=== PATIENT | female | born 1960 | race Caucasian/White ===

== ENCOUNTER 2017-01-30 02:26 | Emergency (ER) | payer MEDICARE, MEDICAID ==
[2016-09-22 10:45] VITALS: BMI 37.2
[~2017-01-30 02:26] MED LIST: ACTOS15 MG PO; ASCORBIC ACID500 MG PO; BOOST PO; CARAFATE1 G/10 ML PO; CELEXA40 MG PO; CHRONULAC30 ML PO; CIPRO500 MG PO; COZAAR100 MG PO; DAKIN'S 0.125%480 ML TP; DEXTROSE 50%/WA50 ML IV; DILAUDID 012 MG/30 M IV; DIPROLENE 0.05%60 M1 TOPICAL; DRISDOL50000 UNIT PO; ENSURE PO; GABAPENTIN100 MG PO; GLUCAGON1 MG/KIT IM; GLUCAGON1 MG/KIT SQ; HUMULIN R100 U/ML SQ; HYDROCODON-ACE1 EAC9 PO; INSTA-GLUCOSE31 GM PO; JUVEN PO; LEVAQUIN PREMI750 MG IV; LEVEMIR100 U/M1 SQ; LOVENOX40 MG/0.4 SQ; MACROBID100 MG PO; MOTRIN600 MG PO; NARCAN INJ0.4 MG/ML IV; NEURONTIN 100100 MG PO; NEURONTIN600 MG PO; NORCO 10/325 TA1 TA1 PO; NORVASC5 MG PO; NOVOLIN R100 U/ML SQ; OXYBUTYNIN CHLOR5 MG PO; OXYCODONE HCL10 MG PO; PERCOCET 10/3251 TA1 PO; PRILOSEC20 MG PO; PROTEIN LIQUID30 ML PO; PROTONIX40 MG PO; TYLENOL W/CODEI1 TAB PO; VESICARE10 MG PO; VITAMIN D50000 UNIT PO; [UNRECOGNIZED DRUG - OTHER]
== END 2017-01-30 03:49 | disposition home or self-care (01) ==
LOC: D.ER 02:26
DX: S39.012A Strain of muscle, fascia and tendon of lower back, initial encounter (principal); W01.0XXA Fall on same level from slipping, tripping and stumbling without subsequent striking against object, initial encounter; Y93.89 Activity, other specified; Y92.019 Unspecified place in single-family (private) house as the place of occurrence of the external cause; S32.029A Unspecified fracture of second lumbar vertebra, initial encounter for closed fracture; I10 Essential (primary) hypertension; G47.30 Sleep apnea, unspecified; F17.200 Nicotine dependence, unspecified, uncomplicated

== ENCOUNTER 2017-03-05 16:54 | Inpatient (IN) | payer MEDICARE, MEDICAID ==
[~2017-03-05] VITALS: Ht 160 cm; Wt 110.5 kg
--- NOTE | ~2017-03-05 | HEMODYNAMI ---
PATIENT:TIMO FUCHS MEDICAL RECORD: [id number] : 60 [id number] ADMISSION DATE: 03/05/17 Generatedon:03/11/201714:14 Patient name: TIMO FUCHS Patient #: [id number] SSN: : Date of study: 03/11/2017 Page: Of Hemodynamic Procedure Report Patient Data Patient Demographics Procedure consent was obtained First Name: TIMO Gender: Female Last Name: JEF : 1960 Middle Initial: L Age: 56 year(s) Patient #: [id number] Race: Unknown Additional ID: [id number] Contact details Address: [address] [place] [address] [place] State: [place] City: [facility] Zip code: [address] Admission Admission Data Admission Date: 03/05/2017 Admission Time: 16:54 Room #: .211 Procedure Procedure Types Cath Procedure Peripheral Cath Diagnostic Procedure Miscellaneous Procedure Description Procedure Date Procedure Date: 03/11/2017 Procedure Start Time: 13:25 Procedure End Time: 14:13 Procedure Staff Name Function Ulises Miller MD Performing Physician Teagan Mccrackne RT Scrub Zo Ruffin RN Nurse Ramesh Ashton RT Monitor Procedure Data Cath Procedure Fluoroscopy Diagnostic fluoroscopy Total fluoroscopy Time: 6.5 time: 6.5 min min Diagnostic fluoroscopy Total fluoroscopy dose: 704 dose: 704 mGy mGy Hemodynamics Rest Heart Rate: 77 (bpm) Snapshots Pre Cath Intra NCS Post Cath Vital Signs Time Heart Resp SPO2 NIBP (mmHg) Rhythm Pain Sedation Rate (ipm) (%) Status Level (bpm) 13:11:01 76 18 98 Measuring NSR 0 (11) 10(A) , No pain 13:11:34 75 15 99 146/70(112) NSR 0 (11) 9(A) , No pain 13:16:33 73 14 97 Auto NIBP NSR 0 (11) 9(A) off , No pain 13:21:32 74 19 99 Auto NIBP NSR 0 (11) 9(A) off , No pain 13:22:42 74 19 99 133/67(103) NSR 0 (11) 9(A) , No pain 13:27:41 76 18 95 Auto NIBP NSR 0 (11) 9(A) off , No pain 13:30:16 81 20 96 139/65(99) NSR 0 (11) 9(A) , No pain 13:35:16 86 17 97 Auto NIBP NSR 0 (11) 9(A) off , No pain 13:39:13 91 21 95 138/58(104) NSR 0 (11) 9(A) , No pain 13:44:12 97 19 96 Auto NIBP NSR 0 (11) 9(A) off , No pain 13:49:11 104 19 96 Auto NIBP NSR 0 (11) 9(A) off , No pain 13:51:16 107 17 96 158/68(105) NSR 0 (11) 9(A) , No pain 13:56:15 115 21 97 Auto NIBP NSR 0 (11) 9(A) off , No pain 14:01:14 122 18 96 Auto NIBP NSR 0 (11) 9(A) off , No pain 14:06:13 123 18 98 Auto NIBP NSR 0 (11) 9(A) off , No pain 14:11:12 119 19 97 Auto NIBP NSR 0 (11) 9(A) off , No pain Procedure Log Time Note 12:43:43 Ramesh [facility] RT (R) (CV) sent for patient. Start room use. 12:43:50 Time tracking: Regular hours 12:43:55 Plan of Care:Hemodynamics will remain stable., Cardiac rhythm will remain stable., Comfort level will be maintained., Respiratory function will remain adequate., Patient/ family verbilizes understanding of procedure., Procedure tolerated without complication., Recovers from procedure without complications.. 12:44:04 Warm blankets applied, and sebastian hugger turned on for patient comfort. 12:44:13 Signed procedure consent form obtained from patient. 12:44:14 Correct patient and procedure confirmed by team. 12:44:16 ECG and BP/O2 sat monitors applied to patient. 12:44:22 Rhythm: sinus rhythm 12:44:27 Full Disclosure recording started 12:44:27 - 12:44:30 H&P Date Dictated: 03/11/2017 Within 30 days and on chart.. 12:44:31 Pre-procedure instructions explained to patient. 12:44:32 Pre-op teaching completed and patient verbalized understanding. 12:44:33 Family in waiting room. 12:44:35 Patient NPO since Midnight. 12:44:40 - 12:45:38 SEE ANESTHESIA NOTE FOR PRE PROCEDURE TIVA 12:46:00 Sharps counted by scrub and verified by R.N. 12:46:22 Lumbar area was prepped with betadine and draped in sterile fashion 12:46:36 Use device set IR Diagnostic 12:46:38 Sterile Angiographic Pack opened to sterile field. 12:46:38 Bag Decanter opened to sterile field. 13:09:12 Vital chart was started 13:09:30 Baseline sample Acquired. 13:24:02 Physician arrived 13:24:03 --------ALL STOP TIME OUT------ 13:24:04 Final Timeout: patient, procedure, and site verified with staff and physician. All members of the team are in agreement. 13:24:09 Lumbar site verified by team. 13:24:48 Physical assessment completed. ASA score P 3 - A patient with severe systemic disease as per Ulises Miller MD. 13:24:52 Sedation plan: IV Moderate Sedation Propofol 13:24:56 Procedure started. 13:25:04 Local anesthetic to Lumbar area with Lidocaine 1% by Ulises Miller MD.INITIAL ACCESS ONLY 13:25:42 JORJE 15/2 VERT AUGMENTATION opened to sterile field. 13:25:42 JORJE AUTOPLEX MIXER W/VHV opened to sterile field. 13:25:43 [place] 11G Curved Needle opened to sterile field. 13:25:44 [place] BONE BX 11GA kit opened to sterile field. 13:35:06 BX L-2 TAKEN 13:44:12 Jorje Hand Drill 10G opened to sterile field. 13:44:15 JORJE 10 G CURETTE opened to sterile field. 13:57:50 Procedure ended.(Physican Out) 13:58:40 Fluoroscopy time 06.50 minutes. 13:58:45 Fluoroscopy dose: 704 mGy 13:58:45 Flurop Dose total: 704 13:58:48 Insertion/operative site no bleeding no hematoma. 13:58:58 Post Lumbar area:stable 13:59:04 Post-procedure physical assessment completed. ASA score P 3 - A patient with severe systemic disease as per Ulises Miller MD. 13:59:19 Procedure and supply charges have been captured, reviewed, submitted an d are correct. 14:13:28 Patient transfered to Recovery Room with Bed. 14:13:32 Procedure ended. 14:13:32 Full Disclosure recording stopped 14:14:11 Vital chart was stopped Device Usage Item Name Manufacture Quantity Catalog Hospital Part Current Minim al Lot# / Number Charge Number Stock Stock Serial# Code Sterile Cardinal 1 [id number] 5 Angiographic Health Pack Bag Decanter Microtek 1 [id number] [id number] 5 [employer] JORJE 15/2 Jorje 1 [id number] [id number] [id number] 5 VERT AUGMENTATION JORJE [place] 1 [id number] 827170 83594 [id number] 5 AUTOPLEX MIXER W/VHV [place] 11G [place] 1 [id number] 112014 521586 5 Curved Needle Jorje BONE [place] 1 [id number] [id number] [id number] 5 BX 11GA kit [place] Hand Jorje 1 [id number] 565744 [id number] 5 Drill 10G JORJE 10 G [place] 1 [id number] 705392 [id number] 5 CURETTE Signature Audit [place] Stage Time Signature Unsigned Intra-Procedure 03/11/2017 Ramesh 2:14:09 PM Daisha RT (R) (CV) Signatures Monitor : Ramesh Signature : Daisha RT Date : Time : [address] [place] [address]
[2017-03-05 17:29] VITALS: BP 154/80; BMI 32.6
[2017-03-05 18:31] LABS: BASOPHILS 0.1 % (0.0-2.0); EOSINOPHILS 1.1 % (0-7); HEMATOCRIT 33.4 % (36.0-48.0); HEMOGLOBIN 11.2 g/dL (12-16); IMMATURE GRANULOCYTES 0.1 % (0-5); LYMPHOCYTES 9.2 % (15-50); MCH 29.9 pg (26.0-34.0); MCHC 33.5 g/dL (31.0-37.0); MCV 89.1 fL (80.0-100.0); MEAN PLATELET VOLUME 10.2 fL (7.4-10.4); MONOCYTES 7.1 % (2-11); NEUTROPHILS 82.4 % (40-80); RBC 3.75 10x6/uL (4.00-5.40); RDW 15.2 % (11.5-14.5)
[2017-03-05 18:36] LABS: PLATELET COUNT 111 10x3/uL (130-400)
--- NOTE | 2017-03-05 18:52 | NUR ---
PT REFUSED TO ALLOW ME TO ACCESS HER PORT OR START IV UNTIL HER PAIN MEDICATION KICKS IN. ALSO REFUSED LOVENOX UNTIL MED KICKED IT SO I HAD PHARMACY RETIME MEDS AND GAVE SHIFT REPORT AND NIGHTSHIFT WILL ACCESS.
[2017-03-05 18:55] LABS: ALBUMIN 2.8 g/dL (3.4-5.0); ANION GAP 16.5 mmol/L (8-16); BILIRUBIN - TOTAL 0.57 mg/dL (0.2-1.3); CARBON DIOXIDE 18.1 mmol/L (21.0-32.0); CREATININE - SERUM 1.7 mg/dL (0.6-1.3); POTASSIUM - SERUM 3.6 mmol/L (3.5-5.1); PROTEIN - SERUM 9.1 g/dL (6.4-8.2)
[2017-03-05 19:00] VITALS: BP 141/40
--- NOTE | 2017-03-05 19:27 | NUR ---
BACK IN ROOM FROM X RAY. NOTIFIED PT THAT WE WILL HAVE EDUCATION PROGRAM MANAGER HERE TO ACCESS IFP.
--- NOTE | 2017-03-05 19:30 | NUR ---
SPOKE WITH DR NOLASCO, INFORMED OF CRITICALLY HIGH CALCIUM. ORDERS GIVEN AND PLACED IN [facility].
--- NOTE | 2017-03-05 20:37 | NUR ---
GALO Verde RN AT BED SIDE TO ACCESS LEFT CHEST INFUSAPORT, 3/8 TH INCH, 20 GUAGE WHEELER NEEDLE USED TO ACCESS PORT USING STERILE TECHNIQUE. FLUSHES WITH OUT DIFFICULTY AND EASY BLOOD RETURN NOTED. PT TOLERATED WELL.
--- NOTE | 2017-03-05 21:36 | NUR ---
CHANGED OUT WAFER AND BAG OF ILEOSTOMY. PTS ABD RED AND EXCORIATED, OPEN SORE TO RIGHT SIDE ABD. UNSTAGABLE WOUND NOTED TO PTS RIGHT GROIN, MULTIPLE OPEN AREAS ALSO NOTED TO FOLDS IN BETWEEN BUTTOCKS AND BILATERAL GLUTEAL FOLDS. HAD CHARGE NURSE ASSESS WOUNDS WELL. PT STATES THAT WOUNDS "ARE VERY PAINFUL" INFORMED PT THAT I WILL PUT IN A WOUND CARE CONSULT FOR TREATMENT AND THAT I WILL BE BACK SHORTLY WITH MORPHINE FOR PAIN CONTROL. REPOSITIONED IN BED FOR COMFORT. BED LOW, CL IN REACH.
--- NOTE | 2017-03-05 22:03 | NUR ---
HS MEDS GIVEN, MORPHINE 2 MG GIVEN FOR C/O PAIN, PT REATES PAIN AT AN 8 ON PAIN SCALE. ROCEPHIN INFUSING TO LEFT CHEST INFUSAPORT, NO S/S ADVERSE REACTION NOTED.
--- NOTE | 2017-03-06 06:44 | NUR ---
MANUFACTURING SUPERVISOR 2ND SHIFT AT BED SIDE, BATH AND LINEN CHANGE COMPLETE.
--- NOTE | 2017-03-06 06:50 | NUR ---
MEDITECH DOWN THROUGHOUT THE NIGHT, SEE PAPER NARRATIVE.
[2017-03-06 07:08] LABS: BASOPHILS 0.2 % (0.0-2.0); EOSINOPHILS 2.4 % (0-7); HEMATOCRIT 30.5 % (36.0-48.0); IMMATURE GRANULOCYTES 0.2 % (0-5); LYMPHOCYTES 7.5 % (15-50); MCH 28.8 pg (26.0-34.0); MCHC 32.8 g/dL (31.0-37.0); MCV 87.9 fL (80.0-100.0); MEAN PLATELET VOLUME 9.6 fL (7.4-10.4); MONOCYTES 8.9 % (2-11); NEUTROPHILS 80.8 % (40-80); PLATELET COUNT 106 10x3/uL (130-400); RBC 3.47 10x6/uL (4.00-5.40); RDW 15.4 % (11.5-14.5); WBC 6.3 10x3/uL (4.8-10.8)
[2017-03-06 07:11] LABS: CARBON DIOXIDE 17.9 mmol/L (21.0-32.0); CREATININE - SERUM 1.6 mg/dL (0.6-1.3); POTASSIUM - SERUM 3.9 mmol/L (3.5-5.1)
[2017-03-06 08:22] LABS: APTT 34.1 SECONDS (22.8-39.4); INR 1.45 (0.85-1.17); PROTIME 17.6 SECONDS (11.6-15.0)
[2017-03-06 08:50] VITALS: BP 133/57
[2017-03-06 10:26] VITALS: Ht 160 cm; Wt 110.5 kg
[2017-03-06 10:53] LABS: ALBUMIN 2.4 g/dL (3.4-5.0)
--- NOTE | 2017-03-06 11:50 | NUR ---
WOUND CARE CONSULT: ON ASSESSMENT NOTED PT TO HAVE NUMEROUS PRESSURE INJURIES AND OPEN WOUNDS. FROM SACRUM TO COCCYX/PERINEAL AREA IS OPEN WITH STAGE 2 PRESSURE INJURIES. WOUND BEDS ARE RED/PINK/SHINY. ENTIRE AREA MEASURES APPROX 19CM X 3CM X 1CM. PERIWOUND APPEARS NORMAL. RIGHT GLUTEAL FOLD HAS 2 STAGE 3 PRESSURE INJURIES. #1 MEASURES 0.5CM X 1CM X 1.5CM #2 MEASURES 2CM X 4CM X 2CM X 2.4CM @ 10 OCLOCK LEFT GLUTEAL FOLD STAGE 3 PRESSURE INJURY MEASURINCM X 1.5CM X 1CM LABIA: HAS OPEN WOUND MEASURING 1CM X 1.5CM X 1CM RIGHT LOWER ABDOMINAL QUAD HAS OPEN AREAS MEASURING: #1 2.5CM X 7CM #2 2.5CM X 4CM BOTH ARE SUPERFICIAL AND HAVE RED/PINK WOUND BEDS. LLQ ILOSTOMY/PT TAKES CARE OF THIS. PT STATES THAT NOTHING IS BEING DONE FOR ABOVE MENTIONED WOUNDS AT HOME. SHE DOES NOT WANT AN AIR OVERLAY MATTRESS. SHE DOES WANT A GOMEZ CATH. DR. MORAN WAS CALLED BY STUDENT AND ORDERS WERE RECEIVED FOR F/C. WOUND CARE RECOMMENDS USING 1/4" IODOFORM PACKING TO WOUNDS FROM SACRUM TO COCCYX TO GLUTEAL FOLDS. PT CAN ONLY USE MEDIPORE TAPE SO COVER WOUNDS WITH ABD PADS TO CUSHION AND SECURE WITH MEDIPORE. DRY DRESSING APPLIED TO ABDOMEN. WOUND CARE WILL MONITOR.
[2017-03-06 11:54] VITALS: BP 155/44
--- NOTE | 2017-03-06 12:00 | NUR ---
REPORT OF WOUNDS CALLED TO DR MORAN. ORDERED RECIEVED TO PLACE INDWELLING GOMEZ CATHETER INSTEAD OF THE IN AND OUT CATH PREVIOUSLY ORDERED PER WALI WIGGINS RN NPC
--- NOTE | 2017-03-06 12:15 | NUR ---
16 KINYARWANDA GOMEZ INSERTED USING ASEPTIC TECHNIQUE IMMEDIATE RETURN OF CLEAR YELLOW URINE NOTED IN COLLECTION CONTAINER. STERILE SPECIMEN OBTAINED. PT TOLERATED PROCEDURED WELL TO RIGHT TILT POSITION WITH HOB 30 DEGREES. PT DENIES PAIN OR FURTHER NEEDS AT THIS TIME. ALL INTERVENTIONS PRECEPTED BY WALI WIGGINS RN
--- NOTE | 2017-03-06 14:00 | HP ---
PATIENT: TIMO FUCHS MEDICAL RECORD: [id number] ACCOUNT: [id number] LOCATION:[address] : 60 ADMISSION DATE: 03/05/17 HISTORY AND PHYSICAL EXAMINATION DATE OF ADMISSION: 03/05/2017 CHIEF COMPLAINT: Back pain and infection on belly. HISTORY OF PRESENT ILLNESS: This is a 56-year-old female with a history of diabetes, hidradenitis and ulcerative colitis, status post multiple revisions of ostomy on her abdomen. She fell going into her home, January 30 and came here and had a CT of her lumbar spine showing L2 compression fracture and that pain has gotten worse now. She also has cellulitis noted on her abdomen, is been going on for a couple of weeks. At that point, it was decided to admit her to the hospital for treatment of cellulitis and for her uncontrolled back pain due to compression fracture. PAST MEDICAL AND SURGICAL HISTORY: She has been admitted several times by Dr. Valderrama for revisions for her ostomy. She has had multiple ventral hernias. She has diabetes, depression, high cholesterol, hypertension, hidradenitis, familial hypercalcemia, sleep apnea on CPAP, iron deficient anemia, hepatitis C, cirrhosis and peripheral neuropathy. PAST SURGICAL HISTORY: She has had a total colectomy with ileostomy due to her ulcerative colitis and multiple ventral hernia repairs subsequently. HOME MEDICATIONS: Include oxycodone 10 mg twice a day, VESIcare 10 mg once a day, losartan 100 mg once a day, gabapentin 100 mg in the morning, 1 at noon and 3 at bedtime, citalopram 40 mg a day, amlodipine 5 mg a day, alprazolam 1 twice a day p.r.n. anxiety. ALLERGIES: SHABNAM INHIBITORS. SOCIAL HISTORY: She is and on disability due to her medical problems. HABITS: She smokes daily. Denies any alcohol use. She may have smoked some marijuana for recreationally. FAMILY HISTORY: History of cardiovascular disease and diabetes and sister of cancer. REVIEW OF SYSTEMS: GENERAL: No major weight changes. HEENT: No particular sinus or allergy problems. RESPIRATORY: No diagnosis of emphysema or asthma, although she is a long time smoker. CARDIAC: No history of coronary artery disease. GASTROINTESTINAL: She has ulcerative colitis and had total colectomy with ileostomy. She has had multiple ventral hernias, has had multiple revision of her ostomy ____ by Dr. Valderrama recently. MUSCULOSKELETAL: A few arthritic aches and pains. NEUROLOGIC: No history of seizures. No migraine headaches. PSYCHIATRIC: She has depression. INTEGUMENT: She has history of hidradenitis. HISTORY AND PHYSICAL [id number] TIMO FUCHS PHYSICAL EXAMINATION: VITAL SIGNS: Temperature 98.4, pulse 80, respirations 19, blood pressure 154/80, O2 sat 98% on room air. GENERAL: This is an obese White female in pain. HEENT: Grossly within normal limits. NECK: Supple. HEART: Regular rate and rhythm without murmur. LUNGS: Clear. ABDOMEN: With multiple scars from previous surgeries. She has ileostomy bag located to the middle left upper abdomen. There is cellulitis noted in the lower half of the abdomen, more so on the right, there are shallow ulcerations noted there as well. EXTREMITIES: Trace edema. MUSCULOSKELETAL: Back exam with severe tenderness in the lumbar area. ASSESSMENT: 1. Cellulitis. 2. Compression fracture, 01/30/2017 with worsening pain. PLAN: We will admit for IV antibiotics and pain control. We consult interventional radiology. Other tests and procedures as warranted. TRANSINT:[id number] Voice Confirmation ID: [id number] DOCUMENT ID: [id number] ERIKA MORAN MD at 1400 CC: [id number] DICTATION DATE: 03/05/172030 TEAM MANAGER: 03/05/172145 ADM IN [place] [id number] [place] [address]
[2017-03-06 14:02] LABS: APPEARANCE CLOUDY (CLEAR); BILIRUBIN NEGATIVE (NEGATIVE); COLOR YELLOW (YELLOW); GLUCOSE NEGATIVE (NEGATIVE); KETONE NEGATIVE (NEGATIVE); LEUKOCYTE ESTERASE 2+ (NEGATIVE); NITRITE NEGATIVE (NEGATIVE); PROTEIN TRACE mg/dL (NEGATIVE); SPECIFIC GRAVITY 1.015 (1.005-1.020); UROBILINOGEN NORMAL (NORMAL)
[2017-03-06 14:03] LABS: BACTERIA MODERATE /hpf (NONE SEEN); RED CELLS - URINE 0-5 /hpf (0-5)
[2017-03-06 14:04] LABS: AMORPHOUS SEDIMENT <1+ /lpf (NONE SEEN); GRANULAR CAST OCC /lpf (NONE SEEN); WAXY CAST RARE /lpf (NONE SEEN)
[2017-03-06 16:09] VITALS: BP 156/56
[2017-03-06 19:00] VITALS: BP 151/57
--- NOTE | 2017-03-06 19:28 | NUR ---
VALIUM 10 MG GIVEN PO SO PT CAN GO TO MRI. ILEOSTOMY LEAKING, REMOVED WAFER AND BAG, CLEANSED AREA AROUND STOMA AND REPLACED CLEAN WAFER AND BAG TO LEFT ABD. DRSG TO RIGHT ABD ALSO SOILED AND CHANGED. BATH AND LINEN CHANGE COMPLETE. DRSGS TO BUTTOCKS INTACT. GOMEZ DRAINING TO GRAVITY, PT DENIES NEEDS, WILL CONT TO MONITOR.
--- NOTE | 2017-03-06 20:15 | NUR ---
GONE TO MRI BY JEAN CARLOS.
--- NOTE | 2017-03-06 20:51 | NUR ---
HEARING AID DISPENSER CALLED, PT REQUESTING PAIN MEDS, MORPHINE 2 MG TAKEN TO MRI AND GIVEN VIA LEFT CHEST IFP.
--- NOTE | 2017-03-06 21:24 | NUR ---
BACK TO ROOM FROM MRI.
--- NOTE | 2017-03-06 21:48 | NUR ---
HS MEDS GIVEN. DENIES FURTHER NEEDS, BED LOW, CL IN REACH.
[2017-03-07] VITALS: BP 122/55
--- NOTE | 2017-03-07 00:57 | NUR ---
RESTING WITH EYES CLOSED, RESPERATIONS EVEN, NO S/S DISTRESS NOTED.
--- NOTE | 2017-03-07 03:41 | NUR ---
AUTOMOBILE DETAILER AT BEDSIDE TO OBTAIN VITALS, CALL LIGHT IN REACH. WILL CONTINUE WITH PLAN OF CARE.
[2017-03-07 04:00] VITALS: BP 95/47
--- NOTE | 2017-03-07 08:10 | NUR ---
PATIENT IS AWAKE AND ALERT, DENIES NEEDS. SHE WORE HER CPAP WHILE ASLEEP.
[2017-03-07 08:24] VITALS: BP 124/45
--- NOTE | 2017-03-07 11:32 | NUR ---
PATIENT IS RESTING WITH HOB UP 45 DEGREES. SHE IS AWAKE AND INTERACTIVE. SHE HAS A PERSONAL ODOR THAT RESEMBLES A YEAST. FRESH WATER GIVEN TO TAKE MEDICATIONS WITH. SHE DENIES OTHER NEEDS AT THIS TIME. SHE HASN'T HAD A BATH YET TODAY.
[2017-03-07 11:55] VITALS: BP 131/57
--- NOTE | 2017-03-07 12:19 | NUR ---
PATIENT SITTING UP IN HER BED EATING HER LUNCH. SHE STATE SHAT HER PAIN IS LESS SINCE "GETTING OFF MY BUTT".
[2017-03-07 16:21] VITALS: BP 126/55
--- NOTE | 2017-03-07 16:28 | NUR ---
Patient Name: TIMO FUCHS Admission Status: Urgent Accout number: [id number] Admission Date: 03-05-2017 : 1960 Admission Diagnosis:CELLULITIS OF ABDOMINAL WALL Attending: MIGUELANGEL Current LOS: 2 Anticipated DC Date: TO BE DETERMINED Planned Disposition: [facility] Facility Primary Insurance: [facility] PLANNED EXTERNAL PROVIDER: [facility], MEDICARE REHAB BED Discharge Planning Comments: * Is the patient Alert and Oriented? Yes 0 * How many steps to enter\exit or inside your home? 5 0 * PCP DR. MORAN 0 * Pharmacy [facility] [address] BY ISAEL'Sravani 0 * Preadmission Environment Home with Family 0 * ADLs Independent 0 * Equipment Cane CPAP Walker 0 * Other Equipment [facility] PATIENT - MEDICAL EQUIPMENT PROVIDER 0 * List name and contact numbers for known caregivers / representatives who currently or will assist patient after discharge: STANFORD FUCHS, SEPERATED SPOUSE, 0 * Community resources currently utilized None 0 * Please name any agencies selected above. NONE 0 * Additional services required to return to the preadmission environment? Yes * Can the patient safely return to the preadmission environment? Yes 0 * Has this patient been hospitalized within the prior 30 days at any hospital? No 0 CM MET WITH PT IN ROOM TO DISCUSS DISCHARGE PLANNING AND NEEDS. PT REPORTS LIVING AT HOME INDEPENDENTLY AND HER ADULT DAUGHTER IS LIVING WITH HER. PT HAS CANE, CPAP AND WALKER FROM [facility] PATIENT. PT HAS NO OUTSIDE SERVICES ASSISTING IN THE HOME. PT REPORTS HER SEPERATED SPOUSE HAS BEEN DELVERING MEDICATIONS TO HER AT HOME, HER NEPHEW HAD BEEN DOING ERRANDS SUCH SHOPPING AND HER DAUGHTER HAS BEEN HELPING TO CLEAN AND COOK AT HOME. CM DISCUSSED AVAILABILITY OF HOME HEALTH, REHAB SERVICES AND MEDICAL EQUIPMENT. PT FEELS SHE NEEDS REHAB AND HELP WITH WOUND CARE PRIOR TO GOING BACK HOME, PT DOES NOT THINK SHE CAN TOLERATE THREE HOURS OF PROGRESSIVE THERAPY PER DAY FOR INPATIENT REHAB. CM DISCUSSED SNF OPTIONS. PT CHOSE [facility] AND [facility] HER MOTHER HAD BEEN TO THE FACILITIES WHEN SHE WAS ALIVE. CHOICE SIGNED. CM NOTIFIED [facility], CLINICAL LIAISON OF REFERRAL, . CM FAXED REFERRAL TO [facility] AT [phone]. CM WAITING ADMISSION DETERMINATION AND INSURANCE AUTHORIATION TO THE [facility] OR [facility] FOR REHAB SERVICES. [place] Marshal: Bryan Dickinson
[2017-03-07 20:00] VITALS: BP 150/56
[2017-03-08] VITALS: BP 181/66
--- NOTE | 2017-03-08 00:47 | NUR ---
RESTING WITH EYES CLOSED, RESPERATIONS EVEN, NO S/S DISTRESS NOTED.
--- NOTE | 2017-03-08 04:17 | NUR ---
CHAIR AT BEDSIDE TO OBTAIN VITALS, CALL LIGHT IN REACH. WILL CONTINUE WITH PLAN OF CARE.
[2017-03-08 08:19] VITALS: BP 135/62
--- NOTE | 2017-03-08 08:22 | NUR ---
PATIENT IS SITTING UP IN HER BED, HEAD ELEVATED 60 DEGREES SHE EATS HER BREAKFAST. WE DISCUSSED HER POC FOR THE DAY. SHE ASKS ABOUT POSSIBILITY FOR ADMISSION INTO REHAB. ENCOURAGED HER TO PARTICIPATE WITH PT AND OT SO THAT HER LEVEL OF FUNCTIONING CAN BE ASSESSED AND A PLAN OBTAINED TO PREPARE HER FOR RETURN HOME OR TO A SKILLED FACILITY. SHE VOICED UNDERSTANDING.
--- NOTE | 2017-03-08 11:10 | NUR ---
PATIENT'S ILIOSTOMY BAG CHANGED AND LINENS CHANGED. ALSO DC'D THE GOMEZ CATHETER AFTER THE BULB DEFLATED. IT WAS REMOVED WITHOUT ANY C/O DISCOMFORT. PATIENT GOT UP OOB TO [facility] BEDSIDE AND WALKED ABOUT THE SIDE OF BED I CHANGED THE LINENS, ALL DONE INDEPENDENTLY
[2017-03-08 12:44] VITALS: BP 130/54
--- NOTE | 2017-03-08 13:49 | NUR ---
Nutrition Follow Up: Pt reported that her appetite is good. She said that she has been ordering Boost. Pt agreed to try Gerald BID. Pt is eating 83% meal avg on a regular diet. Noted per wound care nurse pt has multiple stage II and stage III ulcers, as well as multiple open areas. I<O. Labs reviewed - BUN, Cr elevated. Meds noted including NS @ 50 ml/hr. Rec continue current diet. Rec MV, Zinc, Vit C supplement daily. Will send Gerald BID. Will continue to provide selective menus and honor food preferences. RD following.
--- NOTE | 2017-03-08 14:19 | NUR ---
PATIENT'S BED LINENS CHANGED PER REQUEST. SHE IS VISITING WITH HER SISTER WHO HAS BEEN AT THE BEDSIDE MUCH OF THE MORNING AND AFTERNOON.
--- NOTE | 2017-03-08 15:57 | NUR ---
OT NOTE: PT COMPLETED BUE AROM EXS IN ALL PLANES WITH MAX CUES. PT COMPLETED HYGIENE TASK WITH MOD A. PT COMPLETED BED MOB. THANK YOU, GARLAND LOZANO/Vinay
[2017-03-08 16:00] VITALS: BP 148/64
[2017-03-08 19:00] VITALS: BP 136/58
--- NOTE | 2017-03-08 19:44 | NUR ---
ALERT/AWAKE DENIES PAIN OR ANY NEEDS. L CHEST IP INTACT WITH NS INFUSING AT 50ML/HR. LEFT LOWER ABD ILEOSTOMY CONTAINING DK BROWN LIQUID NOTED. ORIENTED TO CALL LIGHT FOR ANY NEEDS OR DISCOMFORTS.
--- NOTE | 2017-03-08 21:40 | NUR ---
ADMIN SCHED MEDS. EMPTIED ILEOSTOMY 300CC. ASSISTED TO BATHROOM TO VOID.
[2017-03-09] VITALS: BP 148/61
--- NOTE | 2017-03-09 00:30 | NUR ---
ONLINE MEDIA BUYER PRESENT IN ROOM TAKING VS. STATED SHE HAD EMPTIED ILEOSTOMY.
[2017-03-09 04:00] VITALS: BP 156/70
--- NOTE | 2017-03-09 04:48 | NUR ---
CHANGED ILEOSTOMY BAG AND DRESSINGS TO COCCYX/BUTTOCK FOLDS.
--- NOTE | 2017-03-09 07:15 | NUR ---
RECEIVED REPORT. ASSUMED CARE OF PATIENT. CALL LIGHT WITHIN REACH. PATIENT RESTING ON LEFT LATERAL SIDE WITH EYES CLOSED. EASILY AROUSED. RESP EVEN AND UNLABORED. NO DISTRESS. IV FLUIDS INFUSING ORDERED. DENIES NEEDS AT THIS TIME.
[2017-03-09 08:12] VITALS: BP 127/59
--- NOTE | 2017-03-09 10:00 | NUR ---
ILLEOSTOMY EMPTYED AT THIS TIME. RESTING IN BED. DENIES NEEDS.
[2017-03-09 11:49] VITALS: BP 146/55
--- NOTE | 2017-03-09 15:00 | NUR ---
ANSWERED EMERGENCY LIGHT IN PATIENT ROOM, WHEN ENTERED PATIENT PONCE, PATIENT SITTING ON BATHROOM FACING THE WALL. PATIENT SITTING ON PINK BED PAD IN THE FLOOR. PATIENT DENIES PAIN OR INJURIES AT THIS TIME. PATIENT PULLED OUT OF BATHROOM VIA PINK BED PAD AND ASSISTED TO STANDING POSITION WITH HELP OF LIANET SLATER. PATIENT ASSISTED TO STAND AFTER ENSURING PATIENT HAD FULL ROM TO BILATERAL LOWER EXTREMITIES. AFTER PATIENT ASSISTED TO STAND, PATIENT AMBULATED TO SIDE OF BED AND SAT DOWN. PATIENT STATES THAT SHE GOT UP TO GO TO THE BATHROOM AND HAS SMALL INCONTINENT EPISODE ON THE FLOOR SO SHE WENT TO THE BED AND GRABBED THE BEDPAD AND WENT BACK TO THE BATHROOM TO CLEAN UP THE URINE ON THE FLOOR AND THAT IS WHEN SHE SAT DOWN IN THE FLOOR. PATIENT STATED SHE WAS TOOK WEAK TO MAKE IT BACK TO THE BED. PATIENT CLEANSED UP, NEW GOWN APPLIED. BOX ALARM PATENT TO PATIENT AT THIS TIME. PATIENT DENIES PAIN OR DISCOMFORT. PATIENT SITTING IN BED CONSUMING SOFT DRINK AT THIS TIME. NO DISTRESS.
[2017-03-09 15:51] VITALS: BP 157/67
--- NOTE | 2017-03-09 18:00 | NUR ---
RESTING IN BED WITH EYES CLOSED. EASILY AROUSED. DENIES NEEDS AT THIS TIME.
[2017-03-09 20:57] VITALS: BP 122/50
--- NOTE | 2017-03-09 21:10 | NUR ---
ADMIN SCHED MEDS. EMPTIED ILEOSTOMY BAG. ASSISTED TO BR, BUT VOIDED ON FLOOR. CLEANED UP URINE, CHANGED BEDDING.
[2017-03-10 00:30] VITALS: BP 145/88
--- NOTE | 2017-03-10 02:58 | NUR ---
EMPTIED ILEOSTOMY. DENIES ANY NEEDS.
[2017-03-10 04:30] VITALS: BP 145/62
--- NOTE | 2017-03-10 07:00 | NUR ---
RECEIVED REPORT. ASSUMED CARE OF PATIENT. CALL LIGHT WITHIN REACH. PATIENT STATES SHE SLEPT WELL LAST NIGHT. DENIES NEEDS THIS AM. RESP EVEN AND UNLABORED. BOX ALARM ATTACHED TO GOWN ON RIGHT SHOULDER. NO DISTRESS.
[2017-03-10 08:12] VITALS: BP 143/77
--- NOTE | 2017-03-10 10:00 | NUR ---
PATIENT FOUND AT BEDSIDE WITHOUT BOX ALARM ATTACHED. BOX ALARM APPLIED AND REINFORCED THE NEED TO CALL FOR ASSISTANCE TO PREVENT INJURIES. PATIENT VERBALZIED HER UNDERSTANDING.NO DISTRESS.
[2017-03-10 11:52] VITALS: BP 149/54
[2017-03-10 15:13] VITALS: BP 171/75
--- NOTE | 2017-03-10 17:26 | NUR ---
ILLEOSTOMY CARE PROVIDED AT THIS TIME. COMPLETE NEW WAFFER AND BAG APPLIED AFTER PROVIDING SKIN CARE. NO DISTRESS.
--- NOTE | 2017-03-10 19:39 | NUR ---
RECEIVED IN BEDROO. LAYING WITH EYES CLOSED. NO SIGNS OF DISTRESS. BOX ALARM ON. ENCOURAGE TO ASK FOR ASSIST WHEN NEEDED. CONTINUE MONITOR. CALL LIGHT IN REACH
[2017-03-10 20:00] VITALS: BP 157/60
--- NOTE | 2017-03-10 22:52 | NUR ---
RESTING IN EYES CLOSED. NO SIGNS OF DISTRESS. BED ALARM ON. CALL LIGHT IN REACH
[2017-03-11] VITALS (11 sets, daily range): BP systolic 113–171; BP diastolic 60–76
--- NOTE | 2017-03-11 02:18 | NUR ---
RESTING IN BED WITH EYES CLOSED. NO SIGNS OF DISTRESS. CALL LIGHT IN REACH.
--- NOTE | 2017-03-11 07:24 | NUR ---
PT SITTING UP IN BED WAS JUST CLEANED UP FOR INC OF URINE. DENIES NEEDS WILL CONT TO MONITOR
[2017-03-11 07:56] LABS: APPEARANCE CLEAR (CLEAR); BILIRUBIN NEGATIVE (NEGATIVE); COLOR YELLOW (YELLOW); GLUCOSE NEGATIVE (NEGATIVE); KETONE NEGATIVE (NEGATIVE); LEUKOCYTE ESTERASE NEGATIVE (NEGATIVE); NITRITE NEGATIVE (NEGATIVE); PROTEIN NEGATIVE (NEGATIVE); SPECIFIC GRAVITY 1.015 (1.005-1.020); UROBILINOGEN NORMAL (NORMAL)
[2017-03-11 07:57] LABS: BASOPHILS 0 % (0.0-2.0); EOSINOPHILS 0 % (0-7); HEMATOCRIT 30.4 % (36.0-48.0); IMMATURE GRANULOCYTES 0.4 % (0-5); LYMPHOCYTES 5.3 % (15-50); MCH 29.5 pg (26.0-34.0); MCHC 32.9 g/dL (31.0-37.0); MCV 89.7 fL (80.0-100.0); MEAN PLATELET VOLUME 10.3 fL (7.4-10.4); MONOCYTES 3.6 % (2-11); NEUTROPHILS 90.7 % (40-80); PLATELET COUNT 101 10x3/uL (130-400); RBC 3.39 10x6/uL (4.00-5.40); RDW 15.8 % (11.5-14.5); WBC 6.7 10x3/uL (4.8-10.8)
[2017-03-11 08:06] LABS: ANION GAP 13.8 mmol/L (8-16); CARBON DIOXIDE 19.6 mmol/L (21.0-32.0); CREATININE - SERUM 1.4 mg/dL (0.6-1.3); POTASSIUM - SERUM 4.4 mmol/L (3.5-5.1)
[2017-03-11 08:11] LABS: CALCIUM 13.6 mg/dL (8.5-10.1)
[2017-03-11 08:19] LABS: INR 1.39 (0.85-1.17); PROTIME 16.9 SECONDS (11.6-15.0)
--- NOTE | 2017-03-11 09:12 | NUR ---
PT HAS CRITICAL HIGH CALCIUM OF 13.6. CALLED DR MORAN OFFICE AND SPOKE WITH CHLOE. ALSO ASKED IF PT COULD HAVE GOMEZ PLACED DUE TO STG 3- STG 4 SORES ON BOTTOM AND VAGINAL AREA. SHE IS GOING TO CALL ME BACK
--- NOTE | 2017-03-11 09:18 | NUR ---
DR MORAN GAVE OK FOR GOMEZ PLACEMENT. DR MORAN CALLED PHARM FOR ORDERS FOR HIGH CALCIUM
--- NOTE | 2017-03-11 09:51 | NUR ---
WAITING ON PHARM TO BRING UP MEDICATIONS TO GIVE PT
--- NOTE | 2017-03-11 10:23 | NUR ---
STUDENT NURSE INSERTED 16F GOMEZ STERILE TECHNIQUE INITIATED. 10CC STERILE FLUID INSERTED INTO BALLOON. STUDENT NURSE ALSO DID PT DRESSING CHANGE TO BOTTOM PER ORDER. R LABIAL FOLD NO DRESSING WILL STICK TO AREA. GOMEZ WAS PLACED TO KEEP MOISTURE AWAY FROM WOUNDS AND PROMOTE WOUND HEALING.
--- NOTE | 2017-03-11 11:56 | NUR ---
PT SITTING UP IN BED SLEEPING NO S/S DISTRESS NOTED WILL CONT TO MONITOR
--- NOTE | 2017-03-11 14:54 | NUR ---
PT BACK FROM KYPHOPLASTY VS WNL. SITE WNL. FAMILY AT BEDSIDE. PT STILL LETHARGIC WILL CONT TO MONITOR
--- NOTE | 2017-03-11 16:54 | NUR ---
PT SITTING UP IN BED SLEEPING NO S/S DISTRESS NOTED VS STILL WNL. SITE STILL WNL
--- NOTE | 2017-03-11 22:05 | NUR ---
ADMIN SCHED MEDS WITH SIPS OF WATER SWALLOWING WITHOUT DIFFICULTY. DENIES PAIN OR ANY NEEDS. L CHEST IP WITH NS INFUSING AT 50ML/HR. ILEOSTOMY BAG INTACT CONTAINING SMALL AMT FECAL MATTER. ORIENTED TO CALL LIGHT FOR ANY NEEDS.
--- NOTE | 2017-03-12 00:30 | NUR ---
SPA SUPERVISOR PRESENT IN ROOM TAKING VS. CHECK ILEOSTOMY BAG AND EXPELLED TO AIR IN IT. DENIES ANY NEEDS OR DISCOMFORTS.
[2017-03-12 00:36] VITALS: BP 154/61
--- NOTE | 2017-03-12 04:30 | NUR ---
MOBILITY SCOOTER REPAIRER PRESENT IN ROOM TAKING VS. DENIES PAIN OR ANY NEEDS. EMPTIED ILEOSTOMY BAG.
[2017-03-12 04:59] VITALS: BP 120/52; BP 161/64
[2017-03-12 07:49] VITALS: BP 159/64
--- NOTE | 2017-03-12 10:15 | NUR ---
Awake to name, able to verbalize name and , drowsy but follows conversation and answers. States no to any back pain, dressing from kypoplasty intact. Ileostomy left abd intact with greenish colored stool. No distress assessed.
[2017-03-12 11:19] VITALS: BP 156/71
--- NOTE | 2017-03-12 12:04 | NUR ---
Nutrition follow-up: Pt s/p marian. Diet: Regular PO intake ~75% average of ~75% of last 7 meals; pt was NPO x 2 meals Wt: 243# Ileostomy Pt receiving Gerald BID to aid with wound healing. Will continue to provide food choices and honor food preferences. RDN following.
--- NOTE | 2017-03-12 13:40 | NUR ---
Sitting up in bed continuing to eat her lunch, alert and wisting with family.
--- NOTE | 2017-03-12 14:14 | NUR ---
OT NOTE: PT SEEN TODAY PRIOR TO LUNCH. PT HAD A VERY DIFFICULT TIME PROCESSING WHAT THERAPIST WAS SAYING. SHE LOOKED AT ME WITH BLANK STARE, IF SHE DIDNT HEAR ME..REPEATED SEVERAL TIMES IN LOUD VOICE WITH NO RESPONSE; EXPLAINED TO PT THAT I WAS GOING TO GET SOMEONE TO HELP ME GET HER UP IN BED AND SHE SAID " THAT LADY'S GONE TO GET HELP" . ASKED ABOUT HER PAIN AND PAIN LEVEL 4 TIMES WITHOUT RESPONSE. PROVIDED SET UP OF TRAY, PT HAD NO PROBLEMS FEEDING SELF.
[2017-03-12 15:25] VITALS: BP 142/73
--- NOTE | 2017-03-12 17:40 | NUR ---
OT NOTE: PT COMPLETED SELF FEEDING TASK WITH SBA. PT COMPLETED BUE GROSS MOTOR AXS FOR INCREASED I WITH ADLS. PT COMPLETED BED MOB WITH SBA. THANK YOU, GARLAND LOZANO/Vinay
--- NOTE | 2017-03-12 17:47 | NUR ---
Patient Name: TIMO FUCHS Encounter No: [id number] : 1960 Primary Insurance: [facility] Anticipated DC Date: Planned Disposition: Senior Care Facility External Planned Provider: [facility], MEDICARE REHAB BED DCP follow-up note: CM RECEIVED CALL FROM DASH, CLINICAL LIAISON FOR [facility], , WHO REPORTS HAVING INSURANCE AUTHORIZATION FROM PT'S INSURANCE FOR REHAB. [facility] NEEDS TO KNOW PT'S OSTOMY SUPPLY NEEDS AND LATEST URINE CULTURES FAXED. CM SPOKE TO PT AND IDENTIFIED PT NEEDING LYNN LOCK AND ROLL DRAINABLE POUCH #[id number] / 4" CUT TO FIT SKIN BARRIER / PASTE. PT IN AGREEMENT WITH DISCHARGE TO [facility] FOR REHAB. CM FAXED REQUESTED INFORMATION TO [facility]. FOR DISCHARGE TO REHAB AT [facility], FAX DISCHARGE INFORMATION TO [facility] AT [phone]; CALL NURSE REPORT TO [facility] AT [phone]. [facility] TO ARRANGE VAN TRANSPORTATION. Bryan Dickinson, CASE MANAGEMENT
[2017-03-12 19:00] VITALS: BP 163/65
--- NOTE | 2017-03-12 19:17 | NUR ---
FAMILY AT NURSES DESK, EXPRESSING CONCERN ABOUT PTS CONFUSION. EXPLAINED TO DAUGHTER THAT I HAVENT NOTICED ANY CONFUSION IN PT THE SEVERAL NIGHTS THAT I HAVE CARED FOR HER, WENT OVER LAB VALUES WITH FAMILY. DAUGHTER ASKING ABOUT AMMONIA LEVEL AND ASKING IF ONE CAN BE ORDERED, INFORMED DAUGHTER THAT I WILL CALL DR MORAN AND ASK.
--- NOTE | 2017-03-12 19:40 | NUR ---
SPOKE WITH DR MORAN, EXPLAINED DAUGHTERS CONCERN, AMMONIA LEVEL ADDED TO AM LABS.
--- NOTE | 2017-03-12 20:17 | NUR ---
DRSG PLACED TO SMALL WOUND ON LEFT SIDE OF ABD ABOVE ILEOSTOMY.
--- NOTE | 2017-03-12 20:40 | NUR ---
HS MEDS GIVEN, RECLINER CHAIR TAKEN TO ROOM FOR SISTER TO STAY THE NIGHT.
--- NOTE | 2017-03-12 20:41 | NUR ---
REPOSITIONED IN BED, HS MEDS GIVEN, PT DENIES PAIN AND NEEDS, BED LOW, CL IN REACH.
[2017-03-13 00:34] VITALS: BP 163/68
--- NOTE | 2017-03-13 02:19 | NUR ---
RESTING WITH EYES CLOSED, RESPERATIONS EVEN, NO S/S DISTRESS NOTED.
[2017-03-13 04:00] VITALS: BP 160/75
--- NOTE | 2017-03-13 06:06 | NUR ---
NOTIFIED DR MORAN OF PTS ELEVATED AMMONIA LEVEL, NO NEW ORDERS GIVEN AT THIS TIME.
--- NOTE | 2017-03-13 07:00 | NUR ---
PT SITTING UP IN BED SLEEPING NO S/S DISTRESS NOTED FAMILY MEMBER AT BEDSIDE WILL CONT TO MONITOR
[2017-03-13 07:49] VITALS: BP 176/73
--- NOTE | 2017-03-13 09:28 | NUR ---
PT FAMILY MEMBER AT BEDSIDE. CHANGED PT JELANI AND BUTTOCK/COCCYX DRESSING EARLIER. PT CO PAIN DURING PROCEDURE. WOULD DOWN ENTIRE CREASE OF BUTTOCK AND GLUTEAL FOLDS. ALSO LABIAL FOLD. WOUND LOOKS PINK/RED. CLEANSED WITH WOUND CONSTRUCTION FOREMAN AND DID DRESSING PER ORDER. SIGNED AND DATED
--- NOTE | 2017-03-13 09:56 | NUR ---
CHANGED PT LEFT INFUSAPORT DRESSING PER UNIT PROTOCOL. STERILE TECHNIQUE INITIATED. SIGNED AND DATED DRESSING
[2017-03-13 11:29] VITALS: BP 175/66
--- NOTE | 2017-03-13 15:05 | NUR ---
PT SITTING UP IN BED SLEEPING SISTER AT BEDSIDE, NO S/S DISTRESS NOTED WILL CONT TO MONITOR
--- NOTE | 2017-03-13 15:06 | NUR ---
OT NOTE: PT WAS ASLEEP IN PM..DIFFICULT TO AROUSE
[2017-03-13 15:15] VITALS: BP 166/74
--- NOTE | 2017-03-13 17:27 | NUR ---
OT NOTE: PT COMPLETED BED MOB AND SITTING AT EOB WITH MIN/CGA. PT COMPLETED BUE GROSS MOTOR AX FOR INCREASED I WITH ADLS. PT COMPLETED HYGIENE TASK WITH SET UP. THANK YOU, GARLAND COLVIN/Vinay
--- NOTE | 2017-03-13 18:33 | NUR ---
CALLED TO PT ROOM, HER ILEOSTOMY BAG WAS LEAKING AND NEEDED TO BE CHANGED, LEAKED ONTO BOTTOM DRESSING. CHANGED ILEOSTOMY BAG, NO LEAKS NOTED. CHANGED BOTTOM DRESSING PER ORDER CDI, SIGNED AND DATED
[2017-03-13 19:00] VITALS: BP 163/69
--- NOTE | 2017-03-13 21:44 | NUR ---
HS MEDS GIVEN WITH FRESH ICE WATER, OXY CODONE 10 MG GIVEN FOR C/O PAIN.
[2017-03-14] VITALS: BP 127/47
--- NOTE | 2017-03-14 03:32 | NUR ---
RESTING WITH EYES CLOSED, RESPERATIONS EVEN, NO S/S DISTRESS NOTED.
[2017-03-14 04:00] VITALS: BP 167/63
--- NOTE | 2017-03-14 05:28 | NUR ---
CALL LIGHT IN REACH. WILL CONTINUE WITH PLAN OF CARE.
--- NOTE | 2017-03-14 06:55 | NUR ---
RECEIVED REPORT FROM HOSPITAL FELLOW NURSE, NERI DOWD. PT IN BED, STATES THAT SHE WANTS A CUP OF ICE WATER. STUDENT NURSE WILL PROVIDED PT WITH A CUP OF ICE WATER. PT DENIES ANY OTHER NEEDS AT THIS TIME. PT ASSESSED AT THIS TIME. CALL LIGHT IN REACH, NAD NOTED, WILL CONTINUE TO MONITOR.
[2017-03-14 08:15] VITALS: BP 143/59
--- NOTE | 2017-03-14 11:54 | NUR ---
ADMINISTERD NEURONTIN SCHEDULE. PT IN BED, WAS SLEEPING WHEN I WALKED IN. BUT EASLY AROUNSED. PT DENIES ANY NEEDS AT THIS TIME.CALL LIGHT IN REACH, NAD NOTED, WILL CONTINUE TO MONITOR
--- NOTE | 2017-03-14 11:59 | CN ---
PATIENT NAME:TIMO YANEZ MEDICAL RECORD: [id number] : 60 LOCATION:D. D.2111 ADMIT DATE: 03/05/17 ACCOUNT: [id number] CONSULTING PHYSICIAN: KALEY MORALES MD REFERRING PHYSICIAN: ERIKA MORAN MD DATE OF CONSULTATION: 03/13/2017 Surgical Consultation SURGEON: Kaley Morales MD. REASON FOR CONSULTATION: Perineal wound. HISTORY OF PRESENT ILLNESS: Mrs. Yanez is a 56-year-old female well known to the surgical service here at the hospital. She has a longstanding history of admission. She has had an incredibly complicated surgical past. She had a total abdominal colectomy and ileostomy for ulcerative colitis. She has had innumerable hernias and hernia repairs at this time as well as multiple parastomal hernia repairs, ileostomy repositioning and severe, recurrent, multiple abdominal wall infections and perineal infection requiring multiple debridements. She was readmitted to the hospital this week after a fall. She had a back fracture. She is noted after her kyphoplasty to have severe chronic nonhealing wound to the perineum. She does complain of some pain during dressing changes. PAST MEDICAL HISTORY: Ulcerative colitis, hypertension, depression; sleep apnea, on CPAP; diabetes, anxiety, neuropathy, hypothyroidism. PAST SURGICAL HISTORY: Total abdominal colectomy, ileostomy, appendectomy, multiple incisional hernia repairs, parastomal hernia repair, ileostomy reposition, ostomy revision, tonsillectomy, Infusaport placement. ALLERGIES: LISINOPRIL. HOME MEDICATIONS: Include [place], betamethasone cream, amlodipine, Celexa, losartan, Protonix, gabapentin, Carafate, and VESIcare. SOCIAL HISTORY: She smokes daily. She also smokes marijuana. FAMILY HISTORY: Her parents had neurological disorder, cardiovascular disease and diabetes. Her sibling has neurological disorder and cancer. PHYSICAL EXAMINATION: VITAL SIGNS: Temperature 97.5, heart rate 67, respiratory rate 18, blood pressure 121/47, saturating 90% on room air. PSYCHIATRIC: She is alert and oriented times 3. EYES: Extraocular muscles are intact. EAR, NOSE AND THROAT: She has poor dentition. Mucous membranes dry. CARDIOVASCULAR: Normal sinus rhythm. LUNGS: No wheezes or crackles. Normal inspiratory effort. ABDOMEN: The patient has extensive scarring of the abdominal wall. She is very obese. She has a large incisional hernia. She has a midline lower quadrant stoma with gas and stool in the bag. EXTREMITIES: She has mild peripheral edema bilaterally. NEUROLOGIC: She has a GCS of 15. No focal deficits. CONSULT REPORT [id number] TIMO YANEZ SKIN: The patient has chronically scarred perineum and bottom. She has multiple draining wounds along her perineum as well as combination of bedsores. They do appear to be clean. The wound edges are clean. There are no active signs of deep infection. LABORATORY DATA: White count 6000, hemoglobin 10, hematocrit 30 and platelet count 101. Chemistry: Sodium 144, potassium 4.4, chloride 115, CO2 of 20, BUN 31 and creatinine 1.4. IMPRESSION: A 56-year-old female with chronic perineal nonhealing wounds, recurrent perineal infection as well as recurrent nonhealing decubitus ulcers of perineum. PLAN: I discussed the wounds with the wound care nurse. I have recommended silver alginate or Aquacel dressings as tolerated. The patient will need a rotating bed for decubitus precautions. Dressing changes 1-2 times daily. TRANSINT:[id number] Voice Confirmation ID: [id number] DOCUMENT ID: [id number] KALEY MORALES MD at 1159 CC: [id number] DICTATION DATE: 03/14/17 0952 WRAPPING CHECKER: 03/14/17 1041 ADM IN [facility] [address] [place] [address]
[2017-03-14 12:10] VITALS: BP 156/62
--- NOTE | 2017-03-14 13:30 | NUR ---
ALLA WOUND CARE NURSE AND I PROVIDED DRESSING CHANGE TO PT'S COCCYX AREA APPLIED MAXORB AND COVERED WOUND. ALSO APPLIED MAXORB AG TO OPEN WOULD AT PERINEAL AREA, AND CHANGED DRESSING TO ABD WOUND. PT TOLERATED PROCEDURE WELL. DENIES ANY NEEDS AT THIS TIME.CALL LIGHT IN REACH, NAD NOTED, WILL CONTINUE TO MONITOR.
--- NOTE | 2017-03-14 13:49 | NUR ---
SCD'S ON BILAT.
[2017-03-14 16:00] VITALS: BP 164/60
--- NOTE | 2017-03-14 17:12 | NUR ---
OT NOTE: PT COMPLETED BED MOB SUPINE TO SIT WITH SBA. PT COMPLETED HYGIENE TASK WITH SET UP. PT COMPLETED BUE AROM FOR INCREASED AX TOLERANCE. THANK YOU, GARLAND LOZANO/Vinay
[2017-03-14 20:13] VITALS: BP 152/18
--- NOTE | 2017-03-15 01:09 | NUR ---
CALL LIGHT IN REACH, WILL CONTINUE WITH PLAN OF CARE.
[2017-03-15 02:00] VITALS: BP 130/48
--- NOTE | 2017-03-15 02:39 | NUR ---
RESTING WITH EYES CLOSED, RESPERATIONS EVEN, NO S/S DISTRESS NOTED.
--- NOTE | 2017-03-15 07:00 | NUR ---
PT WAS RECEIVED AWAKE AND ORIENTED X 3 AT THE BEGINNING OF THIS SHIFT. VITAL SIGNS; TEMP. 98.0, PULSE 68, RESP 18, B/P 117/53, 02SAT 99%. PT HAS A LEFT CHEST INFUSAPORT WITH NS GOING AT 50ML'S/HR. WILL BE MONITORING HER THROUGHOUT THIS SHIFT AND ASSISTING PRN WITH ADL'S. PT HAS MANY WOUNDS THAT ARE ALL COVERED.
[2017-03-15 08:14] VITALS: BP 117/53
[2017-03-15 13:14] VITALS: BP 135/58
[2017-03-15] MEDS ORDERED: CHRONULAC30 ML PO (13:44)
[2017-03-15] MEDS ORDERED: OXYCODONE HCL10 MG PO (13:44)
--- NOTE | 2017-03-15 15:29 | NUR ---
PT WILL BE DISCHARGING SOON TO THE [facility]. CNTR. RECEIVING NURSE AT THAT FACILITY WAS PHONED WITH DISCHARGE REPORT. PT. WILL TAKE WITH HER HER PERSONAL BELONGINGS AND DISCHARGE PAPERWORK.
--- NOTE | 2017-03-15 15:53 | NUR ---
PT WAS DISCHARGED VIA WHEELCHAIR WITH [facility] STAFF IN ROUTE TO THAT FACILITY.
== END 2017-03-15 15:55 | DRG 477 ==
LOC: D.M2 16:54
PROVIDERS: Family Medicine; General Practice; Radiology Diagnostic Radiology; ADMIT Family Medicine
PROC: 0QB03ZX Excision of Lumbar Vertebra, Percutaneous Approach, Diagnostic (ICD-10-PCS; 2017-03-11)
PROC: 0QU03JZ Supplement Lumbar Vertebra with Synthetic Substitute, Percutaneous Approach (ICD-10-PCS; 2017-03-11)
PROC: 0QS03ZZ Reposition Lumbar Vertebra, Percutaneous Approach (ICD-10-PCS; principal; 2017-03-11 13:00)
DX: M48.56XA Collapsed vertebra, not elsewhere classified, lumbar region, initial encounter for fracture (principal); G93.40 Encephalopathy, unspecified; L03.311 Cellulitis of abdominal wall; N39.0 Urinary tract infection, site not specified; E11.9 Type 2 diabetes mellitus without complications; I10 Essential (primary) hypertension; F32.9 Major depressive disorder, single episode, unspecified; L89.899 Pressure ulcer of other site, unspecified stage; Z72.0 Tobacco use

== ENCOUNTER 2017-03-23 17:03 | Inpatient (IN) | payer MEDICARE, MEDICAID ==
[~2017-03-23] VITALS: Ht 160 cm; Wt 78.0 kg
--- NOTE | ~2017-03-23 | OP ---
PATIENT NAME: TIMO FUCHS MEDICAL RECORD: [id number] :60 LOCATION:D.MS [id number] ADMISSION DATE:03/23/17 SURGEON: DARREN MORA MD DATE OF OPERATION: 03/29/2017 PREOPERATIVE DIAGNOSES: 1. Hyperparathyroidism. 2. Hypercalcemia secondary to hyperparathyroidism. 3. Ulcerative colitis. 4. Obstructive sleep apnea. 5. Liver cirrhosis. 6. 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 7. Thrombocytopenia. 8. Anemia of chronic liver disease. 9. Yeast urinary tract infection. POSTOPERATIVE DIAGNOSES: 1. Hyperparathyroidism. 2. Hypercalcemia secondary to hyperparathyroidism. 3. Ulcerative colitis. 4. Obstructive sleep apnea. 5. Liver cirrhosis. 6. 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 7. Thrombocytopenia. 8. Anemia of chronic liver disease. 9. Yeast urinary tract infection. PROCEDURE: Right parathyroidectomy. SURGEON: Darren Mora MD. REPORT OF PROCEDURE: The patient's neck was prepped and draped in sterile fashion. A transverse incision was made overlying the sternal notch. Electrocautery was used to dissect through the subcutaneous tissues and platysma. We then opened up the median raphe and dissected into the right side of the patient's neck. The thyroid was immediately encountered. We were able to mobilize superiorly and any of the vessels, which were encountered were treated with clips proximally and distally and ligation. We were able to mobilize the right lobe of the thyroid medially and eventually saw a large gland in the mid portion of the thyroid, which was consistent with what was found on recent parathyroid scan. This parathyroid gland was dissected free and was noted to be extremely large and with multiple arms to it. It easily came loose from the surrounding tissues. This was sent off for frozen specimen and pathology reported that this was a parathyroid gland consistent with an adenoma. We inspected the right side of the neck and saw no sign of any further parathyroid gland. The area was inspected thoroughly and care was taken to make sure to stop any bleeding, which was present. We then packed the wound with thrombin-soaked Gelfoam and closed the midline raphae with a running 3-0 Vicryl. The Pascale's and the platysma were closed with interrupted 3-0 Vicryls and the skin was closed with running subcutaneous 5-0 Monocryl. We infused with a total of 10 mL 0.25% Marcaine into the surrounding tissues and the wound was dressed appropriately. A 10-St Lucian round William drain had been inserted into the left side of the neck and rested in the right side of the neck at the dissection site. This has been sutured into place with a 4-0 nylon. OPERATIVE REPORT [id number] TIMO FUCHS COMPLICATIONS: None. CONDITION: Stable. ANESTHESIA: General endotracheal and local. BLOOD LOSS: 20 mL. TRANSINT:[id number] Voice Confirmation ID: [id number] DOCUMENT ID: [id number] DARREN MORA MD CC: ERIKA MORAN MD [id number] DICTATION DATE: 03/29/17 122 LABEL CODER: 03/29/172108 ADM IN [facility] [address] [place] [address]
[2017-03-23 17:40] LABS: BASOPHILS 0 % (0-2); EOSINOPHILS 0.6 % (0-7); HEMATOCRIT 32.1 % (36.0-48.0); HEMOGLOBIN 10.6 g/dL (12-16); IMMATURE GRANULOCYTES 0.4 % (0-5); LYMPHOCYTES 8.9 % (15-50); MCH 29.7 pg (26.0-34.0); MCV 89.9 fL (80.0-100.0); MEAN PLATELET VOLUME 10.5 fL (7.4-10.4); MONOCYTES 8.6 % (2-11); NEUTROPHILS 81.5 % (40-80); PLATELET COUNT 104 10x3/uL (130-400); RBC 3.57 10x6/uL (4.00-5.40); RDW 16.4 % (11.5-14.5)
[2017-03-23 17:44] LABS: ALBUMIN 2.3 g/dL (3.4-5.0); ANION GAP 16.6 mmol/L (8-16); BILIRUBIN - TOTAL 1.18 mg/dL (0.2-1.3); CARBON DIOXIDE 13.9 mmol/L (21.0-32.0); CREATININE - SERUM 3.4 mg/dL (0.6-1.3); POTASSIUM - SERUM 5.5 mmol/L (3.5-5.1); PROTEIN - SERUM 8.4 g/dL (6.4-8.2)
[2017-03-23 17:45] LABS: CALCIUM 12.7 mg/dL (8.5-10.1)
[2017-03-23 18:50] LABS: APPEARANCE CLOUDY (CLEAR); BILIRUBIN NEGATIVE (NEGATIVE); COLOR YELLOW (YELLOW); GLUCOSE NEGATIVE (NEGATIVE); KETONE NEGATIVE (NEGATIVE); LEUKOCYTE ESTERASE TRACE (NEGATIVE); NITRITE NEGATIVE (NEGATIVE); PROTEIN TRACE mg/dL (NEGATIVE); UROBILINOGEN NORMAL (NORMAL)
[2017-03-23 18:54] LABS: AMORPHOUS SEDIMENT <1+ /lpf (NONE SEEN); BACTERIA FEW /hpf (NONE SEEN); EPITHELIAL CELLS 0-5 /hpf (0-5); RED CELLS - URINE 0-5 /hpf (0-5); WHITE CELLS - URINE 0-5 /hpf (0-5); YEAST <1+ /hpf (NONE SEEN)
[2017-03-23 18:55] LABS: UDS - AMPHET NEGATIVE QUAL (NEGATIVE); UDS - BARB NEGATIVE QUAL (NEGATIVE); UDS - BENZO NEGATIVE QUAL (NEGATIVE); UDS - COCAINE NEGATIVE QUAL (NEGATIVE); UDS - METH NEGATIVE QUAL (NEGATIVE); UDS - OPIATE POSITIVE QUAL (NEGATIVE); UDS - PCP NEGATIVE QUAL (NEGATIVE); UDS - THC NEGATIVE QUAL (NEGATIVE)
[2017-03-24] VITALS (32 sets, daily range): BP systolic 78–137; BP diastolic 35–116; BMI 31.9
--- NOTE | 2017-03-24 01:00 | NUR ---
RECEIVED PT FROM ER WITH HOSPITAL STAFF. CHANGED OVER TO ICU BED. CONNECTED TO ICU MONITORING.
--- NOTE | 2017-03-24 01:20 | NUR ---
DRESSING TO SCARUM/COCCYX AND RT BUTTOCKS REMOVED AND WOUNDS ASSESSED. LLQ AREA COLOSTOMY BAG EMPTIES WITH DARK, BROWN LIQUID AND SOME SEMI-SOLID BM EMPTIED. STOMA, BEEFY-RED IN COLOR. WOUND VAC APPEARING TAPE AROUND STOMA APPLIANCE NOTED. MIDLINE ABD AREA OLD SCAR INDENTION NOTED. RLQ AREA WITH A SKIN EXCORIATION NOTED, DRSG TAKEN OFF. ALSO TO RLQ VISIBALE PERISTALISIS THRU THIN SKIN NOTED. RT GROIN ULCERATIONS X2. RT BUTTOCKS AREA WITH TUNNELING WOUND APPROX 3-4CM DEEP. SEE E.R. DOC RECORDS OF WOUNDS. WOUND FROM BUTTOCKS TO TAILBONE AREA. REDRESSED WITH SALINE SOAKED KERLIX, COVERED WITH DRY 4X4 AND MEDIPORE TAPE PER MILES THOMPSON RN TO MIDLINE BUTTOCKS AND RT LOWER BUTTOCKS. GOMEZ CATHETER 16 KAZAKH INSERTED USING STERILE TECHNIQUE. CLOUDY, CONCENTRATED, ORANGISH/YELLOW COLORED URINE NOTED IN URIMETER.
--- NOTE | 2017-03-24 02:00 | NUR ---
DAUGHTER IN AT BEDSIDE. UPDATE GIVEN. INFORMED OF PLAN OF CARE. EMERGENCY CONTACT INFO AND PASSWORD OBTAINED. DAUGHTER BROUGHT IN CPAP OF HERS FROM THE SNF.
--- NOTE | 2017-03-24 03:20 | NUR ---
PT ASSESSED BY CHARGE NURSE AND PLANS TO MOVE TO THE OTHER ICU.
--- NOTE | 2017-03-24 04:35 | NUR ---
TAKEN OVER BY BED TO ICU 230 BY TWO NURSES.
--- NOTE | 2017-03-24 05:00 | NUR ---
PATIENT TRANSFERRED FROM CVICU TO ICU, PLACED ON MONITOR, VSS. RR EVEN AND NON-LABORED. WILL MONITOR.
[2017-03-24 05:49] LABS: BASOPHILS 0 % (0-2); EOSINOPHILS 0.9 % (0-7); HEMOGLOBIN 9.6 g/dL (12-16); IMMATURE GRANULOCYTES 0.3 % (0-5); LYMPHOCYTES 9.9 % (15-50); MCH 29.5 pg (26.0-34.0); MCHC 33.1 g/dL (31.0-37.0); MCV 89.2 fL (80.0-100.0); MEAN PLATELET VOLUME 9.9 fL (7.4-10.4); MONOCYTES 9.7 % (2-11); NEUTROPHILS 79.2 % (40-80); PLATELET COUNT 88 10x3/uL (130-400); RBC 3.25 10x6/uL (4.00-5.40); RDW 16.3 % (11.5-14.5); WBC 6.6 10x3/uL (4.8-10.8)
[2017-03-24 06:09] LABS: ALBUMIN 2.2 g/dL (3.4-5.0); BILIRUBIN - TOTAL 1.24 mg/dL (0.2-1.3); CARBON DIOXIDE 15.9 mmol/L (21.0-32.0); CREATININE - SERUM 3.5 mg/dL (0.6-1.3); PROTEIN - SERUM 7.3 g/dL (6.4-8.2)
[2017-03-24 06:12] LABS: ANION GAP 16.4 mmol/L (8-16); POTASSIUM - SERUM 4.3 mmol/L (3.5-5.1)
[2017-03-24 06:15] LABS: CALCIUM 12.1 mg/dL (8.5-10.1)
--- NOTE | 2017-03-24 06:36 | NUR ---
DR ZIEGLER PAGED, ORDERS RECEIVED.
--- NOTE | 2017-03-24 06:55 | HP ---
PATIENT: TIMO FUCHS MEDICAL RECORD: [id number] ACCOUNT: [id number] LOCATION:[facility] D.[id number] : 60 ADMISSION DATE: 03/23/17 HISTORY AND PHYSICAL EXAMINATION ADMITTING PHYSICIAN: Dr. Rashad Suresh. REASON FOR ADMISSION: Altered mental status. HISTORY OF PRESENT ILLNESS: The patient is a 56-year-old female with complicated past medical history including hidradenitis suppurativa and ulcerative colitis. She was discharged from this hospital on March 15 after admission for lumbar 2 compression fracture, post-kyphoplasty. She is also diagnosed with hepatitis C and developed some hepatic encephalopathy. At discharge, she was placed on lactulose which apparently was discontinued at the correction. She has a long history of hypercalcemia and recent PTH levels over 500. A parathyroid scan was ordered and those results are pending. Nonetheless, she became more confused at the correction and was transferred in today to the ED. There has been no recent fever or cough. The patient does answer questions, but her mentation has certainly slowed. She denies any pain at this time. PAST MEDICAL HISTORY: Hospitalized 03/05 through 03/15 for L1 compression fracture and peristomal cellulitis, history of ulcerative colitis, type 2 diabetes mellitus, history of ventral hernias with multiple surgeries, depression, hyperlipidemia, hypertension, hidradenitis suppurativa, familial hypercalcemia, adult sleep apnea on CPAP, iron deficiency anemia, hepatitis C non-alcoholic type, history of peripheral neuropathy. PAST SURGICAL HISTORY: She has had a colectomy and ileostomy due to her ulcerative colitis and multiple ventral hernia repairs and ostomy revisions. ALLERGIES: SHABNAM INHIBITORS. SOCIAL HISTORY: She is , on disability, has been in a correction recently for wound care. She is a daily smoker and denies alcohol use. FAMILY HISTORY: Positive for diabetes, sister from cancer of unknown type. Plus history of cardiovascular disease in her parents. REVIEW OF SYSTEMS: GENERAL: No recent fever, has been confused. HEENT: No recent visual change. RESPIRATORY: No cough or sputum production. CARDIAC: No chest pain, edema or claudication. GASTROINTESTINAL: Denies nausea or vomiting. She has a functioning colostomy. MUSCULOSKELETAL: Has arthralgias in her knees and hips. NEUROLOGICAL: No history of seizures. PSYCHIATRIC: Admits to depressed mood and confusion currently. INTEGUMENT: Chronic history of recurrent hidradenitis, skin infections. CURRENT MEDICATIONS: Citalopram 40 mg a day, losartan 100 mg a day, Protonix 40 mg b.i.d., ergocalciferol 1.25 ____ orally every week, Neurontin 200 mg p.o. b.i.d., VESIcare 10 mg daily, Neurontin 600 p.o. at bedtime, oxycodone IR 10 mg every 4 hours as needed for pain, lactulose 30 cc p.o. b.i.d., which has been HISTORY AND PHYSICAL [id number] TIMO FUCHS discontinued by the correction for unknown reasons. PHYSICAL EXAMINATION: VITAL SIGNS: Temperature 97.6 Fahrenheit orally, heart rate 86 regular, blood pressure was 160/70, respirations of 16, and O2 sat 97% on room air. GENERAL: The patient is confused, but will respond. She is in no acute distress. HEENT: Normocephalic. Eyes are clear. Mucous membranes are dry. NECK: Supple. CHEST: Clear. HEART: Regular without murmur. ABDOMEN: Soft, shows multiple healed scars, mid abdominal colostomy, which is full of formed stool. She has wounds on her right lower quadrant, axilla, and inner thighs. EXTREMITIES: She has good mobility of both knees without crepitance or effusion. She has no peripheral edema. NEUROLOGIC: The patient is disoriented to person, place and time. She has no localizing neurological deficit. She will respond to questioning. INTEGUMENT: As above. LABORATORY DATA: Shows white count of 8000, H&H 10.6 and 32.1, platelet count 104,000, 81 neutrophils, and 9 lymphocytes. Sed rate is 79 mm per hour. Potassium was 5.5. BUN and creatinine are 16 and 3.4, sodium of 132. Glucose of 150, A1c of 5, calcium of 12.7, phosphorus of 2.7, and magnesium of 1.9. Iron low at 22. TIBC of 231. Liver functions normal except for alkaline phosphatase of 178 and ammonia of 43. Creatinine on last exam was possibly 1.8. ABGs: With a pH of 7.25, pO2 of 93, and pCO2 of 28.6. Lactic acid of 0.59. INR is elevated at 1.39 and PTT is normal at 31. Previous ALCIRA screen from 2016 was positive, double stranded, antismooth muscle antibody is elevated as well. Hepatitis C antibody is positive at greater than 11.0. Hepatitis C quantitative RNA is 308,050, this was on June 09. Recent parathyroid scan: suspicious for parathyroid adenoma in the medial right lobe. ASSESSMENT: 1. Metabolic acidosis. 2. Lydgz-sp-hhgzomy renal insufficiency, possible cause of acidosis. 3. Hyperparathyroidism due to parathyroid adenoma. 4. Hidradenitis suppurativa. 5. Hepatic encephalopathy due to hepatitis C. 6. Anemia of chronic disease. 7. Thrombocytopenia, chronic. 8. Hyperkalemia. PLAN: The patient will be started on bicarbonate drip and move to the ICU with renal consult. Further workup pending clinical course. TRANSINT:[id number] Voice Confirmation ID: [id number] DOCUMENT ID: [id number] HISTORY AND PHYSICAL [id number] TIMO FUCHS TIMOTHY MD at 0655 CC: [id number] DICTATION DATE: 03/23/172231 CONSULTING MARINE ENGINEER: 03/24/17 0126 ADM IN [facility] [address] [place] [address]
--- NOTE | 2017-03-24 07:59 | NUR ---
LYING IN BED AT THIS TIME. NOTED PT IS CONFUSED TO SITUATION, TIME, AND LOCATION. REORIENTATION PROVIDED. AT THIS TIME COLOSTOMY BAG EMPTIED, 300ML LIQUID AND SEMI FORMED STOOL NOTED, BROWN IN COLOR. NO ACUTE DISTRESS NOTED. WILL CONTINUE PLAN OF CARE.
--- NOTE | 2017-03-24 10:00 | NUR ---
NOTED GI CONSULT WITH DR MORSE, DR TRAMMELL HOSPITALITY AIDE. PAGED DR TRAMMELL AT THIS TIME TO NOTIFY OF CONSULT WELL TO NOTIFY OF CRITICAL AMMONIA LEVEL OF 45. WAITING FOR CALLBACK.
--- NOTE | 2017-03-24 10:12 | NUR ---
DR TRAMMELL NOTIFIED OF CONSULT AND IS NO UNIT AT THIS TIME.
--- NOTE | 2017-03-24 11:03 | NUR ---
RECIEVED CALL FROM PT DAUGHTER WITH CALL IN CODE. UPDATE GIVEN. NO ACUTE DISTRESS NOTED. WILL CONTINUE PLAN OF CARE.
[2017-03-24 13:20] LABS: INR 1.35 (0.85-1.17); PROTIME 16.5 SECONDS (11.6-15.0)
[2017-03-24 13:44] LABS: ALKALINE PHOSPHATASE 176 U/L (46-116); ALT (SGPT) 18 U/L (10-68); AMYLASE - SERUM 79 U/L (25-115); BILIRUBIN - TOTAL 1.09 mg/dL (0.2-1.3); CALC OSMOLALITY 291 mosm/kg (275-300); CHLORIDE - SERUM 108 mmol/L (98-107); GLUCOSE 107 mg/dL (74-106); POTASSIUM - SERUM 4.6 mmol/L (3.5-5.1); PROTEIN - SERUM 7.3 g/dL (6.4-8.2); SODIUM 138 mmol/L (136-145); UREA NITROGEN 58 mg/dL (7-18)
[2017-03-24 13:45] LABS: CALCIUM 7.2 mg/dL (8.5-10.1); CARBON DIOXIDE 20.3 mmol/L (21.0-32.0); CREATININE - SERUM 0.5 mg/dL (0.6-1.3); eGFR NON AFRICAN AMERICAN > 90 mL/min (90-120)
--- NOTE | 2017-03-24 15:44 | NUR ---
NOTED CONSULT FOR ANESTHEDIA, SPOKE WITH DR MOSCOSO WHO STATED TO CANCEL ORDER. ANESTHESIA CONSULT IS NOT REQUIRED. WILL CANCEL ORDER.
--- NOTE | 2017-03-24 17:05 | NUR ---
COLOSTOMY BAG NOTED LEAKING. BAG EMPTIED AND THEN REPLACED COLOSTOMY DRESSING SET. ALSO AT THIS TIME TOTAL BED CHANGE PERFORMED. NO ACUTE DISTRESS NOTED. WILL CONTINUE PLAN OF CARE.
--- NOTE | 2017-03-24 19:42 | NUR ---
REPORT RECEIVED. SHIFT ASSESSMENT COMPLETE. SEE FLOWSHEET FOR FINDINGS. PT ON ROOM AIR, NO DISTRESS NOTED. OPENS EYES WHEN NAME CALLED OUT, BUT EASILY FALLS BACK TO SLEEP.
--- NOTE | 2017-03-24 23:30 | NUR ---
REPORT RECEIVED AND CARE ASSUMED. SHIFT REASSESSMENT COMPLETED PER FLOW SHEET.
[2017-03-25] VITALS (30 sets, daily range): BP systolic 75–124; BP diastolic 24–111; Ht 160 cm; Wt 78.0 kg
[2017-03-25 03:52] LABS: BASOPHILS 0.2 % (0-2); EOSINOPHILS 1.3 % (0-7); IMMATURE GRANULOCYTES 0.2 % (0-5); LYMPHOCYTES 9.4 % (15-50); MCH 29.9 pg (26.0-34.0); MCHC 33.3 g/dL (31.0-37.0); MCV 89.7 fL (80.0-100.0); MEAN PLATELET VOLUME 9.6 fL (7.4-10.4); MONOCYTES 10.7 % (2-11); NEUTROPHILS 78.2 % (40-80); PLATELET COUNT 79 10x3/uL (130-400); RBC 3.01 10x6/uL (4.00-5.40); RDW 16.2 % (11.5-14.5)
[2017-03-25 03:56] LABS: INR 1.34 (0.85-1.17); PROTIME 16.5 SECONDS (11.6-15.0); WBC 4.6 10x3/uL (4.8-10.8)
[2017-03-25 04:28] LABS: BILIRUBIN - TOTAL 1.13 mg/dL (0.2-1.3); CARBON DIOXIDE 24.7 mmol/L (21.0-32.0); PRE-ALBUMIN 12.6 mg/dL (18.0-35.7); PROTEIN - SERUM 6.9 g/dL (6.4-8.2)
[2017-03-25 04:47] LABS: ALBUMIN 2.1 g/dL (3.4-5.0); ANION GAP 12.1 mmol/L (8-16); CALCIUM 11.3 mg/dL (8.5-10.1); CREATININE - SERUM 3.8 mg/dL (0.6-1.3); POTASSIUM - SERUM 3.8 mmol/L (3.5-5.1)
--- NOTE | 2017-03-25 07:00 | NUR ---
PT AWAKE AND ALERT. DISORIENTED TO PLACE TIME AND SITUATION. ABLE TO OBEY COMMANDS BUT REMAINS CONFUSED. BP LOW AT THIS TIME. LEFT INFUSAPORT ACCESSED WITH WHEELER NEEDLE. BOLUS GIVEN PER DR ZIEGLER ORDER. WILL CONTINUE TO MONITOR
--- NOTE | 2017-03-25 09:00 | NUR ---
PT REMAINS CONFUSED BUT NOW KNOWS WHERE SHE IS. ABLE TO EAT WITH MINIMAL ASSISTANCE.
--- NOTE | 2017-03-25 11:00 | NUR ---
PT BP BEGINNING TO STABILIZE. NEW PIV SITED IN RIGHT FA. FLUIDS INFUSING AND BP STABLE
--- NOTE | 2017-03-25 11:10 | NUR ---
Wound care consult: Sky familiar with this pt from last admission. She has numerous open wounds from axilla, inner thighs, gluteal cleft, gluteal folds and perineum. All are chronic nonhealing wounds. She has multiple scars on abdomen and torso. Colostomy LLQ. Sacrum/coccyx/gluteal cleft/perineal area is open with multiple Stage 2 pressure injuries. Entire area is approx 19cm x 3cm x 1cm. Right gluteal fold has two Stage 3 Pressure Injuries: #1 0.5cm x 1cm x 1.5cm #2 2cm x 4cm x 3cm x 3cm @ 10 oclock Left gluteal fold has Stage 3 pressure injury 1cm x 1.5cm x 1cm Numerous other chronic open wounds are noted, but don't appear in pressure sensitive areas. Recommend daily dressing changes using Maxorb AG to all open wounds. Wound care will continue to monitor.
--- NOTE | 2017-03-25 13:00 | NUR ---
PT REMAINS CONFUSED. DAUGHTER CALLED AND UPDATE GIVEN. ABLE TO EAT LUNCH BUT THROWING DRINKS OFF TRAY. WILL CONTINUE TO REORIENT PT NEEDED. VITAL SIGNS STABLE
--- NOTE | 2017-03-25 14:56 | NUR ---
Wound Care: Changed ostomy appliance. Cleansed skin surrounding stoma and patted dry. Applied Cavilon skin barrier. Stoma is red and beefy and measured 1-5/8". Cut wafer accordingly and placed over stoma. Pt tolerated well.
--- NOTE | 2017-03-25 15:30 | NUR ---
PT NOW IN BILAT WRIST RESTRAINTS DUE TO PULLING MULTIPLE IVS OUT. RESTRAINTS EXPLAINED TO PT AND FAMILY. WILL CONTINUE TO REORIENT NEEDED.
[2017-03-25 15:52] LABS: ANION GAP 11.4 mmol/L (8-16); CALCIUM 10.1 mg/dL (8.5-10.1); CARBON DIOXIDE 24.7 mmol/L (21.0-32.0); POTASSIUM - SERUM 3.1 mmol/L (3.5-5.1)
--- NOTE | 2017-03-25 17:00 | NUR ---
PT LYING DOWN AND STABLE AT THIS TIME. REMAINS RESTRAINED. NS INFUSING TO LEFT CHEST INFUSAPORT. WILL CONTINUE TO MONTIOR
--- NOTE | 2017-03-25 19:45 | NUR ---
ASSESSMENT COMPLETE. S1S2. RR CLEAR BILATERALLY IN UPPER LOBES; DIMINISHED IN LOWER LOBES. PT CONFUSED PULLING AT LINES AND DISROBING. PT ATTEMPTING TO GET OUT OF RESTRAINTS AND REFUSING TO REMAIN SAFE. RADIAL AND PEDAL PULSES PALPATED. BUTTOCKS/COCCYX/SACRAL PRESSURE ULCERS; TUNNELING NOTED. DRESSING INTACT. PERRLA.
--- NOTE | 2017-03-25 19:45 | NUR ---
ASSESSMENT COMPLETE. S1S2. RR CLEAR BILATERALLY IN UPPER LOBES; DIMINISHED BILATERALLY IN LOWER LOBES. PT CONFUSED. PRESSURES ULCERS TO BUTTOCK/COCCYX AND GROIN. RT GROIN CVL. PT BEDFAST. RADIAL AND PEDAL PULSES PALPATED. PT IN RESTRAINTS. PULLS AT LINES. REMOVES GOWN AND CARDIAC LEADS. WILL CONTINUE TO MONITOR.
--- NOTE | 2017-03-25 21:30 | NUR ---
NO FAMILY AT BEDSIDE.
--- NOTE | 2017-03-25 23:10 | NUR ---
REASSESSMENT COMPLETE. NO CHANGES FROM PREVIOUS ASSESSMENT. VSS. NO DISTRESS NOTED. PT CONTINUES TO PULL OF WIRES AND CONTINUES TO GET OUT OF RESTRAINTS.
[2017-03-26] VITALS (15 sets, daily range): BP systolic 103–126; BP diastolic 43–64
--- NOTE | 2017-03-26 00:40 | NUR ---
PT PULLED OFF ILEOSTOMY BAG. FECAL MATTER ALL IN BED. PT RECEIVED A COMPLETE BED BATH. COMPLETE LINEN CHANGE. REPLACED ILEOSTOMY BAG WITH NEW.
--- NOTE | 2017-03-26 03:06 | NUR ---
REASSESSMENT COMPLETE. NO CHANGES FROM PREVIOUS ASSESSMENT. VSS. NO DISTRESS NOTED. PT CONFUSED PULLING AT LINES. TEARFUL; ANXIOUS.
[2017-03-26 05:04] LABS: HEMATOCRIT 24.6 % (36.0-48.0); HEMOGLOBIN 8.2 g/dL (12-16); MCH 29.7 pg (26.0-34.0); MCHC 33.3 g/dL (31.0-37.0); MCV 89.1 fL (80.0-100.0); MEAN PLATELET VOLUME 9.5 fL (7.4-10.4); RBC 2.76 10x6/uL (4.00-5.40); RDW 15.8 % (11.5-14.5)
[2017-03-26 05:08] LABS: PLATELET COUNT 53 10x3/uL (130-400); WBC 2.9 10x3/uL (4.8-10.8)
[2017-03-26 05:13] LABS: INR 1.47 (0.85-1.17); PROTIME 17.7 SECONDS (11.6-15.0)
[2017-03-26 05:23] LABS: ALBUMIN 1.8 g/dL (3.4-5.0); ANION GAP 9.1 mmol/L (8-16); BILIRUBIN - TOTAL 0.96 mg/dL (0.2-1.3); CALCIUM 10.9 mg/dL (8.5-10.1); CREATININE - SERUM 2.4 mg/dL (0.6-1.3); PHOSPHOROUS 3.1 mg/dL (2.5-4.9); POTASSIUM - SERUM 3.1 mmol/L (3.5-5.1); PROTEIN - SERUM 6.5 g/dL (6.4-8.2)
[2017-03-26 05:26] LABS: LYMPHOCYTES 12 % (15-50); MONOCYTES 6 % (2-11); NEUTROPHILS 74 % (40-80); PLATELET ESTIMATE DECREASED; ROULEAUX 2+
--- NOTE | 2017-03-26 07:00 | NUR ---
PT REMAINS CONFUSED AND DISORIENTED. FOLLOWS COMMANDS BUT IS INCONSISTENT. DENIES PAIN AT THIS TIME. ASSESSMENT DOCUMENTED ON FLOWSHEET. PT REMAINS IN BILAT WRIST RESTRAINTS AT THIS TIME DUE TO PULLING AT LINES/TUBES. WILL CONTINUE TO MONITOR CLOSELY. VITAL SIGNS STABLE
--- NOTE | 2017-03-26 09:00 | NUR ---
PT RESTING AT THIS TIME. VITAL SIGNS STABLE. WILL CONTINUE TO MONITOR FOR ACUTE CHANGES
--- NOTE | 2017-03-26 09:12 | NUR ---
PATIENT CAME FROM THE [facility]. ACCORDING TO THE NURSE HER DAUGHTER HAS EXPRESSED TO NURSING THAT SHE WOULD LIKE TO MOVE HER MOTHER TO A DIFFERENT FACILITY AT DISCHARGE. NURSING STATES THE DAUGHTER PLANS TO VISIT LATER TODAY AND SPEAK WITH CM.
--- NOTE | 2017-03-26 11:00 | NUR ---
PT FAMILY IN WAITING ROOM WANTING TO SEE PT. UPDATE GIVEN AND VISITING HOURS EXPLAINED TO FAMILY MEMBER. PT STABLE AT THIS TIME
--- NOTE | 2017-03-26 13:00 | NUR ---
PT ATE LUNCH WITH MINIMAL ASSISTANCE. NO CHANGES FROM PREVIOUS NOTE. VITAL SIGNS STABLE
--- NOTE | 2017-03-26 15:50 | NUR ---
REMOVED RESTRAINTS BECAUSE PT MENTAL STATUS IS IMPROVING AND SHE HAS NOT BEEN ATTEMPTING TO PULL LINES/TUBES. WILL CONTINUE TO MONITOR
--- NOTE | 2017-03-26 17:20 | NUR ---
PT TRANSFER TO MED/SURG. REPORT CALLED TO WILLIAM IGLESIAS. BELONGINGS AT BEDSIDE. PT STABLE.
--- NOTE | 2017-03-26 17:25 | NUR ---
RECEIVED TO ROOM 2207 AT THIS TIME FROM ICU VIA BED. CALL LIGHT IN REACH, BED ALARM ON, AND PROVIDED PATIENT WITH FRESH ICE WATER.
--- NOTE | 2017-03-26 19:40 | NUR ---
RECIEVED SHIFT REPORT. PT IS LYING IN BED. ALERT AND ORIENTED AND ABLE TO VERBALIZE NEEDS. IV IS PATENT AND FLUIDS ARE RUNNING PER ORDER. PT REQUIRES ASSISTANCE TURNING IN BED FOR COMFORT AND SKIN CARE. GOMEZ IS DRAINING URINE BY GRAVITY. ILEOSTOMY INTACT WITH LIQUID BROWN DRAINAGE. PT STATES PAIN IS 5/10. SCD'S ON. NO NEEDS ARE VERBALIZED AT THIS TIME. WILL CONTINUE TO MONITOR. SIDE RAILS ARE UP X 2. BED IS IN LOWEST POSITION. BED ALARM IS ON FOR SAFETY. CALL LIGHT IS WITHIN REACH.
--- NOTE | 2017-03-26 20:38 | NUR ---
SHIFT ASSESSMENT COMPLETED. NIGHT MEDS GIVEN WITH NO PROBLEMS. MEPILEXES AND ABD PAD APPLIED TO PT BUTTOCK/COCCYX DUE TO PRESSURE ULCER. DR TRAMMELL IN ROOM AT THIS TIME. NO NEEDS ARE VOICED. WILL MONITOR. SIDE RAILS X 2. BED LOW. BED ALARM ON. CALL LIGHT IN REACH.
[2017-03-26 20:42] LABS: ANION GAP 10.6 mmol/L (8-16); CALCIUM 10.4 mg/dL (8.5-10.1)
[2017-03-26 20:44] LABS: POTASSIUM - SERUM 3.6 mmol/L (3.5-5.1)
[2017-03-27 04:00] VITALS: BP 118/66
[2017-03-27 06:15] LABS: BASOPHILS 0 % (0-2); EOSINOPHILS 2.1 % (0-7); HEMATOCRIT 23.3 % (36.0-48.0); HEMOGLOBIN 7.8 g/dL (12-16); IMMATURE GRANULOCYTES 0.4 % (0-5); LYMPHOCYTES 17.4 % (15-50); MCH 30.1 pg (26.0-34.0); MCHC 33.5 g/dL (31.0-37.0); MEAN PLATELET VOLUME 10.3 fL (7.4-10.4); MONOCYTES 7.9 % (2-11); NEUTROPHILS 72.2 % (40-80); PLATELET COUNT 51 10x3/uL (130-400); RBC 2.59 10x6/uL (4.00-5.40); RDW 16.2 % (11.5-14.5); WBC 2.4 10x3/uL (4.8-10.8)
[2017-03-27 06:48] LABS: ANION GAP 9.8 mmol/L (8-16); CALCIUM 10.6 mg/dL (8.5-10.1); CARBON DIOXIDE 23.7 mmol/L (21.0-32.0); CREATININE - SERUM 1.9 mg/dL (0.6-1.3); PHOSPHOROUS 2.9 mg/dL (2.5-4.9); POTASSIUM - SERUM 3.5 mmol/L (3.5-5.1)
--- NOTE | 2017-03-27 07:35 | NUR ---
SLEEPING, BREATHING EVEN UNLABORED, CALL LIGHT IN REACH
[2017-03-27 08:57] VITALS: BP 115/41
--- NOTE | 2017-03-27 10:30 | NUR ---
OSTOMY BAG CHANGED, BOTTOM ASSESSED, PT STATES THE ABNORMAL APPEARANCE OF JELANI AREA IS FROM SKIN GRAFTS, DENIES NEEDS, BED LOWEST POSITION, CALL LIGHT IN REACH, WILL CONTINUE TO MONITOR
[2017-03-27 12:00] VITALS: BP 133/57
--- NOTE | 2017-03-27 13:02 | NUR ---
NUTRITION MONTIORING & EVAL CHART REVIEWED, PT VISIT. TOLERATING RENAL DIET. 50% INTAKE RECENT MEALS. WILL CONTINUE TO PROVIDE DIET, MONITOR PO INTAKE. RD FOLLOWING
[2017-03-27 17:12] VITALS: BP 129/46
--- NOTE | 2017-03-27 19:40 | NUR ---
LEFT PORT DRESSING CHANGED IN STERILE FASHION AT THIS TIME. PT REFUSED TO HAVE WHEELER NEEDLE CHANGED. TOLERATED WITHOUT COMPLAINTS. CALL LIGHT IN REACH, WILL CONTINUE WITH PLAN OF CARE.
[2017-03-27 20:02] VITALS: BP 138/49
--- NOTE | 2017-03-27 22:01 | NUR ---
REC'D PATIENT LYING IN BED. ALERT AND ORIENTED X4. NO DISTRESS NOTED STATED PAIN WAS AT A 3/10. DENIED FURTHER NEEDS AT THIS TIME. INSTRUCTED TO CALLL IF NEEDED ANYTHING. BED LOW, LOCKED, CALL LIGHT IN REACH.
--- NOTE | 2017-03-27 22:44 | NUR ---
PATIENT SLEEPING ON LEFT SIDE WITH CPAP ON. HOB 40 DEGREES. 0 S/S OF DISTRESS. GOMEZ SECURED WITH STATLOCK AND DRAINING TO GRAVITY. SRX2. BED LOW. CALL LIGHT WITHIN REACH.
[2017-03-27 23:48] VITALS: BP 129/45
--- NOTE | 2017-03-28 00:37 | NUR ---
PATIENT IS ASLEEP. NO DISTRESS NOTED. WEARING HER C-PAP/BI-PAP. WILL CONT TO MONITOR. BED LOW, LOCKED, CALL LIGHT IN REACH.
--- NOTE | 2017-03-28 03:06 | NUR ---
CHANGED PATIENT ILLEOSOMY. WAS LEAKING AROUND THE STOMA. DID A COMPLETE BED CHANGE ON HER. PT TOLERATED WELL. NO DISTRESS NOTED. DENIED FURTHER NEEDS. INSTRUCTED TO CALL IF NEEDED ANYTHING. BED LOW, LOCKED, CALL LIGHT IN REACH.
[2017-03-28 04:00] VITALS: BP 109/45
[2017-03-28 05:31] LABS: BASOPHILS 0 % (0-2); EOSINOPHILS 3.1 % (0-7); HEMATOCRIT 23.6 % (36.0-48.0); HEMOGLOBIN 7.8 g/dL (12-16); LYMPHOCYTES 20.3 % (15-50); MCH 29.8 pg (26.0-34.0); MCHC 33.1 g/dL (31.0-37.0); MCV 90.1 fL (80.0-100.0); MEAN PLATELET VOLUME 10.5 fL (7.4-10.4); MONOCYTES 9.3 % (2-11); NEUTROPHILS 67.3 % (40-80); PLATELET COUNT 56 10x3/uL (130-400); RBC 2.62 10x6/uL (4.00-5.40); RDW 16.2 % (11.5-14.5); WBC 2.3 10x3/uL (4.8-10.8)
[2017-03-28 06:11] LABS: ALBUMIN 1.7 g/dL (3.4-5.0); BILIRUBIN - TOTAL 0.51 mg/dL (0.2-1.3); CALCIUM 10.8 mg/dL (8.5-10.1); CARBON DIOXIDE 24.2 mmol/L (21.0-32.0); CREATININE - SERUM 1.8 mg/dL (0.6-1.3); PHOSPHOROUS 3.2 mg/dL (2.5-4.9); POTASSIUM - SERUM 3.2 mmol/L (3.5-5.1); PROTEIN - SERUM 6.1 g/dL (6.4-8.2)
[2017-03-28 08:21] VITALS: BP 117/61
--- NOTE | 2017-03-28 09:16 | NUR ---
Patient Name: TIMO FUCHS Admission Status: ER Accout number: [id number] Admission Date: 03-23-2017 : 1960 Admission Diagnosis:ALTERED MENTAL STATUS, UNSPECIFIED Attending: JUAN CARLOS Current LOS: 5 Anticipated DC Date: 04-01-2017 Planned Disposition: Group Home Facility Primary Insurance: [facility] Discharge Planning Comments: CM MET WITH PATIENT AND DAUGHTER (VIVIANA SHEARER) REGARDING D/C NEEDS AND PLANS. PATIENT STATED SHE HAS 3 STEPS W/RAILS TO ENTER HOME AND NO STAIRS INSIDE. PATIENT IS INDEPENDENT WITH HER CARE AND HAS A WALKER, CANE, WHEELCHAIR, BS COMMODE, AND C-PAP AT HOME. PATIENTS PCP IS DR. MORAN AND PHARMACY IS [facility]. PATIENT ADMITTED FROM [facility]. PATIENT DOES NOT WANT TO GO BACK TO THE [facility] - WOULD RATHER GO TO [place]. PATIENT SIGNED THE JESSICA FORM FOR [place]/SENDING REFERRAL. CM WILL CONTINUE TO FOLLOW PATIENT WITH D/C NEEDS AND PLANS. PCP DR[facility] [phone] VIVIANA SHEARER (DAUGHTER) [phone] Account Management Specialist: Fabiolalivan Anaya Is the patient Alert and Oriented? Yes 0 * How many steps to enter\exit or inside your home? 3 w/rails 0 * PCP DR. MORAN 0 * Pharmacy [facility] * Preadmission Environment Group Home Facility 0 * Facility Name [facility] 0 * ADLs Independent 0 * Equipment Bedside Commode Cane CPAP Shower Chair Walker Wheelchair 0 * List name and contact numbers for known caregivers / representatives who currently or will assist patient after discharge: VIVIANA SHEARER [phone] (DAUGHTER) 0 * Community resources currently utilized None 0 * Additional services required to return to the preadmission environment? Yes 0 * Can the patient safely return to the preadmission environment? Yes 0 * Has this patient been hospitalized within the prior 30 days at any hospital? Yes 0 Grand Total: 0
--- NOTE | 2017-03-28 10:04 | NUR ---
AWAKE AND ALERT. UP IN CHAIR AT BEDSIDE PER PT. NO C/O AT THIS TIME. LUNGS ARE CLEAR BILATERALLY, NO COUGH NOTED. SKIN IS INTACT WITHOUT REDNESS EXCEPT SMALL STAGE 2 TO BUTTOCKS, MEPELEX IN PLACE TO SAME. LEFT PORT PATENT WITHOUT REDNESS AT INSERTION SITE. DENIES NEEDS AT THIS TIME.
--- NOTE | 2017-03-28 12:23 | NUR ---
WOUND CARE: PTS OSTOMY BAG WILL NOT STAY ON D/T CONTINUED LEAKAGE. CLEANSED SKIN AND DRIED, USING STOMA PASTE AND POWDER APPLIED NEW APPLIANCE CUTTING OPENING AT 1-3/4" . PT TOLERATED WELL. WILL FOLLOW.
[2017-03-28 12:46] VITALS: BP 123/61; BP 141/82
[2017-03-28 16:47] VITALS: BP 103/58
--- NOTE | 2017-03-28 19:50 | NUR ---
NO CHANGES NOTED AT THIS TIME. DENIES NEEDS.
[2017-03-28 20:00] VITALS: BP 122/52
[2017-03-29] VITALS (14 sets, daily range): BP systolic 95–168; BP diastolic 42–80
--- NOTE | 2017-03-29 01:15 | NUR ---
ASSESSED AT THE BEGINNING OF THE SHIFT. PT IS ALERT AND ORIENTED, SHE IS ABLE TO VERBALIZE NEEDS. SHE IS AWARE THAT SHE IN NPO FOR SURGERY AT MIDNIGHT. WE HAVE CHANGED THE ILEOSTOMY BAG DUE TO LEAKING AND NEW DRESSINGS WER APPLIED TO A SORE ON HER RT LOWER ABD AND THE CRACK OF HER COCCYX. SHE WAS ALSO CREAMED UP WITH BODUREAUXS BUTT PASTE TO HER JELANI AND COCCY ARE RASH. SHE HAS A GOMEZ IN PLACE AND IS USING BIPAP AT NIGHT.
--- NOTE | 2017-03-29 07:30 | NUR ---
AWAKE AND ALERT. ORIENTED X3. NO C/O THIS AM. LUNGS ARE CLEAR BILATERALLY, NO COUGH NOTED. SKIN IS INTACT WITHOUT REDNESS EXCEPT STAGE 2 TO BUTTOCKS WHICH HAS A MEPELEX IN PLACE. LEFT PORT IS PATENT WITHOUT REDNESS AT INSERTION SITE. NPO THIS AM FOR SURGERY.
[2017-03-29 07:43] LABS: BASOPHILS 0 % (0-2); EOSINOPHILS 2.9 % (0-7); HEMATOCRIT 24.7 % (36.0-48.0); HEMOGLOBIN 8.2 g/dL (12-16); IMMATURE GRANULOCYTES 0.3 % (0-5); LYMPHOCYTES 18.9 % (15-50); MCH 30.3 pg (26.0-34.0); MCHC 33.2 g/dL (31.0-37.0); MCV 91.1 fL (80.0-100.0); MEAN PLATELET VOLUME 10.5 fL (7.4-10.4); NEUTROPHILS 71.9 % (40-80); PLATELET COUNT 83 10x3/uL (130-400); RBC 2.71 10x6/uL (4.00-5.40); WBC 3.5 10x3/uL (4.8-10.8)
[2017-03-29 07:58] LABS: APTT 41.7 SECONDS (22.8-39.4); INR 1.65 (0.85-1.17); PROTIME 19.5 SECONDS (11.6-15.0)
[2017-03-29 08:14] LABS: ANION GAP 11.1 mmol/L (8-16); CALCIUM 10.4 mg/dL (8.5-10.1); CARBON DIOXIDE 23.3 mmol/L (21.0-32.0); CREATININE - SERUM 1.7 mg/dL (0.6-1.3); POTASSIUM - SERUM 3.4 mmol/L (3.5-5.1)
[2017-03-29 08:40] LABS: MAGNESIUM - SERUM 0.7 mg/dL (1.8-2.4)
--- NOTE | 2017-03-29 10:45 | NUR ---
OFF UNIT VIA BED TO SURGERY.
--- NOTE | 2017-03-29 13:05 | NUR ---
RETURNED FROM SURGERY. A/O X3. DRESSING TO MID NECK DRY AND INTACT. DENIES PAIN. JESE TO NECK PATENT WITH SEROUS SANGUINESS DRAINAGE NOTED. FAMILY IN ROOM.
[2017-03-29 14:36] LABS: BASOPHILS 0 % (0-2); EOSINOPHILS 1.7 % (0-7); HEMATOCRIT 24.8 % (36.0-48.0); HEMOGLOBIN 8.2 g/dL (12-16); IMMATURE GRANULOCYTES 0.6 % (0-5); LYMPHOCYTES 14.2 % (15-50); MCH 30.3 pg (26.0-34.0); MCHC 33.1 g/dL (31.0-37.0); MCV 91.5 fL (80.0-100.0); MEAN PLATELET VOLUME 9.5 fL (7.4-10.4); MONOCYTES 7.8 % (2-11); NEUTROPHILS 75.7 % (40-80); PLATELET COUNT 76 10x3/uL (130-400); RBC 2.71 10x6/uL (4.00-5.40); WBC 3.6 10x3/uL (4.8-10.8)
--- NOTE | 2017-03-29 15:51 | NUR ---
ATE A BOWL OF SOUP FOR LUNCH. WAS GIVEN 0.5 MG DILAUDID SLOW IVP FOR C/O NECK PAIN LEVEL 6. WILL MONITOR.
[2017-03-29] MEDS ORDERED: BUPROPION HCL150 M1 PO (16:52)
--- NOTE | 2017-03-29 20:16 | NUR ---
ATE MOST OF SUPPER. NO C/O AT THIS TIME. NO CHANGES NOTED. ILEOSTOMY BLEW OUT. APPLIANCE CHANGED PER STAFF. LINENS CHANGED.
[2017-03-30] VITALS: BP 99/55
[2017-03-30 04:00] VITALS: BP 99/45
[2017-03-30 06:54] LABS: BASOPHILS 0 % (0-2); HEMATOCRIT 23.9 % (36.0-48.0); HEMOGLOBIN 7.8 g/dL (12-16); IMMATURE GRANULOCYTES 0.6 % (0-5); LYMPHOCYTES 17.1 % (15-50); MCH 30.5 pg (26.0-34.0); MCHC 32.6 g/dL (31.0-37.0); MCV 93.4 fL (80.0-100.0); MEAN PLATELET VOLUME 10.5 fL (7.4-10.4); MONOCYTES 6.6 % (2-11); NEUTROPHILS 73.7 % (40-80); PLATELET COUNT 78 10x3/uL (130-400); RBC 2.56 10x6/uL (4.00-5.40); RDW 17.4 % (11.5-14.5); WBC 3.5 10x3/uL (4.8-10.8)
[2017-03-30 07:07] LABS: ANION GAP 10.2 mmol/L (8-16); CALCIUM 8.9 mg/dL (8.5-10.1); CARBON DIOXIDE 23.7 mmol/L (21.0-32.0); CREATININE - SERUM 1.7 mg/dL (0.6-1.3); PHOSPHOROUS 2.8 mg/dL (2.5-4.9); POTASSIUM - SERUM 3.9 mmol/L (3.5-5.1)
[2017-03-30 07:13] LABS: MAGNESIUM - SERUM 0.8 mg/dL (1.8-2.4)
[2017-03-30 09:57] VITALS: BP 124/58
--- NOTE | 2017-03-30 10:10 | NUR ---
PATIENT IS RESTING IN THE BED. AWAKE, ALERT, AND ORIENTED X4. PATIENT DENIES ANY PAIN. SCHEDULED MORNING MEDICATIONS GIVEN TO PATIENT. PATIENT TOLERATED WELL. PATIENT DENIES ANY NEEDS AT PRESENT TIME. CALL LIGHT IN PATIENT'S REACH. WILL MONITOR.
[2017-03-30 11:56] VITALS: BP 133/50
--- NOTE | 2017-03-30 11:57 | NUR ---
PATIENT COMPLAINS OF PAIN IN HER NECK WHERE HER INCISION IS. DRESSING IS C/D/I TO PATIENT'S NECK AREA. PRN VICOPROFEN GIVEN TO PATIENT. PATIENT TOLERATED WELL. PATIENT DENIES ANY FURTHER NEEDS AT PRESENT TIME. CALL LIGHT IN PATIENT'S REACH. WILL MONITOR.
[2017-03-30 16:32] VITALS: BP 149/51
--- NOTE | 2017-03-30 16:49 | NUR ---
PT IN BED AOX2 RESP EVEN AND NONLABORED DAUGHTER AT BEDSIDE. COLOSTOMY WAFER AND BAG CHANGED AT THIS TIME. 1 UNIT PRBC STARTED WITHOUT DIFFICULTY AT THIS TIME WILL CONTINUE TO MONITOR
--- NOTE | 2017-03-30 23:45 | NUR ---
ASSUMED CARE FROM NILE EDWARD. PT. STILL HAS ONE MORE UNIT OF PRBC'S TO INFUSE. FIRST UNIT COMPLETED AT THIS TIME BUT TUBING STILL IN PLACE AND NS AT KVO RATE INFUSING TIL NEXT UNIT AVAILABLE. PT. HAS NO COMPLAINTS. DRESSING TO NECK C/D/I CALL LIGHT WITHIN REACH. GOMEZ TO BSD WITHOUT PROBLEMS. ILEOSTOMY WITH WATERY FLUID AND NO LEAKS AT STOMA SITE.
--- NOTE | 2017-03-31 03:32 | NUR ---
PT. IN BED WITH HOB UP FOR COMFORT WITH EYES CLOSED AND RESP. DEEP AND EVEN. PT. WEARING HER BI-PAP ON HER NOSE WITHOUT PROBLEMS. CALL LIGHT WITHIN REACH. JASON TO BSD WITHOUT PROBLEMS.
[2017-03-31 04:00] VITALS: BP 113/57
[2017-03-31 05:41] LABS: BASOPHILS 0 % (0-2); EOSINOPHILS 0.7 % (0-7); IMMATURE GRANULOCYTES 0.3 % (0-5); LYMPHOCYTES 3.4 % (15-50); MCHC 32.9 g/dL (31.0-37.0); MEAN PLATELET VOLUME 10.3 fL (7.4-10.4); MONOCYTES 6.5 % (2-11); NEUTROPHILS 89.1 % (40-80); PLATELET COUNT 84 10x3/uL (130-400); RDW 16.9 % (11.5-14.5)
[2017-03-31 05:43] LABS: HEMATOCRIT 30.7 % (36.0-48.0); HEMOGLOBIN 10.1 g/dL (12-16); MCV 91.1 fL (80.0-100.0); RBC 3.37 10x6/uL (4.00-5.40); WBC 6.8 10x3/uL (4.8-10.8)
[2017-03-31 05:53] LABS: ANION GAP 14.7 mmol/L (8-16); CALCIUM 8.7 mg/dL (8.5-10.1); CARBON DIOXIDE 20.8 mmol/L (21.0-32.0); CREATININE - SERUM 1.7 mg/dL (0.6-1.3); POTASSIUM - SERUM 3.5 mmol/L (3.5-5.1)
[2017-03-31 07:00] VITALS: BP 110/40
--- NOTE | 2017-03-31 07:10 | NUR ---
PATIENT RESTING QUIETLY WITH HER EYES CLOSED. PATIENT AWAKENS EASILY TO VERBAL STIMULI. PATIENT DENIES ANY NEEDS AT PRESENT TIME. CALL LIGHT IN PATIENT'S REACH. WILL MONITOR PATIENT.
--- NOTE | 2017-03-31 09:12 | NUR ---
PATIENT IS RESTING IN HER BED. PATIENT IS AWAKE, ALERT, AND ORIENTED X4. NO COMPLAINTS OF PAIN AT PRESENT TIME. SCHEDULED MORNING MEDICATIONS GIVEN TO PATIENT. PATIENT TOLERATED WELL. ASSESSMENT COMPLETED. SEE FLOWSHEET FOR ANY DETAILS. PATIENT DENIES ANY NEEDS AT PRESENT TIME. CALL LIGHT IN PATIENT'S REACH. WILL MONITOR PATIENT.
[2017-03-31] MEDS ORDERED: DIFLUCAN100 MG PO (10:31)
[2017-03-31] MEDS ORDERED: XIFAXAN550 MG PO (10:31)
[2017-03-31] MEDS ORDERED: CHRONULAC30 ML PO (10:33)
[2017-03-31] MEDS ORDERED: K-TAB10 MEQ PO (10:34)
[2017-03-31] MEDS ORDERED: SODIUM BICARBO650 MG PO (10:35)
[2017-03-31 12:32] VITALS: BP 134/59
[2017-03-31 14:57] VITALS: BP 126/56
--- NOTE | 2017-03-31 15:08 | NUR ---
Patient Name: TIMO FUCHS Encounter No: [id number] : 1960 Primary Insurance: [id number] Anticipated DC Date: 04-01-2017 Planned Disposition: Nursing Home Facility External Planned Provider: [facility] - [phone] DCP follow-up note: Order received for home health. CM met with patient, JESSICA discussed, a list of agencies given to patient, she selected the first one on the list which was [facility]. Patient signed JESSICA form. Information faxed to [facility]. CM spoke to Johanna IGLESIAS with [facility] and notified of referral. CM also left message for Jocelyn with [facility] about referral. Patient denied further dc needs. CM will continue to follow and will assist with dc plan/needs. Niki Gomez Rn, [facility] [phone]
--- NOTE | 2017-03-31 15:12 | NUR ---
DISCHARGE INSTRUCTIONS VERBALIZED TO PATIENT. PATIENT VERBALIZED UNDERSTANDING AND SIGNED DISCHARGE SHEETS. LEFT UPPER CHEST INFUSAPORT FLUSHED WITHOUT ANY DIFFICULTIES NOTED. WHEELER NEEDLE DC'D WITHOUT ANY PROBLEMS. NO BLEEDING NOTED. 2X2 GAUZE AND MEDIPORE TAPE APPLIED.
--- NOTE | 2017-03-31 15:15 | NUR ---
PATIENT DISCHARGED VIA WHEELCHAIR TO THE CAR. DAUGHTER HERE TO DRIVE PATIENT HOME.
== END 2017-03-31 15:15 | disposition home health service (06) | DRG 673 ==
LOC: D.ER 17:03 → D.MS 23:51 → D.CVICU 23:51 → D.ICU 23:51 → D.CVICU 03-24 00:27 → D.ICU 03-24 05:10 → D.MS 03-26 17:23
PROVIDERS: Emergency Medicine; Internal Medicine; Internal Medicine Gastroenterology; Internal Medicine Nephrology; Surgery; ADMIT Family Medicine
PROC: 0GBR0ZZ Excision of Parathyroid Gland, Open Approach (ICD-10-PCS; principal; 2017-03-29 10:20)
DX: N17.0 Acute kidney failure with tubular necrosis (principal); L89.323 Pressure ulcer of left buttock, stage 3; L89.313 Pressure ulcer of right buttock, stage 3; B37.49 Other urogenital candidiasis; E87.2 Acidosis; K72.90 Hepatic failure, unspecified without coma; E83.52 Hypercalcemia; B19.20 Unspecified viral hepatitis C without hepatic coma; K74.60 Unspecified cirrhosis of liver; E21.3 Hyperparathyroidism, unspecified; D35.1 Benign neoplasm of parathyroid gland; I10 Essential (primary) hypertension; E78.5 Hyperlipidemia, unspecified; D63.8 Anemia in other chronic diseases classified elsewhere; D69.6 Thrombocytopenia, unspecified; E11.40 Type 2 diabetes mellitus with diabetic neuropathy, unspecified; E87.6 Hypokalemia; E66.9 Obesity, unspecified; Z68.31 Body mass index [BMI] 31.0-31.9, adult; I95.9 Hypotension, unspecified

== ENCOUNTER 2017-04-07 21:12 | Inpatient (IN) | payer MEDICARE, MEDICAID ==
[~2017-04-07] VITALS: Ht 154.9 cm; Wt 79.1 kg
[~2017-04-07 21:12] MED LIST changes: +BUPROPION HCL150 M1 PO; +DIFLUCAN100 MG PO; +K-TAB10 MEQ PO; +SODIUM BICARBO650 MG PO; +VITAMIN D250000 UNIT PO; +XIFAXAN550 MG PO
[2017-04-07 22:08] LABS: HEMATOCRIT 36.4 % (36.0-48.0); HEMOGLOBIN 12.5 g/dL (12-16); MCH 30.6 pg (26.0-34.0); MCHC 34.3 g/dL (31.0-37.0); MEAN PLATELET VOLUME 10.5 fL (7.4-10.4); PLATELET COUNT 147 10x3/uL (130-400); RBC 4.09 10x6/uL (4.00-5.40); RDW 17.2 % (11.5-14.5)
[2017-04-07 22:19] LABS: ALBUMIN 2.7 g/dL (3.4-5.0); BILIRUBIN - TOTAL 0.95 mg/dL (0.2-1.3); CALCIUM 7.2 mg/dL (8.5-10.1); CREATININE - SERUM 10.8 mg/dL (0.6-1.3); PROTEIN - SERUM 9.1 g/dL (6.4-8.2)
[2017-04-07 22:30] LABS: LYMPHOCYTES 3 % (15-50); MONOCYTES 1 % (2-11); NEUTROPHILS 96 % (40-80); PLATELET ESTIMATE DECREASED
[2017-04-07 22:37] LABS: ANION GAP 30.6 mmol/L (8-16); CARBON DIOXIDE 8.3 mmol/L (21.0-32.0); POTASSIUM - SERUM 7.9 mmol/L (3.5-5.1)
[2017-04-07 23:13] LABS: UDS - AMPHET NEGATIVE QUAL (NEGATIVE); UDS - BARB NEGATIVE QUAL (NEGATIVE); UDS - METH NEGATIVE QUAL (NEGATIVE); UDS - OPIATE NEGATIVE QUAL (NEGATIVE)
[2017-04-07 23:14] LABS: APPEARANCE TURBID (CLEAR); BACTERIA MANY /hpf (NONE SEEN); BILIRUBIN NEGATIVE (NEGATIVE); COLOR YELLOW (YELLOW); EPITHELIAL CELLS 0-5 /hpf (0-5); GLUCOSE NEGATIVE (NEGATIVE); KETONE NEGATIVE (NEGATIVE); LEUKOCYTE ESTERASE 2+ (NEGATIVE); NITRITE NEGATIVE (NEGATIVE); PROTEIN 2+ mg/dL (NEGATIVE); SPECIFIC GRAVITY 1.015 (1.005-1.020); UROBILINOGEN NORMAL (NORMAL); WHITE CELLS - URINE >50 /hpf (0-5)
[2017-04-07 23:27] LABS: UDS - BENZO NEGATIVE QUAL (NEGATIVE); UDS - COCAINE NEGATIVE QUAL (NEGATIVE); UDS - PCP NEGATIVE QUAL (NEGATIVE); UDS - THC NEGATIVE QUAL (NEGATIVE)
[2017-04-08] VITALS (81 sets, daily range): BP systolic 86–142; BP diastolic 34–92; Ht 154.9 cm; Wt 79.1 kg
--- NOTE | 2017-04-08 02:18 | NUR ---
RECEIVED PT TO ROOM 2307 VIA STRETCHER, ICU MONITORS ESTABLISHED, HR 91 WITH FREQUENT PAC'S NOTED, ASSESSMENT PER FLOWSHEET, PT LETHARGIC, AROUSES TO VOICE, INCONSISTENTLY FOLLOWS COMMANDS, GOMEZ CATH PATENT WITH CLOUDY URINE IN TUBING, PPP, BREATH SOUNDS DIMINISHED BILAT, WILL MONITOR.
--- NOTE | 2017-04-08 03:15 | NUR ---
DR ZIEGLER CALLED, UPDATED REGARDING PT STATUS, ORDERS RECEIVED.
[2017-04-08 05:10] LABS: BASOPHILS 0 % (0-2); EOSINOPHILS 0 % (0-7); HEMATOCRIT 33.9 % (36.0-48.0); HEMOGLOBIN 11.7 g/dL (12-16); IMMATURE GRANULOCYTES 0.5 % (0-5); LYMPHOCYTES 4.2 % (15-50); MCH 30.5 pg (26.0-34.0); MCHC 34.5 g/dL (31.0-37.0); MCV 88.3 fL (80.0-100.0); MEAN PLATELET VOLUME 9.9 fL (7.4-10.4); MONOCYTES 6.8 % (2-11); NEUTROPHILS 88.5 % (40-80); PLATELET COUNT 144 10x3/uL (130-400); RBC 3.84 10x6/uL (4.00-5.40)
[2017-04-08 05:24] LABS: ALBUMIN 2.5 g/dL (3.4-5.0); BILIRUBIN - TOTAL 1.07 mg/dL (0.2-1.3); CREATININE - SERUM 10.4 mg/dL (0.6-1.3); MAGNESIUM - SERUM 1.7 mg/dL (1.8-2.4); PHOSPHOROUS 8.9 mg/dL (2.5-4.9); PROTEIN - SERUM 8.4 g/dL (6.4-8.2)
[2017-04-08 05:43] LABS: ANION GAP 28.7 mmol/L (8-16); CARBON DIOXIDE 11.3 mmol/L (21.0-32.0)
[2017-04-08 05:44] LABS: CALCIUM 6.8 mg/dL (8.5-10.1)
--- NOTE | 2017-04-08 06:00 | NUR ---
DR ZIEGLER UPDATED REGARDING AM LAB AND PT STATUS, ORDERS RECEIVED.
--- NOTE | 2017-04-08 07:20 | NUR ---
REPORT RECD PT CARE ASSUMED. PT IS LETHARGIC, RESPONDS TO STIMULI. S1S2 NOTED, SR PER CM W/ PAC. LUNG SOUNDS ARE SHALLOW/DIMINISHED. PT HAS ILEOSTOMY AND MUTIPLE SCARS/WOUNDS, SEE SHIFT ASSESSMENT. VSS. WILL MONITOR.
--- NOTE | 2017-04-08 08:47 | NUR ---
PORT DRESSING NOTED TO BE NON-OCCLUSIVE. DRESSING CHANGED AT THIS TIME.
--- NOTE | 2017-04-08 09:50 | NUR ---
DR MORALES HERE TO PLACE TRIALYSIS CATH.
--- NOTE | 2017-04-08 11:00 | NUR ---
UPDATE GIVEN TO FAMILY. PT STATUS REMAINS UNCHANGED AT THIS TIME. WILL CONTINUE TO MONITOR
--- NOTE | 2017-04-08 13:00 | NUR ---
PT SITTING UP EATING LUNCH TRAY WITH MINIMAL ASSISTANCE. SCHEDULED FOR DIALYSIS TODAY. WILL MONITOR CLOSELY DURING THERAPY.
--- NOTE | 2017-04-08 15:00 | NUR ---
PT RECEIVING HD AT BEDSIDE PER DIALYSIS NURSE. PT APPEARS MORE ORIENTED AT THIS TIME. WILL CONTINUE TO MONITOR DURING THERAPY. NO FURTHER CHANGES.
--- NOTE | 2017-04-08 19:15 | NUR ---
REPORT RECIEVED. ASSESSMENT COMPLETE PER FLOW SHEET. REFER FOR FINDINGS. PT DENIES PAIN OR NEEDS AT THIS TIME. VSS. DENIES PAIN OR NEEDS. WILL CNOTINUE TO MONITOR.
--- NOTE | 2017-04-08 21:28 | NUR ---
FAMILY AT BEDSIDE. GIVEN UPDATE. VSS. NO NEW CHANGE
--- NOTE | 2017-04-08 23:42 | NUR ---
REASSESSMENT COMPLETE PER FLOW SHEET. VSS. NO NEW CHANGES. WILL CONTINUE TO MONITOR.
[2017-04-09] VITALS (51 sets, daily range): BP systolic 81–122; BP diastolic 34–56
--- NOTE | 2017-04-09 01:20 | NUR ---
NO NEW CHANGES. PT SLEEPING COMFORTABLY WILL CONTINUE TO MONITOR.
--- NOTE | 2017-04-09 03:37 | NUR ---
REASSESSMENT COMPLETE PER FLOW SHEET. VSS. NO NEW CHANGES. WILL CONTINUE TO MONITOR.
[2017-04-09 05:24] LABS: CALCIUM 7.1 mg/dL (8.5-10.1)
[2017-04-09 05:28] LABS: BASOPHILS 0 % (0-2); EOSINOPHILS 0 % (0-7); HEMOGLOBIN 9.1 g/dL (12-16); IMMATURE GRANULOCYTES 0.2 % (0-5); LYMPHOCYTES 6.9 % (15-50); MCH 29.4 pg (26.0-34.0); MCHC 33.7 g/dL (31.0-37.0); MCV 87.1 fL (80.0-100.0); MEAN PLATELET VOLUME 10.2 fL (7.4-10.4); NEUTROPHILS 80.9 % (40-80); PLATELET COUNT 87 10x3/uL (130-400); RDW 17.1 % (11.5-14.5); WBC 9.7 10x3/uL (4.8-10.8)
[2017-04-09 05:36] LABS: ANION GAP 16.3 mmol/L (8-16); CARBON DIOXIDE 22.8 mmol/L (21.0-32.0); CREATININE - SERUM 6.3 mg/dL (0.6-1.3); POTASSIUM - SERUM 4.1 mmol/L (3.5-5.1)
--- NOTE | 2017-04-09 07:00 | NUR ---
PT AAOX4 AND RESPONDS TO COMMANDS. NEURO STATUS IMPROVED TODAY. WEAKNESS IMPROVED. SHIFT ASSESSMENT DOCUMENTED PER FLOWSHEET. ILLEOSTOMY BAG FULL AND BUSTED. CLEANED OFF OF PT AND FLOOR, FULL LINEN CHANGE COMPLETE AND BED BATH GIVEN. PT IS HEP C POSITIVE PER HISTORY, SAFETY MEASURES TAKEN WHEN CLEANING STOOL. VITAL SIGNS STABLE. WILL CONTINUE TO MONITOR
--- NOTE | 2017-04-09 08:02 | OP ---
PATIENT NAME: TIMO FUCHS MEDICAL RECORD: [id number] :60 LOCATION:[facility] D.2307 ADMISSION DATE:04/08/17 SURGEON: KALEY MORALES MD DATE OF OPERATION: 04/08/2017 SURGEON: Kaley Morales MD. PREOPERATIVE DIAGNOSES: 1. Acute renal failure. 2. Severe life-threatening hyperkalemia. POSTOPERATIVE DIAGNOSES: 1. Acute renal failure. 2. Severe life-threatening hyperkalemia. PROCEDURE PERFORMED: Ultrasound-guided left internal jugular Trialysis catheter placement. ANESTHESIA: Local. COMPLICATIONS: None. SPECIMENS: None. Case was clean. ESTIMATED BLOOD LOSS: 10 cc. OPERATIVE COURSE: After consent was obtained, the patient was placed in the supine position on her ICU bed. A shoulder roll was placed and she was placed in Trendelenburg position. A timeout was taken to confirm the correct patient and procedure. The left chest and neck were prepped and draped in typical sterile fashion. Local anesthetic was placed. The left internal jugular vein was identified under ultrasound with ultrasound guidance. Left internal jugular vein was cannulated. A guidewire was placed. The needle was removed. A stab incision was made in the skin with an 11-blade scalpel. The dilators were passed over the wire serially in a standard Seldinger fashion. Next, the 13-Grenadian Trialysis catheter was passed through the wire in a standard Seldinger fashion. The wire was removed. The catheter was secured to the skin using 2-0 nylon suture. A sterile Tegaderm dressing was placed. All 3 ports were aspirated and flushed. At the end of the case, all needle and instrument counts were correct. No complications occurred. Immediate post-procedure chest x-ray was performed to confirm correct placement of the line. TRANSINT:[id number] Voice Confirmation ID: [id number] DOCUMENT ID: [id number] KALEY MORALES MD at 0802 CC: [id number] DICTATION DATE: 04/08/17 1119 CLOUD INFRASTRUCTURE ARCHITECT: 04/08/17 1240 [place] [address]
--- NOTE | 2017-04-09 09:00 | NUR ---
CARDIOLOGY ROUNDED ON PT. REMAINS IN CONTROLLED AFIB. PT APPEARS TO BE STABLE AT THIS TIME. WEANING NANCY TOLERATED FOR BP. WILL CONTINUE TO MONITOR
--- NOTE | 2017-04-09 10:00 | NUR ---
NANCY TURNED OFF. WILL MONITOR BP CLOSELY OFF OF VASOPRESSOR. BP STABLE AT THIS TIME.
--- NOTE | 2017-04-09 11:00 | NUR ---
PT ASLEEP AND ABLE TO TURN SELF IN BED. WILL CONTINUE TO MONITOR PRESSURE WITH NANCY OFF.
--- NOTE | 2017-04-09 13:00 | NUR ---
FAMILY AT BEDSIDE AND UPDATE GIVEN. PT SITTING UP AND WAS ABLE TO EAT LUNCH INDEPENDENTLY. NO CHANGES FROM PREVIOUS ASSESSMENT. WILL CONTINUE TO MONITOR
--- NOTE | 2017-04-09 15:00 | NUR ---
CENTRAL LINE DRESSING CHANGED ON TRIALYSIS CATHETER. PT REMIANS STABLE AT THIS TIME.
--- NOTE | 2017-04-09 17:00 | NUR ---
NO ACUTE CHANGES IN PT STATUS AT THIS TIME. WILL CONTINUE TO MONTIOR CLOSELY. VITAL SIGNS STABLE
--- NOTE | 2017-04-09 19:00 | NUR ---
REPORT RECEIVED AND ASSESSMENT COMPLETED. SEE FLOWSHEET FOR FULL DETAILS.
--- NOTE | 2017-04-09 21:00 | NUR ---
2100 MEDS GIVEN. BETAPACE HELD FOR LOW B/P. VSS OTHERWISE. WILL CONTINUE TO MONITOR.
--- NOTE | 2017-04-09 23:19 | NUR ---
REASSESSMENT COMPLETED. SEE FLOWSHEET FOR FULL DETAILS. VSS. PT B/P STILL LOW. NOW 100/55. WILL CONTINUE TO MONITOR CLOSELY.
[2017-04-10] VITALS (36 sets, daily range): BP systolic 94–147; BP diastolic 36–59
--- NOTE | 2017-04-10 01:00 | NUR ---
NO CHANGES IN STATUS AT THIS TIME. B/P MAINTAINING IN 90'S SYSTOLIC. WILL CONTINUE TO MONITOR
--- NOTE | 2017-04-10 03:00 | NUR ---
REASSESSMENT COMPLETED. SEE FLOWSHEET FOR FULL DETAILS. VSS. PT B/P STILL LOW BUT HAS INCREASED TO 118 SYSTOLIC. WILL CONTINUE TO MONITOR
[2017-04-10 05:26] LABS: BASOPHILS 0 % (0-2); EOSINOPHILS 0.2 % (0-7); LYMPHOCYTES 7.5 % (15-50); MCH 29.6 pg (26.0-34.0); MCHC 33.2 g/dL (31.0-37.0); MEAN PLATELET VOLUME 9.2 fL (7.4-10.4); MONOCYTES 6.5 % (2-11); NEUTROPHILS 85.8 % (40-80); RDW 16.8 % (11.5-14.5)
[2017-04-10 05:32] LABS: HEMATOCRIT 21.4 % (36.0-48.0); MCV 89.2 fL (80.0-100.0)
[2017-04-10 05:34] LABS: HEMOGLOBIN 7.1 g/dL (12-16); PLATELET COUNT 41 10x3/uL (130-400)
--- NOTE | 2017-04-10 05:41 | NUR ---
PT CRITICAL LAB RESULTS RECEIVED. PLT 41, HGB, 7.1. WILL NOTIFY PHYSICIAN. WILL CONTINUE TO MONITOR
[2017-04-10 05:48] LABS: CARBON DIOXIDE 21.1 mmol/L (21.0-32.0); CREATININE - SERUM 4.9 mg/dL (0.6-1.3); PHOSPHOROUS 5.2 mg/dL (2.5-4.9); POTASSIUM - SERUM 4.1 mmol/L (3.5-5.1)
[2017-04-10 06:01] LABS: ALBUMIN 1.7 g/dL (3.4-5.0)
[2017-04-10 06:02] LABS: CALCIUM 6.9 mg/dL (8.5-10.1)
--- NOTE | 2017-04-10 07:57 | EC ---
PATIENT:TIMO FUCHS DATE OF SERVICE: 04/08/17 SEX: F MEDICAL RECORD: [id number] DATE OF : 60 LOCATION:[facility] D.230 AGE OF PATIENT: 56 ADMISSION DATE: 04/08/17 REFERRING PHYSICIAN: INTERPRETING PHYSICIAN: RADHA SIGALA MD ECHOCARDIOGRAM REPORT ECHO CHARGES 4 ECHO COMPLETE CLINICAL DIAGNOSIS: AFIB ECHOCARDIOGRAPHIC MEASUREMENTS (adult normal given) AC root (d.<3.7cm) 4.1 LV Septum d (<1.2 cm> 1.3 Valve Excursion 2.0 LV Septum (systole) 1.6 Left Atria (s.<4.0cm> 4.6 LVPW d(<1.2cm) 1.4 RV (d.<2.3cm) 3.7 LVPW (sytole) 1.8 LV diastole(<5.6CM) 5.3 MV E-F(>70mm/sec) LV systole 2.7 LVOT Diameter 1.8 MV exc.(>10mm) 1.4 Est.ejection fraction (50-75%) Pericardial Effusion N DOPPLER: LVIT A 60.0 E 87.0 LA RVSP 25 LVOT 138 AOP1/2T Asc. Ao 204 RVOT 86 RA PA 140 AV Gradient Peak 16.70 AV Mean 5.43 AV Area 1.9 MV Gradient Peak 6.10 MV Mean 2.40 MV Area COMMENTS: Resistor Inspector: Alexandra ODONNELL Designer Writer:1 Dr. Sigala TAPE# PACS DATE OF SERVICE: 04/09/2017 FINDINGS: 1. Left ventricular chamber size is within normal limits. Left ventricular systolic function is normal. Overall ejection fraction estimated at 60%. 2. Left atrium, right atrium, and right ventricular chamber sizes are mildly dilated. Left atrium measures 4.6 cm. 3. Valvular structures: Aortic valve demonstrates mild calcific aortic stenosis. Valve area calculates to 1.9 cm-squared. There is a gradient of 16 mm across the valve. The remaining valvular structures have normal structure ECHOCARDIOGRAM REPORT [id number] TIMO FUCHS and motion. 4. Doppler interrogation elsewise reveals mild mitral regurgitation, mild tricuspid regurgitation, no other valvular insufficiency or stenosis. Pulmonary systolic pressure estimated at 25 mmHg. 5. No evidence of pericardial effusion or left ventricular thrombus. TRANSINT:[id number] Voice Confirmation ID: [id number] DOCUMENT ID: [id number] RADHA SIGALA MD at 0757 CC: [id number] DICTATION DATE: 04/09/17 1232 GEAR SHAPER SET UP OPERATOR: 04/09/17 1403 ADM IN [place] [id number] [place] [id number]
--- NOTE | 2017-04-10 10:34 | NUR ---
Nutrition follow-up: Diet still clear liquids; pt consuming 100% of clears Labs reviewed s/p emergent dialysis Wt: 180# Recommend advancing diet to at least full liquids to better meet est nutritional needs. If diet unable to advance within 24 hours nutrition support will need to be started. RDN following.
--- NOTE | 2017-04-10 11:15 | NUR ---
PATIENTS FIRST UNIT OF PRBC'S ([id number]) STARTED AFTER SAFETY CHECK WITH CHLOE MOHAN RN TO LEFT NECK TRIALYSIS UNIT. PATIENT DENIES QUESTIONS AT THIS TIME. WILL MONITOR.
[2017-04-10 11:22] LABS: HEPATITIS C ANTIBODY >11.0 (0.0-0.9)
--- NOTE | 2017-04-10 12:55 | NUR ---
PATIENT FIRST UNIT OF BLOOD COMPLETED. NO S/S OF REACTION NOTED.
--- NOTE | 2017-04-10 13:35 | NUR ---
PATIENTS SECOND UNIT OF BLOOD ([id number]) STARTED AFTER SAFETY CHECK WITH JOSE PACHECO RN TO LEFT NECK TRIALYSIS UNIT. WILL MONITOR.
--- NOTE | 2017-04-10 14:16 | NUR ---
PATIENTS COLOSTOMY EXPLODED EVERYWHERE. PATIENT CLEANED UP AND NEW OSTOMY KIT APPLIED. PATIENT TOLERATED WELL. SHE HAD STOOL IN THE DRESSING ON HER UNSTAGEABLE ON HER COCCYX, NEW MEPILEX APPLIED. WHILE BATHING, A SORE TO RIGHT LOWER QUAD, WHERE PREVIOUS OSTOMY SITE WAS, OPENED UP AND BEGAN BLEEDING. MEPILEX APPIED TO COVER THIS SITE TOO.
--- NOTE | 2017-04-10 15:45 | NUR ---
PATIENTS SECOND UNIT OF PRBC'S COMPLETED. NO S/S OF TRANSFUSION REACTION NOTED.
--- NOTE | 2017-04-10 16:30 | NUR ---
PATIENTS 3RD UNIT OF PRBC ([id number]) STARTED AFTER SAFETY CHECK WITH XAVIER GUZMAN RN TO A LEFT NECK TRIALYSIS UNIT. PATIENT CONTINUES TO DENY QUESTIONS. WILL MONITOR.
--- NOTE | 2017-04-10 18:40 | NUR ---
PATIENTS LAST UNIT OF PRBC'S COMPLETED. THERE WERE NO S/S OF TRANSFUSION REACTION.
--- NOTE | 2017-04-10 19:07 | NUR ---
REPORT CALLED TO KELSIE MEJIA. PATIENT WILL TRANSFER TO ROOM 2109.
--- NOTE | 2017-04-10 19:54 | NUR ---
RECEIVED TO [facility], ROOM 2109 VIA BED FROM ICU. AWAKE, ALERT AND ORIENTED. DENIES ANY NEEDS AT THIS TIME. ILEOSTOMY BAG EMPTIED WITH 400 CC DARK LIQUID. GOMEZ IN PLACE. WILL CONTINUE TO MONITOR.
[2017-04-11] VITALS: BP 156/52
[2017-04-11 04:00] VITALS: BP 146/56
[2017-04-11 05:46] LABS: BASOPHILS 0 % (0-2); EOSINOPHILS 0 % (0-7); IMMATURE GRANULOCYTES 0.2 % (0-5); LYMPHOCYTES 8.1 % (15-50); MCH 30.5 pg (26.0-34.0); MCHC 35.2 g/dL (31.0-37.0); MEAN PLATELET VOLUME 10.4 fL (7.4-10.4); MONOCYTES 5.7 % (2-11); RDW 15.7 % (11.5-14.5); WBC 4.9 10x3/uL (4.8-10.8)
[2017-04-11 05:58] LABS: HEMATOCRIT 28.4 % (36.0-48.0); MCV 86.6 fL (80.0-100.0); RBC 3.28 10x6/uL (4.00-5.40)
[2017-04-11 06:00] LABS: PLATELET COUNT 39 10x3/uL (130-400)
--- NOTE | 2017-04-11 06:05 | NUR ---
LAB CALLED CRITICAL PLATELET COUNT OF 39. RESULTS GIVEN VERBALLY TO DR. ZIEGELR.
[2017-04-11 06:12] LABS: ANION GAP 15.9 mmol/L (8-16); CALCIUM 7.2 mg/dL (8.5-10.1); CARBON DIOXIDE 19.6 mmol/L (21.0-32.0); PHOSPHOROUS 4.6 mg/dL (2.5-4.9); POTASSIUM - SERUM 3.5 mmol/L (3.5-5.1)
--- NOTE | 2017-04-11 07:25 | NUR ---
PT SITTING UP IN BED DENIES NEEDS WILL CONT TO MONITOR
[2017-04-11 07:48] VITALS: BP 149/57
--- NOTE | 2017-04-11 10:21 | NUR ---
PT ILEOSTOMY BAG FULL AND LEAKING IN BED. CHANGED COMPLETE OSTOMY BAG. CLEANSED AREA AND APPLIED SKIN BARRIER. OSTOMY BAG IS CDI. PT WITH PT NOW
--- NOTE | 2017-04-11 10:44 | NUR ---
P.T. GOT PT UP TO CHAIR, PT DENIES NEEDS
--- NOTE | 2017-04-11 10:49 | NUR ---
Nutrition follow-up: Diet has advanced to renal; po intake ~50% of meals at this time labs reviewed RDN following.
[2017-04-11 12:36] VITALS: BP 147/54
--- NOTE | 2017-04-11 15:50 | NUR ---
PT ILEOSTOMY HAS LEAKED AGAIN. COMPLETE CHANGE OF ILEOSTOMY BAG, COMPLETE BED CHANGE. PT DENIES OTHER NEEDS
--- NOTE | 2017-04-11 16:25 | NUR ---
PT FAMILY IS ASKING FOR RENAL DIET INFORMATION BEFORE THEY GO HOME. GAYLE RN ASKED IF KIM FROM DIETARY WOULD COME SEE PT TO GIVE EDUCATION ABOUT RENAL DIET, SHOULD BE BY TOMORROW
--- NOTE | 2017-04-11 17:16 | NUR ---
PT SITTING UP IN BED EATING DINNER DENIES NEEDS WILL CONT TO MONITOR
[2017-04-11 18:09] VITALS: BP 124/65
--- NOTE | 2017-04-11 18:51 | NUR ---
PT SITTING UP IN BED DENIES NEEDS
[2017-04-11 19:00] VITALS: BP 168/57
--- NOTE | 2017-04-11 20:10 | NUR ---
REPORT RECEIVED AND CARE ASSUMED. VSS. SHIFT ASSESSMENT COMPLETED PER FLOW SHEET. NO VOICED NEEDS. WILL CONTINUE TO MONITOR.
--- NOTE | 2017-04-11 22:30 | NUR ---
ILEOSTOMY BAG LEAKING. COMPLETE BAG REPLACED, BEDBATH GIVEN AND COMPLETE LINENS CHANGED.
[2017-04-12] VITALS: BP 185/70
--- NOTE | 2017-04-12 02:00 | NUR ---
ILEOSTOMY BAG EMPTIED. NO LEAKAGE NOTED AT THIS TIME.
[2017-04-12 04:00] VITALS: BP 157/53
--- NOTE | 2017-04-12 06:00 | NUR ---
COMPLETE BED CHANGE DUE TO BLADDER SPASM. GOMEZ CATHETER PATENT.
[2017-04-12 07:15] LABS: BASOPHILS 0 % (0-2); EOSINOPHILS 0.1 % (0-7); HEMATOCRIT 30.7 % (36.0-48.0); HEMOGLOBIN 10.4 g/dL (12-16); IMMATURE GRANULOCYTES 0.3 % (0-5); LYMPHOCYTES 4.3 % (15-50); MCH 29.9 pg (26.0-34.0); MCHC 33.9 g/dL (31.0-37.0); MCV 88.2 fL (80.0-100.0); MEAN PLATELET VOLUME 10.7 fL (7.4-10.4); NEUTROPHILS 91.3 % (40-80); RBC 3.48 10x6/uL (4.00-5.40); RDW 15.7 % (11.5-14.5)
[2017-04-12 07:34] LABS: WBC 6.8 10x3/uL (4.8-10.8)
[2017-04-12 07:37] LABS: PLATELET COUNT 44 10x3/uL (130-400)
[2017-04-12 07:56] LABS: ANION GAP 14.8 mmol/L (8-16); CALCIUM 7.3 mg/dL (8.5-10.1); CARBON DIOXIDE 20.6 mmol/L (21.0-32.0); CREATININE - SERUM 3.7 mg/dL (0.6-1.3); PHOSPHOROUS 4.6 mg/dL (2.5-4.9); POTASSIUM - SERUM 3.4 mmol/L (3.5-5.1)
[2017-04-12 08:06] VITALS: BP 139/52
--- NOTE | 2017-04-12 10:56 | NUR ---
AM ROUNDS - PT IS IN BED AND APPEARS TO BE SLEEPING. BREATHS ARE EQUAL AND NON LABORED. LEFT TRIALYSIS AND LEFT CHEST INFUSAPORT. RIGHT HAND WITH D5NS WITH 20KCL AT 30CC/HR/ PT IS CHAIRFAST. OSTOMY TO LEFT SIDE DRAINING SEEDY PARTIALLY FORMED AND LIQUID FECAL MATTER. NO NEEDS AT THIS TIME. WILL CONTINUE TO MONITOR.
[2017-04-12 12:12] VITALS: BP 161/65
--- NOTE | 2017-04-12 13:17 | NUR ---
Nutrition education: Provided pt with printed ADA consistent CHO, renal diet information. Questions answered. Also provided pt with RDN name and phone number.
[2017-04-12 15:56] VITALS: BP 177/72
[2017-04-12 19:00] VITALS: BP 169/53
--- NOTE | 2017-04-12 19:25 | NUR ---
ALERT/AWAKE TALKING AND LAUGHING WITH VISITORS PRESENT IN ROOM. DENIES PAIN OR ANY NEEDS. ON TELEMETRY, MONITOR SHOWS 55 SB. ORIENTED TO CALL LIGHT FOR ANY NEEDS.
--- NOTE | 2017-04-12 21:40 | NUR ---
ADMIN SCHED MEDS. NO OTHER NEEDS OR DISCOMFORTS VOICED. HER SISTER IS STAYING THE NIGHT.
[2017-04-13] VITALS: BP 168/59
--- NOTE | 2017-04-13 01:25 | NUR ---
EMPTIED ILEOSTOMY BAG 350CC. DENIES ANY OTHER NEEDS.
[2017-04-13 04:00] VITALS: BP 132/61
--- NOTE | 2017-04-13 06:10 | NUR ---
TIFFANY BLOOD FROM TRIALYSIS FOR LABS ORDERED. REQUESTED ANOTHER BLANKET.
[2017-04-13 06:16] LABS: BASOPHILS 0 % (0-2); EOSINOPHILS 0 % (0-7); HEMATOCRIT 31.4 % (36.0-48.0); HEMOGLOBIN 10.7 g/dL (12-16); IMMATURE GRANULOCYTES 0.5 % (0-5); LYMPHOCYTES 3.1 % (15-50); MCH 30.1 pg (26.0-34.0); MCHC 34.1 g/dL (31.0-37.0); MCV 88.5 fL (80.0-100.0); MEAN PLATELET VOLUME 9.9 fL (7.4-10.4); MONOCYTES 5.5 % (2-11); NEUTROPHILS 90.9 % (40-80); PLATELET COUNT 50 10x3/uL (130-400); RBC 3.55 10x6/uL (4.00-5.40); RDW 15.8 % (11.5-14.5)
[2017-04-13 06:37] LABS: ANION GAP 16.2 mmol/L (8-16); CREATININE - SERUM 3.2 mg/dL (0.6-1.3); POTASSIUM - SERUM 3.2 mmol/L (3.5-5.1)
[2017-04-13 06:38] LABS: MAGNESIUM - SERUM 0.8 mg/dL (1.8-2.4)
--- NOTE | 2017-04-13 07:50 | NUR ---
CALLED DR NOLASCO ON-CALL FOR DR MORAN RE: CRITICAL MAGNESIUM LAB VALUE 0.8. GAVE ORDER TO GIVE MAGNESIUM SULFATE 1 GRAM IV X ONE AND MAGNESIUM OXIDE 400 MG PO TID.
[2017-04-13 08:26] VITALS: BP 139/55
[2017-04-13 11:58] VITALS: BP 164/61
[2017-04-13 15:53] VITALS: BP 161/56
--- NOTE | 2017-04-13 19:35 | NUR ---
SITTING UP IN BED, AAOX3, SKIN WARM AND DRY, RESP UNLABORED, IV PATENT TO LEFT IP, LEFT ILEOSTOMY BAG INTACT, GOMEZ CATH INTACT, NO DISTRESS NOTED
[2017-04-13 20:20] VITALS: BP 159/73
[2017-04-14 00:09] VITALS: BP 149/57
[2017-04-14 04:15] VITALS: BP 153/60
[2017-04-14 07:11] LABS: BASOPHILS 0 % (0-2); EOSINOPHILS 0 % (0-7); HEMATOCRIT 30.2 % (36.0-48.0); HEMOGLOBIN 10.4 g/dL (12-16); IMMATURE GRANULOCYTES 0.3 % (0-5); LYMPHOCYTES 5.2 % (15-50); MCH 30.5 pg (26.0-34.0); MCHC 34.4 g/dL (31.0-37.0); MCV 88.6 fL (80.0-100.0); MEAN PLATELET VOLUME 11.1 fL (7.4-10.4); MONOCYTES 1.7 % (2-11); NEUTROPHILS 92.8 % (40-80); PLATELET COUNT 51 10x3/uL (130-400); RBC 3.41 10x6/uL (4.00-5.40); RDW 16.3 % (11.5-14.5); WBC 9.1 10x3/uL (4.8-10.8)
[2017-04-14 07:23] VITALS: BP 163/59
[2017-04-14 07:35] LABS: CARBON DIOXIDE 19.3 mmol/L (21.0-32.0); CREATININE - SERUM 3.1 mg/dL (0.6-1.3); MAGNESIUM - SERUM 1.4 mg/dL (1.8-2.4); PHOSPHOROUS 4.3 mg/dL (2.5-4.9)
[2017-04-14 07:41] LABS: ANION GAP 15.5 mmol/L (8-16); CALCIUM 6.9 mg/dL (8.5-10.1); POTASSIUM - SERUM 2.8 mmol/L (3.5-5.1)
[2017-04-14 12:09] VITALS: BP 150/56
[2017-04-14 16:10] VITALS: BP 137/48
[2017-04-14 21:38] VITALS: BP 130/51
--- NOTE | 2017-04-14 22:48 | NUR ---
[facility] PT DENIED ANY DISCOMFORT. ASSESSMENT COMPLETED AT 1940 HRS. VSS. SR PER CM HR 60. FOLEYDRAINING YELLOW URINE. ILEOSTOMY BAG INTACT. IV TO L CHEEST INFUSAPORT WITH D5NS WITH20 MEQ KCL AT 30CC/HR. IV PATNENT. IV TO R HAND SL. L NECK TRIALYSIS CLEAN, DRY AND INTACT. PT WEARS HOME CPAP AT HS. PM FSBS 290. 10 UNITS HUMALOG GUVEN SUB-Q TO UPPER R ARM. PM SNACK SERVED. PT HAD APICAL HR OF 60 WHEN BETAPACE 40MG PO GIVEN. PT CURRENTLY RESTING WITH EYES CLOSED. RESP EVEN AND REGULAR. SR UP X2, CALL LIGHT WITHIN REACH.
--- NOTE | 2017-04-15 00:16 | NUR ---
PT RESTING WITH EYES CLOSED. RESP EVEN AND REGULAR. SR UP X2, CALL LIGHT WITHIN REACH.
--- NOTE | 2017-04-15 02:31 | NUR ---
PT RESTING WITH EYES CLOSED. RESP EVEN AND REGULAR. SR UP X2, CALL LIGHT WITHIN REACH.
[2017-04-15 03:13] VITALS: BP 144/56
--- NOTE | 2017-04-15 04:41 | NUR ---
pt awake denies any discomfort. will continue to monitor.
--- NOTE | 2017-04-15 05:56 | NUR ---
AM LAB DRAWN VIA NURSE PORT OF L NECK TRIALYSIS. DRESSING CHANGE TO BUTTOCK DONE. WOUND TO BUTTOCK CREASE APPROX 15CM X2.5CM X2.5 CM. PT STATES HAS HAD ON AND OFF SINCE 1992 AND HAS BEEN MUCH LARGER. MEPILEX DRESSING APPLIED. WILL CONTINUE TO MONITOR. SR UP X2, CALL LIGHT WITHIN REACH.
[2017-04-15 06:07] LABS: BASOPHILS 0.1 % (0-2); EOSINOPHILS 0 % (0-7); HEMOGLOBIN 11.3 g/dL (12-16); IMMATURE GRANULOCYTES 0.4 % (0-5); LYMPHOCYTES 4.1 % (15-50); MCH 30.4 pg (26.0-34.0); MCHC 34.2 g/dL (31.0-37.0); MCV 88.7 fL (80.0-100.0); MEAN PLATELET VOLUME 9.9 fL (7.4-10.4); MONOCYTES 1.3 % (2-11); NEUTROPHILS 94.1 % (40-80); PLATELET COUNT 63 10x3/uL (130-400); RBC 3.72 10x6/uL (4.00-5.40); RDW 16.6 % (11.5-14.5)
[2017-04-15 06:34] LABS: ANION GAP 16.1 mmol/L (8-16); CALCIUM 7.3 mg/dL (8.5-10.1); CREATININE - SERUM 2.6 mg/dL (0.6-1.3); MAGNESIUM - SERUM 1.7 mg/dL (1.8-2.4); POTASSIUM - SERUM 3.1 mmol/L (3.5-5.1)
[2017-04-15 06:46] VITALS: BP 122/47
[2017-04-15 08:25] VITALS: BP 152/62
--- NOTE | 2017-04-15 11:11 | NUR ---
Patient Name: TIMO FUCHS Admission Status: ER Accout number: [id number] Admission Date: 04-08-2017 : 1960 Admission Diagnosis:SEPSIS, UNSPECIFIED ORGANISM Attending: MIGUELANGEL Current LOS: 7 Anticipated DC Date: Planned Disposition: Home with Home Health Primary Insurance: [facility] Discharge Planning Comments: CM met with patient along with sister & brother in law (Alissa & Lambert) to assess discharge planning/needs. Patient states that she lives alone, but her daughter (Isabela Johnson) [phone] comes helps her if she needs it. Patient also states that she is independent with her daily needs at home. Stated that her home environment is safe to return to and has 4 steps with a rail and if needed her family will build a ramp. Patient also stated that if she needed home health that she wanted a different one from before. List of local HH given to patient and patient and her family does not want [facility] or [facility]. Patient chose [facility] and JESSICA form signed. Patient stated that she has bedside commode, cpap, hospital bed, shower chair, walker, wheelchair and cane at home. She currently is set up with [facility] . CM will continue to follow and assist as needed with discharge planning/needs. PCP: Dr Suresh Pharmacy: [facility] DME: [facility] Isabela Johnson (daughter) [phone] Assistant Auto Center Manager: Ila Otto * Is the patient Alert and Oriented? Yes 0 * How many steps to enter\exit or inside your home? 3 0 * PCP Dr. Suresh 0 * Pharmacy [facility] 0 * Preadmission Environment Home Alone 0 * ADLs Independent 0 * Equipment Bedside Commode Cane CPAP Elevated [facility] Bed Rolling Walker Shower Chair Walker Wheelchair 0 * List name and contact numbers for known caregivers / representatives who currently or will assist patient after discharge: [facility] 0 * Community resources currently utilized Home Health 0 * Additional services required to return to the preadmission environment? Yes 0 * Can the patient safely return to the preadmission environment? Yes 0 * Has this patient been hospitalized within the prior 30 days at any hospital? Yes 0 Grand Total: 0
[2017-04-15 13:03] VITALS: BP 144/54
[2017-04-15 15:19] LABS: ADAMTS13 ACTIVITY 74 % (>66)
[2017-04-15 17:08] VITALS: BP 145/48
--- NOTE | 2017-04-15 19:21 | NUR ---
ALERT/AWAKE WATCHING TV. ON 02 AT 3L/NC RR 18 EVEN U/L. TRIALYSIS ON LEFT NECK C/D/I. LT CHEST IP WITH D5 20MEQ KCL INFUSING AT 30ML/HR. R HAND IV INTACT SL. ON TELEMETRY, MONITOR SHOWS 56 SB. GOMEZ DRAINING TO GRAVITY. STARTED BLADDER TRAINING PER ORDER. HAS CALL LIGHT IN REACH.
[2017-04-15 21:27] VITALS: BP 119/45
--- NOTE | 2017-04-15 23:17 | NUR ---
CHANGED ILEOSTOMY BAG. STATED FELT THE URGE TO URINATE. TOOK URINE SAMPLE FIRST FOR LAB ORDER AND THEN RELEASE BAND TO ALLOW URINE TO FLOW INTO BAG.
[2017-04-16 01:46] VITALS: BP 121/52
--- NOTE | 2017-04-16 05:00 | NUR ---
EMTIED GOMEZ AND RECLAMPED FOR BLADDER TRAINING. REQUESTED MORE ICE WATER.
[2017-04-16 06:07] LABS: BASOPHILS 0 % (0-2); EOSINOPHILS 0.4 % (0-7); HEMATOCRIT 31.5 % (36.0-48.0); HEMOGLOBIN 10.8 g/dL (12-16); IMMATURE GRANULOCYTES 0.5 % (0-5); LYMPHOCYTES 5.3 % (15-50); MCH 30.7 pg (26.0-34.0); MCHC 34.3 g/dL (31.0-37.0); MCV 89.5 fL (80.0-100.0); MONOCYTES 7.3 % (2-11); NEUTROPHILS 86.5 % (40-80); PLATELET COUNT 71 10x3/uL (130-400); RBC 3.52 10x6/uL (4.00-5.40); RDW 17.4 % (11.5-14.5); WBC 13.9 10x3/uL (4.8-10.8)
[2017-04-16 06:18] LABS: ANION GAP 15.7 mmol/L (8-16); CALCIUM 7.1 mg/dL (8.5-10.1); CARBON DIOXIDE 18.4 mmol/L (21.0-32.0); CREATININE - SERUM 2.6 mg/dL (0.6-1.3); MAGNESIUM - SERUM 1.7 mg/dL (1.8-2.4); POTASSIUM - SERUM 3.1 mmol/L (3.5-5.1)
[2017-04-16 06:24] VITALS: BP 108/51
[2017-04-16 09:00] VITALS: BP 126/49
--- NOTE | 2017-04-16 09:08 | HP ---
PATIENT: TIMO FUCHS MEDICAL RECORD: [id number] ACCOUNT: [id number] LOCATION:[facility] D.2109 : 60 ADMISSION DATE: 04/08/17 HISTORY AND PHYSICAL EXAMINATION DATE OF ADMISSION: 04/08/2017. CHIEF COMPLAINT: Encephalopathy, hyperkalemia, acute kidney injury on chronic kidney disease and liver failure. HISTORY OF PRESENT ILLNESS: This is a 56-year-old female who has been in and out of the hospital. She was hospitalized 03/05/2017 through 03/15/2017 for L1 compression fracture and peristomal cellulitis and was discharged to senior living for wound care. She came back into the hospital on 03/23/2017 with altered mental status. She had been found on previous admission to have hyperparathyroid adenoma and she was awaiting referral to surgery for that. She was discharged then on 03/31/2017 and went home this time. She had elevated ammonia level. She was restarted on her lactulose. She did undergo parathyroidectomy and did well postoperatively and was discharged home on 03/31/2017, only to come in now on 04/08/2017. I had just seen her 3 days prior to the admission in my office. She was doing great, her mental status was great. She was ____ she had felt in month, then she stopped eating and drinking for some reason she is not sure why and she was brought into the hospital on 04/08/2017. At that time, she was lethargic. Her sodium was 128, her potassium was up to 7.9. Her BUN was 124 and her creatinine was 10.8. She is admitted to the ICU for close evaluation and further evaluation by nephrology. PAST MEDICAL AND SURGICAL HISTORY: Again, just reported her recent hospitalizations, she has a history of ulcerative colitis, type 2 diabetes, history of ventral hernia repairs with multiple surgeries, depression, hyperlipidemia, hypertension, hidradenitis suppurativa as well as sleep apnea on CPAP, iron deficiency anemia, nonalcoholic hepatitis C with cirrhosis and history of peripheral neuropathy. PAST SURGICAL HISTORY: Colectomy and ileostomy due to ulcerative colitis and multiple ventral hernia repairs and ostomy revisions. ALLERGIES: TO SHABNAM INHIBITORS. SOCIAL HISTORY: , on disability. HABITS: Daily smoker. No alcohol or drug use. FAMILY HISTORY: Positive for diabetes. Her sister from, I believe lung cancer. Her parents had heart disease. HOME MEDICATIONS: Include amlodipine 5 mg once a day, citalopram 40 mg once a day, losartan 100 mg at bedtime, Protonix 40 mg twice a day, vitamin D 50,000 units once a week, gabapentin 200 mg twice a day and then 600 mg at bedtime, VESIcare 10 mg at bedtime, oxycodone 10 every 6 hours as needed for pain, Diflucan 100 mg daily (which was just started upon discharge her last hospitalization), lactulose 3 tablespoons 3 times a day, potassium 10 mEq once a day, sodium bicarbonate 650 mg twice a day. REVIEW OF SYSTEMS: HISTORY AND PHYSICAL [id number] TIMO FUCHS HEENT: No particular sinus or allergy problems. RESPIRATORY: No history of emphysema or asthma, though she is a long time smoker. CARDIAC: No history of coronary artery disease. GASTROINTESTINAL: She has ulcerative colitis and had colectomy and has ileostomy currently. She has had multiple ventral hernia repairs. MUSCULOSKELETAL: She had a compression fracture, has underwent kyphoplasty for that. NEUROLOGIC: No migraines or seizure disorders. PSYCHIATRIC: She has had some anxiety and depression. PHYSICAL EXAMINATION: VITAL SIGNS: Temperature 97.5, pulse was 89, respirations 18, blood pressure 130/44, O2 sat 98% on 4 liters nasal cannula. GENERAL: She is awake and alert in the ICU. She does not appear to be in acute distress. HEENT: Grossly within normal limits. NECK: Supple. No JVD or bruit. She has a fresh scar from recent parathyroidectomy. HEART: Regular rate and rhythm without murmur. LUNGS: Clear to auscultation. ABDOMEN: Obese. She has ileostomy bag noted just to the left of midline. She has multiple scars from ventral hernia repairs. EXTREMITIES: No edema. SKIN: She has multiple open wounds from hidradenitis, she has chronically. ADMISSION LABORATORY DATA: Sodium 128, potassium 7.9, chloride 97, CO2 was down to 8.3, BUN 124, creatinine 10.8, glucose 198, calcium was 7.2, alkaline phosphatase is high at 178, AST was 14, ALT was 7, total protein 9.1, albumin 2.7. CBC showed a white count of 27,000, hemoglobin 12.5, hematocrit 36.4, platelets number 147,000, 96% neutrophils. Lactic acid was high at 2.3. Ammonia was high at 71. Urine drug screen was negative for everything. Urinalysis is yellow, turbid, 2+ protein, 2+ blood, 2+ leukocyte esterase, 10-25 red blood cells, greater than 50 white blood cells, 0-5 epithelial cells, many bacteria. Arterial blood gas pH of 7.16, pCO2 of 24, pO2 was 393. ASSESSMENT: 1. Encephalopathy. 2. Hyperkalemia. 3. Acute kidney injury on chronic kidney disease. 4. Sepsis. PLAN: Blood and urine cultures are obtained. She is started on antibiotics. Nephrology has been consulted. General surgery was consulted for IV access and we will monitor closely in the ICU. Other tests and procedures as warranted. TRANSINT:[id number] Voice Confirmation ID: [id number] DOCUMENT ID: [id number] HISTORY AND PHYSICAL [id number] TIMO FUCHS WILLIAM MD at 0908 CC: [id number] DICTATION DATE: 04/16/1729 [employer]SC[employer]ING AND [employer]OUNDSK[employer]ING LABORER: 04/16/17 0255 ADM IN [facility] [address] [id number]
[2017-04-16 12:16] LABS: SPE - A/G RATIO 0.7 (0.7-1.7); SPE - ALBUMIN 2.2 g/dL (2.9-4.4); SPE - ALPHA-1 GLOBULIN 0.2 g/dL (0.0-0.4); SPE - ALPHA-2 GLOBULIN 0.6 g/dL (0.4-1.0); SPE - BETA GLOBULIN 0.7 g/dL (0.7-1.3); SPE - GAMMA GLOBULIN 1.8 g/dL (0.4-1.8); SPE - M-SPIKE Not Observed g/dL (Not Observed); SPE - TOTAL PROTEIN 5.4 g/dL (6.0-8.5)
[2017-04-16 12:30] VITALS: BP 115/42
[2017-04-16 13:17] LABS: IMMUNOFIXATION Note: (()); IMMUNOGLOBULIN A 414 mg/dL (87-352); IMMUNOGLOBULIN G 1777 mg/dL (700-1600); IMMUNOGLOBULIN M 154 mg/dL (26-217)
[2017-04-16 16:05] VITALS: BP 114/55
--- NOTE | 2017-04-16 18:00 | NUR ---
ALERT AND ORIENTED X4. LAYING IN BED. FAMILY AT BEDSIDE. DC GOMEZ BULB INTACT. ENCOURAGE TO CALL FOR HELP WHEN NEEDING TO USE RESTROOM. DC LT IJ TRIALYSIS TIP INTACT. PRESSURE HELD FOR 15MINS. PRESSURE DRESSING APPLIED TO PUNCTURE SITE. NO SIGNS OF BLEEDING. NO HEMATOMA. PREPARE SHIFT CHANGE REPORT. INITIATE PAIN MANAGEMENT ORDERED. BUTTOCK/COCCYX DRESSING CHANGED WET TO DRY. CONTINUE PLAN OF CARE AND SAFETY PRECAUTIONS.
--- NOTE | 2017-04-16 19:36 | NUR ---
ALERT/AWAKE DENIES ANY NEEDS OR PAIN. LT CHEST IP WITH IVF INFUSING AT 30ML/HR. TELEMETRY SHOWS 59 SB ON MONITOR. HAS CALL LIGHT IN REACH.
--- NOTE | 2017-04-16 21:00 | NUR ---
ADMIN SCHED MEDS. CHECKED BS AT 164, ADMIN HUMALOG 4 UNITS. REQUESTED ASSISTANCE TO BSC TO VOID. EMPTIED ILEOSTOMY BAD 200CC.
[2017-04-16 21:07] VITALS: BP 110/46
[2017-04-17 01:38] VITALS: BP 105/42
--- NOTE | 2017-04-17 04:32 | NUR ---
CHANGED OSTOMY BAG DUE TO LEAKAGE. DOCK COORDINATOR CHANGED BEDDING AND GOWN.
[2017-04-17 05:32] VITALS: BP 91/56
[2017-04-17 06:16] LABS: BASOPHILS 0 % (0-2); EOSINOPHILS 0.9 % (0-7); HEMOGLOBIN 10.9 g/dL (12-16); IMMATURE GRANULOCYTES 0.5 % (0-5); LYMPHOCYTES 6.6 % (15-50); MCH 30.8 pg (26.0-34.0); MCHC 34.1 g/dL (31.0-37.0); MCV 90.4 fL (80.0-100.0); MEAN PLATELET VOLUME 10.6 fL (7.4-10.4); MONOCYTES 6.3 % (2-11); NEUTROPHILS 85.7 % (40-80); RBC 3.54 10x6/uL (4.00-5.40)
[2017-04-17 06:23] LABS: PLATELET COUNT 91 10x3/uL (130-400); WBC 18.3 10x3/uL (4.8-10.8)
[2017-04-17 06:33] LABS: ANION GAP 17.1 mmol/L (8-16); CALCIUM 7.1 mg/dL (8.5-10.1); CARBON DIOXIDE 14.5 mmol/L (21.0-32.0); MAGNESIUM - SERUM 1.5 mg/dL (1.8-2.4)
[2017-04-17 06:40] LABS: POTASSIUM - SERUM 3.6 mmol/L (3.5-5.1)
--- NOTE | 2017-04-17 07:40 | NUR ---
PATIENT IS AWAKE AND ALERT, DENIES NEEDS. FRESH ICE WATER GIVEN. DISCUSSED THE PLAN FOR THE DAY. SHE WALKS WITH PT IN THE HALLS. SHE HAS A DAILY DRESSING CHANGE AND ANTIBIOTICS. HER CALL LIGHT IS WITHIN HER REACH. SHE IS ALERT AND ORIENTED.
[2017-04-17 07:47] VITALS: BP 98/55
--- NOTE | 2017-04-17 09:25 | NUR ---
PATIENT GIVEN HER MORNING MEDICAITONS. SHE DRANK ALL OF HER CHRONULAC. SHE IS TALKATIVE AND FRIENDLY. FRESH ICE WATER GIVEN. DISCUSSED WOUND CARE. WILL CHANGE SACRAL DRESSING. SHE STATES THAT SHE IS ISIDRO TO GET UP TO THE BEDSIDE COMMODE WITHOUT ASSISTANCE. STRAIGHTENED HER THINGS AND ARRANGED FOR COMFORT, AND TO ALLOW HER TO REACH THEM EASIER.
--- NOTE | 2017-04-17 09:40 | NUR ---
PATIENT IS AWAKE AND ALERT. SHE REQUESTS FRESH ICE WATER. GIVEN. DENIES PAIN/NEEDS.
[2017-04-17 11:40] VITALS: BP 99/31
--- NOTE | 2017-04-17 12:00 | NUR ---
HUMALOG GIVEN. WOUND TO THE BUTTOCKS AREA CLEANED WITH WOUND TRUCK BODY BUILDER AND COVERED WITH A DRY DRESSING. ALSO EMPTIED 450CC OF LIQUID STOOD FROM THE ILIOSTOMY.
--- NOTE | 2017-04-17 14:37 | NUR ---
Nutrition follow-up: Diet changed to regular per renal PO intake is now 100% of meals labs reviewed Wt: 198# ostomy working RDN following.
--- NOTE | 2017-04-17 14:50 | NUR ---
PATIENT REQUESTS TO SEE A NOTERY. CALL TO MEDICAL RECORDS TO [facility] SOMEONE.
[2017-04-17 15:54] VITALS: BP 98/48
[2017-04-17 20:44] VITALS: BP 91/30
[2017-04-18 03:47] VITALS: BP 96/42
[2017-04-18 07:28] LABS: BASOPHILS 0.1 % (0-2); EOSINOPHILS 1.6 % (0-7); HEMATOCRIT 29.1 % (36.0-48.0); HEMOGLOBIN 9.7 g/dL (12-16); IMMATURE GRANULOCYTES 0.3 % (0-5); LYMPHOCYTES 7.8 % (15-50); MCH 30.3 pg (26.0-34.0); MCHC 33.3 g/dL (31.0-37.0); MCV 90.9 fL (80.0-100.0); MEAN PLATELET VOLUME 10.6 fL (7.4-10.4); MONOCYTES 7.3 % (2-11); NEUTROPHILS 82.9 % (40-80); PLATELET COUNT 83 10x3/uL (130-400); RDW 17.9 % (11.5-14.5); WBC 13.1 10x3/uL (4.8-10.8)
[2017-04-18 07:59] LABS: ANION GAP 16.1 mmol/L (8-16); CARBON DIOXIDE 15.3 mmol/L (21.0-32.0); CREATININE - SERUM 3.1 mg/dL (0.6-1.3); MAGNESIUM - SERUM 1.4 mg/dL (1.8-2.4); POTASSIUM - SERUM 3.4 mmol/L (3.5-5.1)
[2017-04-18 08:34] VITALS: BP 126/48
--- NOTE | 2017-04-18 08:54 | NUR ---
AM ROUNDS - PT IS AWAKE SITTING UP IN BED. MONITOR SHOWING SR, HR 60. PT HAS YELLOW BAND AND SCDS ON. IV TO RIGHT HAND, SL. LEFT CHEST INFUSAPORT WITH D5NS WITH 20K+ AT 30CC/HR. ILIOSTOMY TO LEFT SIDE, DRAINING. NO FUTHER NEEDS AT THIS TIME. WILL CONTINUE TO MONITOR
[2017-04-18 11:53] VITALS: BP 100/45
[2017-04-18 15:32] VITALS: BP 103/46
[2017-04-18 20:00] VITALS: BP 109/37
--- NOTE | 2017-04-18 23:48 | NUR ---
PT AWAKE, ALERT, ORIENTED, DENIES ANY NEEDS. CONTINUE TO MONITOR CLOSELY. BED LOW, CALL LIGHT IN REACH, SIDE RAILS X 2, HOB FLAT. PT TO CALL WHEN NEEDING ANY ASSISTANCE.
[2017-04-19] VITALS: BP 112/47
[2017-04-19 04:00] VITALS: BP 101/42
[2017-04-19 06:52] LABS: BASOPHILS 0 % (0-2); EOSINOPHILS 1.6 % (0-7); HEMATOCRIT 31.3 % (36.0-48.0); HEMOGLOBIN 10.4 g/dL (12-16); IMMATURE GRANULOCYTES 0.2 % (0-5); LYMPHOCYTES 6.6 % (15-50); MCH 30.5 pg (26.0-34.0); MCHC 33.2 g/dL (31.0-37.0); MCV 91.8 fL (80.0-100.0); MEAN PLATELET VOLUME 10.8 fL (7.4-10.4); MONOCYTES 5.8 % (2-11); NEUTROPHILS 85.8 % (40-80); PLATELET COUNT 97 10x3/uL (130-400); RBC 3.41 10x6/uL (4.00-5.40); RDW 18.3 % (11.5-14.5); WBC 11.7 10x3/uL (4.8-10.8)
[2017-04-19 07:12] LABS: ANION GAP 13.1 mmol/L (8-16); CALCIUM 7.5 mg/dL (8.5-10.1); CARBON DIOXIDE 16.5 mmol/L (21.0-32.0); CREATININE - SERUM 2.7 mg/dL (0.6-1.3); MAGNESIUM - SERUM 1.4 mg/dL (1.8-2.4); POTASSIUM - SERUM 3.6 mmol/L (3.5-5.1)
[2017-04-19 08:03] VITALS: BP 96/55
--- NOTE | 2017-04-19 08:12 | NUR ---
AM ROUNDS - PT APPEARS TO BE SLEEPING ON LEFT SIDE WITH EQUAL AND NON LABORED BREATHING. D5NS WITH 20K+ AT 30CC/HR INFUSSING. WILL CONTINUE TO MONITOR.
[2017-04-19 11:48] VITALS: BP 103/54
[2017-04-19 15:38] VITALS: BP 113/47
--- NOTE | 2017-04-19 19:20 | NUR ---
ALERT/AWAKE DENIES PAIN OR ANY NEEDS. L CHEST IP WITH IVF INFUSING AT 30 ML/HR. LYING ON RIGHT SIDE. TELEMETRY SHOWS 64 SR ON MONITOR. HAS CALL LIGHT IN REACH FOR ANY NEEDS.
[2017-04-19 20:00] VITALS: BP 104/43
--- NOTE | 2017-04-19 21:59 | NUR ---
ADMIN SCHED MEDS AND 2 UNITS HUMALOG FOR BS 151. EMPTIED ILEOSTOMY BAG 200CC.
[2017-04-20] VITALS: BP 96/47
--- NOTE | 2017-04-20 00:30 | NUR ---
RESTING WITH EYES CLOSED WITH CPAP MASK ON. NO S/S OF PAIN OR DISCOMFORT. CALL LIGHT IN REACH.
--- NOTE | 2017-04-20 02:03 | NUR ---
CAN INSPECTOR ASSISTED TO BSC TO VOID. NO OTHER NEEDS VOICED.
[2017-04-20 04:00] VITALS: BP 106/46
[2017-04-20 04:25] LABS: BASOPHILS 0 % (0-2); EOSINOPHILS 1.5 % (0-7); HEMATOCRIT 26.9 % (36.0-48.0); HEMOGLOBIN 8.9 g/dL (12-16); IMMATURE GRANULOCYTES 0.2 % (0-5); LYMPHOCYTES 10.1 % (15-50); MCH 30.4 pg (26.0-34.0); MCHC 33.1 g/dL (31.0-37.0); MCV 91.8 fL (80.0-100.0); MEAN PLATELET VOLUME 10.1 fL (7.4-10.4); MONOCYTES 6.2 % (2-11); PLATELET COUNT 91 10x3/uL (130-400); RBC 2.93 10x6/uL (4.00-5.40); RDW 18.5 % (11.5-14.5); WBC 10.3 10x3/uL (4.8-10.8)
[2017-04-20 04:41] LABS: CALCIUM 7.1 mg/dL (8.5-10.1); CARBON DIOXIDE 13.3 mmol/L (21.0-32.0); CREATININE - SERUM 2.5 mg/dL (0.6-1.3)
[2017-04-20 04:50] LABS: POTASSIUM - SERUM 4.3 mmol/L (3.5-5.1)
--- NOTE | 2017-04-20 06:41 | NUR ---
ADMIN SCHED MED WITH SIPS OF WATER AND HUMALOG 4 UNITS FOR BS 153. DENIES ANY OTHER NEEDS OR DISCOMFORTS.
--- NOTE | 2017-04-20 07:59 | NUR ---
AM ROUNDS - PT APPEARS TO BE SLEEPING WITH EQUAL AND NON LABORED BREATHING. MONITOR SHOWING SR, HR 59. LEFT CHEST INFUSAPORT D5NS WITH 20K+ @ 30CC/HR. CPAP ON. WILL CONTINUE TO MONITOR
[2017-04-20 08:00] VITALS: BP 103/42
[2017-04-20] MEDS ORDERED: MAG-OX 400 MG400 MG PO (09:42)
[2017-04-20] MEDS ORDERED: BETAPACE 80 MG80 MG PO (09:44)
[2017-04-20] MEDS ORDERED: CHRONULAC30 ML PO (09:44)
[2017-04-20 12:00] VITALS: BP 94/44
--- NOTE | 2017-04-20 14:35 | NUR ---
Patient for discharge today. She has selected [facility] for services. CM confirmed contact phone number. Spoke with Steffany, the front man nurse for [facility]. They will call the patient on Saturday to arrange for the visit Saturday. Patient states "that works for me". JOHNNIE faxed MD orders, H/P, consults and discharge orders to [phone]. Contact phone number for [facility] is .
--- NOTE | 2017-04-20 14:36 | NUR ---
Plan for discharge today. Family at the bedside.
--- NOTE | 2017-04-20 15:28 | NUR ---
D/C - WRITTEN AND VERBAL INSTRUCTIONS GIVEN TO PT AND FAMILY MEMBER. IV IN RIGHT HAND D/C. CATH TIP INTACT. PLACED 2X2 DRESSING AND SECURED WITH TAPE. FLUSHED INFUSAPORT WITH 3CC HEPRIN AND REMOVED FROM PORT. APPLIED 2X2 DRESSING AND SECURED WITH TEGRADERM. PT TOLERATED WELL. PT LEFT FLOOR VIA WHEELCHAIR BY APPLICATIONS PROCESSOR. WILL D/C
== END 2017-04-20 15:36 | disposition home health service (06) | DRG 441 ==
LOC: D.ER 21:12 → D.M2 04-08 01:12 → D.ICU 04-08 01:12 → D.M2 04-10 19:12
PROVIDERS: Family Medicine; Internal Medicine Nephrology; Legal Medicine; ADMIT Family Medicine
PROC: 0T9B70Z Drainage of Bladder with Drainage Device, Via Natural or Artificial Opening (ICD-10-PCS; 2017-04-07)
PROC: 02HV33Z Insertion of Infusion Device into Superior Vena Cava, Percutaneous Approach (ICD-10-PCS; principal; 2017-04-08)
PROC: B548ZZA Ultrasonography of Superior Vena Cava, Guidance (ICD-10-PCS; 2017-04-08)
PROC: 5A1D60Z (ICD-10-PCS; 2017-04-08)
DX: K72.90 Hepatic failure, unspecified without coma (principal); G93.40 Encephalopathy, unspecified; R57.1 Hypovolemic shock; N17.9 Acute kidney failure, unspecified; K51.90 Ulcerative colitis, unspecified, without complications; D62 Acute posthemorrhagic anemia; K74.60 Unspecified cirrhosis of liver; E87.5 Hyperkalemia; E11.40 Type 2 diabetes mellitus with diabetic neuropathy, unspecified; I10 Essential (primary) hypertension; I73.9 Peripheral vascular disease, unspecified; B19.20 Unspecified viral hepatitis C without hepatic coma; I48.91 Unspecified atrial fibrillation; F41.8 Other specified anxiety disorders; E83.51 Hypocalcemia; N30.90 Cystitis, unspecified without hematuria; Z72.0 Tobacco use; D69.6 Thrombocytopenia, unspecified

== ENCOUNTER 2017-04-25 14:41 | Inpatient (IN) | payer MEDICARE, MEDICAID ==
[~2017-04-25] VITALS: Ht 157.5 cm; Wt 72.7 kg
[~2017-04-25 14:41] MED LIST changes: +BETAPACE 80 MG80 MG PO; +MAG-OX 400 MG400 MG PO
[2017-04-25 15:38] LABS: BASOPHILS 0 % (0-2); EOSINOPHILS 0.6 % (0-7); HEMATOCRIT 31.4 % (36.0-48.0); HEMOGLOBIN 10.4 g/dL (12-16); IMMATURE GRANULOCYTES 0.2 % (0-5); LYMPHOCYTES 5.3 % (15-50); MCH 30.8 pg (26.0-34.0); MCHC 33.1 g/dL (31.0-37.0); MCV 92.9 fL (80.0-100.0); MEAN PLATELET VOLUME 10.2 fL (7.4-10.4); NEUTROPHILS 89.9 % (40-80); PLATELET COUNT 76 10x3/uL (130-400); RBC 3.38 10x6/uL (4.00-5.40); RDW 19.2 % (11.5-14.5); WBC 8.5 10x3/uL (4.8-10.8)
[2017-04-25 15:50] LABS: ALBUMIN 2.2 g/dL (3.4-5.0); ALKALINE PHOSPHATASE 142 U/L (46-116); ALT (SGPT) 15 U/L (10-68); BILIRUBIN - TOTAL 0.79 mg/dL (0.2-1.3); CALC OSMOLALITY 297 mosm/kg (275-300); CALCIUM 8.4 mg/dL (8.5-10.1); CARBON DIOXIDE 10.2 mmol/L (21.0-32.0); CHLORIDE - SERUM 114 mmol/L (98-107); CREATININE - SERUM 3.1 mg/dL (0.6-1.3); GLUCOSE 167 mg/dL (74-106); POTASSIUM - SERUM 5.1 mmol/L (3.5-5.1); PROTEIN - SERUM 7.1 g/dL (6.4-8.2); SODIUM 140 mmol/L (136-145); UREA NITROGEN 55 mg/dL (7-18); eGFR NON AFRICAN AMERICAN 16 mL/min (90-120)
[2017-04-25 15:51] LABS: APPEARANCE CLEAR (CLEAR); COLOR YELLOW (YELLOW)
[2017-04-25 15:52] LABS: BILIRUBIN NEGATIVE (NEGATIVE); GLUCOSE NEGATIVE (NEGATIVE); KETONE NEGATIVE (NEGATIVE); LEUKOCYTE ESTERASE TRACE (NEGATIVE); NITRITE NEGATIVE (NEGATIVE); PROTEIN 1+ mg/dL (NEGATIVE); UROBILINOGEN NORMAL (NORMAL)
[2017-04-25 15:53] LABS: BACTERIA FEW /hpf (NONE SEEN); CREATINE KINASE 30 UL (21-215); EPITHELIAL CELLS 0-5 /hpf (0-5); RED CELL CAST RARE /lpf (NONE SEEN); RED CELLS - URINE 0-5 /hpf (0-5); TROPONIN-I < 0.017 ng/mL (0.000-0.060); WHITE CELLS - URINE 0-5 /hpf (0-5)
[2017-04-25 16:21] LABS: PLATELET ESTIMATE DECREASED
[2017-04-26] VITALS: BP 114/76
[2017-04-26 01:15] VITALS: BP 115/59; BMI 29.4
[2017-04-26 04:00] VITALS: BP 124/50
[2017-04-26 04:40] LABS: ALBUMIN 2.3 g/dL (3.4-5.0); ANION GAP 22.2 mmol/L (8-16); BILIRUBIN - DIRECT 0.27 mg/dL (0.00-0.30); BILIRUBIN - INDIRECT 0.51 mg/dL (0.00-1.00); BILIRUBIN - TOTAL 0.78 mg/dL (0.2-1.3); CALCIUM 8.7 mg/dL (8.5-10.1); CARBON DIOXIDE 10.8 mmol/L (21.0-32.0); CREATININE - SERUM 3.3 mg/dL (0.6-1.3); PROTEIN - SERUM 7.2 g/dL (6.4-8.2)
--- NOTE | 2017-04-26 07:40 | NUR ---
PT AOX4 RESP EVEN AND NONLABORED IV TO LEFT CHEST PORT PATENT AND INTACT PT DENIES NEEDS AT THIS TIME. SRX2 BED IN LOWEST SETTING WILL CONTINUE TO MONITOR
[2017-04-26 08:15] VITALS: BP 95/66
--- NOTE | 2017-04-26 09:50 | NUR ---
Patient Name: TIMO FUCHS Admission Status: ER Accout number: [id number] Admission Date: 04-25-2017 : 1960 Admission Diagnosis: Attending: MIGUELANGEL Current LOS: 1 Anticipated DC Date: 04-29-2017 Planned Disposition: Home with Home Health Primary Insurance: [facility] Discharge Planning Comments: CM MET WITH PATIENT REGARDING D/C NEEDS AND PLANS. PATIENT STATED SHE LIVES ALONE AND HER DAUGHTER CHECKS ON HER OFTEN AND HELPS IF NEEDED. PATIENT STATED HER HOME IS SAFE AND HAS 4 STEPS W/RAILS TO ENTER AND NO STAIRS INSIDE. PATIENT STATED HER DAUGHTER WILL DRIVE HER HOME AT DISCHARGE. PATIENT IS INDEPENDENT WITH HER CARE AND HAS A WALKER, WHEELCHAIR, SHOWER CHAIR, BS COMMODE, CANE, C-PAP, AND HOSPITAL BED AT HOME. PATIENTS PCP IS DR. MORAN AND [facility]AC[facility]. PATIENT IS CURRENT WITH [facility]. CM WILL CONTINUE TO FOLLOW PATIENT WITH D/C NEEDS AND PLANS. PCP DR[facility] [phone] VIVIANA SHEARER (DAUGHTER) [phone] Hand Profiler: Fabiola Jaclyn Is the patient Alert and Oriented? Yes 0 * How many steps to enter\exit or inside your home? 4 W/RAILS 0 * PCP DR. MORAN 0 * [facility]acy [facility] 0 * Preadmission Environment Home Alone 0 * ADLs Independent 0 * Equipment Bedside Commode Cane CPAP Hospital Bed Shower Chair Walker Wheelchair 0 * List name and contact numbers for known caregivers / representatives who currently or will assist patient after discharge: VIVIANA SHEARER (DAUGHTER) [phone] 0 * Community resources currently utilized Home Health 0 * Please name any agencies selected above. [facility] 0 * Additional services required to return to the preadmission environment? Yes 0 * Can the patient safely return to the preadmission environment? Yes 0 * Has this patient been hospitalized within the prior 30 days at any hospital? Yes 0 Grand Total: 0
[2017-04-26 12:28] VITALS: BP 109/47
[2017-04-26 13:14] VITALS: Ht 157.5 cm; Wt 72.7 kg
--- NOTE | 2017-04-26 19:00 | NUR ---
PATIENT RESTING ON LEFT SIDE WITH EYES CLOSED. HOB 30 DEGREES. AROUSES TO VOICE. RR EVEN AND UNLABORED. 0 S/S OF DISTRESS. DENIES PAIN AT THIS TIME. LEFT PORT PATENT WITH DRESSING CDI. COLOSTOME TO LLQ. SCD'S IN ROOM BUT OFF. B/A ON. SRX2. BED LOW. CALL LIGHT WITHIN REACH.
[2017-04-26 20:00] VITALS: BP 118/49
--- NOTE | 2017-04-26 20:35 | NUR ---
PATIENT WAS ATTEMPTING TO VOID ON BEDPAN AND WAS UNABLE. STATED SHE HAS NOT VOIDED SINCE SHE GOT HERE. BLADDER SCAN SHOWED 560ML. SPOKE WITH DR. MORAN AND INSERTED GOMEZ PER TELEPHONE ORDER.
--- NOTE | 2017-04-26 23:05 | NUR ---
NIGHTTIME MEDS GIVEN. REPOSITIONED PATIENT TO RIGHT SIDE.
[2017-04-27] VITALS: BP 112/74
[2017-04-27 04:00] VITALS: BP 97/47
--- NOTE | 2017-04-27 05:00 | NUR ---
PATIENT'S COLOSTOMY BAG LEAKING. BAG CHANGED. BATH GIVEN. LINENS AND GOWN CHANGED.
[2017-04-27 05:32] LABS: BASOPHILS 0.1 % (0-2); EOSINOPHILS 2.4 % (0-7); HEMATOCRIT 28.3 % (36.0-48.0); HEMOGLOBIN 9.6 g/dL (12-16); IMMATURE GRANULOCYTES 0.1 % (0-5); LYMPHOCYTES 20.5 % (15-50); MCH 31.2 pg (26.0-34.0); MCHC 33.9 g/dL (31.0-37.0); MCV 91.9 fL (80.0-100.0); MEAN PLATELET VOLUME 9.9 fL (7.4-10.4); MONOCYTES 5.4 % (2-11); NEUTROPHILS 71.5 % (40-80); PLATELET COUNT 74 10x3/uL (130-400); RBC 3.08 10x6/uL (4.00-5.40); RDW 19.2 % (11.5-14.5); WBC 7.5 10x3/uL (4.8-10.8)
[2017-04-27 05:33] LABS: CALCIUM 8.1 mg/dL (8.5-10.1); CREATININE - SERUM 3.9 mg/dL (0.6-1.3)
[2017-04-27 05:42] LABS: ANION GAP 17.2 mmol/L (8-16); CARBON DIOXIDE 16.2 mmol/L (21.0-32.0); POTASSIUM - SERUM 3.4 mmol/L (3.5-5.1)
--- NOTE | 2017-04-27 07:30 | NUR ---
PT AOX1 CONFUSED AT TIMES RESP EVEN AND NONLABORED IV TO LEFT CHEST PORT PATENT AND INTACT AT THIS TIME SRX2 BED AT LOWEST SETTING CALL LIGHT WITHIN REACH WILL CONTINUE TO MONITOR
[2017-04-27 08:18] VITALS: BP 90/37
[2017-04-27 13:25] VITALS: BP 120/42
[2017-04-27 16:01] VITALS: BP 99/46
[2017-04-27 20:00] VITALS: BP 115/56; BP 167/78
[2017-04-28] VITALS: BP 110/49
[2017-04-28 04:00] LABS: BASOPHILS 0.1 % (0-2); EOSINOPHILS 2.1 % (0-7); HEMATOCRIT 28.5 % (36.0-48.0); HEMOGLOBIN 9.9 g/dL (12-16); IMMATURE GRANULOCYTES 0.1 % (0-5); LYMPHOCYTES 22.2 % (15-50); MCH 31.5 pg (26.0-34.0); MCHC 34.7 g/dL (31.0-37.0); MCV 90.8 fL (80.0-100.0); MEAN PLATELET VOLUME 9.4 fL (7.4-10.4); MONOCYTES 8.7 % (2-11); NEUTROPHILS 66.8 % (40-80); PLATELET COUNT 72 10x3/uL (130-400); RBC 3.14 10x6/uL (4.00-5.40); RDW 18.9 % (11.5-14.5); WBC 7.8 10x3/uL (4.8-10.8)
[2017-04-28 04:13] VITALS: BP 92/50
[2017-04-28 04:23] LABS: ANION GAP 14.8 mmol/L (8-16); CALCIUM 7.8 mg/dL (8.5-10.1); CREATININE - SERUM 4.5 mg/dL (0.6-1.3)
[2017-04-28 04:38] LABS: CARBON DIOXIDE 22.2 mmol/L (21.0-32.0)
--- NOTE | 2017-04-28 07:35 | NUR ---
PT SLOW TO RESPOND THIS MORNING, AOX4 WHEN AWAKEN. RESP EVEN AND NONLABORED IV TO LEFT CHEST PORT PATENT AND INTACT PT DENIES NEEDS AT THIS TIME. SRX2 BED IN LOWEST SETTING CALL LIGHT WITHIN REACH WILL CONTINUE TO MONITOR
[2017-04-28 08:23] VITALS: BP 101/37
--- NOTE | 2017-04-28 08:29 | NUR ---
PT CRITICAL AMMONIA LEVEL [address]ORAN AND HIS CALL BACK STATES "I WILL DEAL WITH IT WHEN I GET THERE."
--- NOTE | 2017-04-28 08:45 | NUR ---
THIS NURSE CALLED FOR RAPID RESPONSE TEAM FOR DECREASED LOC AT THIS TIME. PT UNABLE TO SAY A WORD AT THIS TIME. PT PUPILS DIALATED AND FIXED. VITAL SIGNS WNL. WITH CRITICAL ELEVATED AMMONIA. PETROS FROM ICU HERE AND HELPING NOTIFIED AND ORDERS RECEIVED AT THIS TIME. FAMILY NOTIFIED
[2017-04-28 09:08] LABS: BASOPHILS 0.1 % (0-2); EOSINOPHILS 1.8 % (0-7); HEMATOCRIT 28.2 % (36.0-48.0); HEMOGLOBIN 9.6 g/dL (12-16); IMMATURE GRANULOCYTES 0.3 % (0-5); LYMPHOCYTES 18.1 % (15-50); MCH 31.2 pg (26.0-34.0); MCV 91.6 fL (80.0-100.0); MEAN PLATELET VOLUME 9.7 fL (7.4-10.4); MONOCYTES 7.9 % (2-11); NEUTROPHILS 71.8 % (40-80); PLATELET COUNT 71 10x3/uL (130-400); RBC 3.08 10x6/uL (4.00-5.40); RDW 18.7 % (11.5-14.5); WBC 6.7 10x3/uL (4.8-10.8)
[2017-04-28 09:17] LABS: ANION GAP 14.8 mmol/L (8-16); CALCIUM 7.9 mg/dL (8.5-10.1); CARBON DIOXIDE 22.2 mmol/L (21.0-32.0); CREATININE - SERUM 4.5 mg/dL (0.6-1.3)
[2017-04-28 12:55] VITALS: BP 98/37
[2017-04-28 15:28] LABS: ERYTHROCYTE SEDIMENTATION RATE 70 mm/hr (0-30)
[2017-04-28 16:58] VITALS: BP 97/45
[2017-04-28 19:00] VITALS: BP 104/44
--- NOTE | 2017-04-28 20:00 | NUR ---
REC'D IN BED AROUSED TO VOICE. RESP EVEN AND UNLABORED WITH ON DISTRESS NOTED. NO C/O NOTED OR VOICED AT THIS TIME. ASSESSMENT COMPLETED. C/L IN REACH AT BEDSIDE.
--- NOTE | 2017-04-28 21:08 | HP ---
PATIENT: TIMO FUCHS MEDICAL RECORD: [id number] ACCOUNT: [id number] LOCATION:D.[id number] ADMISSION DATE: 04/25/17 HISTORY AND PHYSICAL EXAMINATION Admission History and Physical DATE OF ADMISSION: 04/25/2017 REASON FOR ADMISSION: Generalized weakness, encephalopathy due to hyperammonemia. HISTORY OF PRESENT ILLNESS: This is a 56-year-old female with multiple medical problems. She has been in and out of the hospital now for the fourth time since March 05. She lives alone, her daughter went to her house to check on her and make sure she is taking her medications properly, daughter helped her to the bathroom realized how weak she was, so she called EMS. She was brought to the ER where her vital signs were stable at that point. LABORATORY DATA: Her white count was normal and her hemoglobin was 10.4, potassium was 5.1, BUN and creatinine of 55 and 3.1 respectively, which is a little high for her. Her liver functions were normal, but her ammonia level had come back up to 106. Urinalysis looks fairly clear. She is admitted for encephalopathy. PAST MEDICAL AND SURGICAL HISTORY: The patient was admitted from March 05 to March 15 for L1 compression fracture and treatment. She also had peristomal cellulitis. When she was discharged on March 23, she was [facility]. She was readmitted here on March 23 for altered mental status during the previous hospitalization workup for hypercalcemia was ongoing and she was found to have a parathyroid adenoma. She had hypercalcemia. She had a parathyroidectomy during the second hospitalization. Her numbers got better. She was restarted on lactulose for her ammonia and discharged home on March 31 with home health. She was readmitted on April 08 after she all of a sudden stopped eating and drinking. She was lethargic. Her BUN and creatinine were 124 and 10.8. Upon admission, her sodium was 128. Her potassium was 7.9. Urine drug screen was negative. Her white count was 27,000. She underwent hemodialysis once to get her creatinine down. Her echocardiogram was okay. Blood cultures during that visit were negative. Urine culture did grow out Klebsiella and enterococcus and Donna and she was treated for urosepsis. She underwent oncology consultation at that time for anemia, thrombocytopenia and it is felt that was due to her illness. Her ammonia went down to 40. Her creatinine went down to 2.5. She was slowly restarted on medications. Alert and oriented, walking and eating and discharged home with home health on April 20 and she reappears on April 25 now with worsening encephalopathy. Family states that she has not missed any doses of her lactulose. PAST MEDICAL HISTORY: She has had ulcerative colitis, type 2 diabetes, depression, hyperlipidemia, hypertension, hidradenitis suppurativa as well as sleep apnea on CPAP. She has had iron deficiency anemia. She has a history of nonalcoholic hepatitis C with cirrhosis and history of peripheral neuropathy. PAST SURGICAL HISTORY: She underwent colectomy and ileostomy due to her ulcerative colitis. She has had multiple ventral hernia repairs and ostomy HISTORY AND PHYSICAL [id number] TIMO FUCHS revision since then. Again, she had the parathyroidectomy as mentioned above. ALLERGIES: SHABNAM INHIBITORS. SOCIAL HISTORY: Lives alone on disability. HABITS: Daily smoker. No alcohol or drug use. FAMILY HISTORY: Positive for diabetes, sister from lung cancer. Parents had heart disease. HOME MEDICATIONS: Include Citalopram 40 mg at bedtime, Neurontin 200 mg at 9:00 a.m. and 3:00 p.m. and 600 mg at bedtime, Percocet 4 times a day p.r.n. pain, lactulose 2 tablespoons t.i.d., potassium chloride 10 mEq once a day, pantoprazole 40 mg b.i.d., sodium bicarbonate 650 mg twice a day, VESIcare 10 mg daily, vitamin D 50,000 units once a week, on Mag-Ox 400 mg twice a day. REVIEW OF SYSTEMS: GENERAL: She has had some weight loss throughout her last hospitalizations. HEENT: No particular sinus or allergy problems. RESPIRATORY: No diagnosis of emphysema or asthma, though she is a long time smoker. CARDIAC: No history of coronary artery disease. GASTROINTESTINAL: Ulcerative colitis, status post colectomy and ileostomy, multiple ventral hernia repairs. MUSCULOSKELETAL: Compression fracture at neither L1 or T12 and she underwent kyphoplasty for that. NEUROLOGIC: No migraines or seizures. PSYCHIATRIC: Has anxiety and depression. PHYSICAL EXAMINATION: VITAL SIGNS: Today, temperature 98.6, pulse 67, respirations 19, blood pressure 113/85 GENERAL: She was easily arousable, but a little lethargic. She is not sure why this is happening to her. HEENT: Grossly within normal limits. NECK: Supple. HEART: Regular rate and rhythm without murmur. LUNGS: Clear. ABDOMEN: With ileostomy noted to the left of midline, multiple surgical scars from ventral hernia repairs. ABDOMEN: Soft, nontender. EXTREMITIES: No edema. LABORATORY DATA: CBC with a white count of 8500, hemoglobin 10.4, hematocrit 31.4, platelets number is 76,000. Basic metabolic panel: Sodium 140, potassium 5.1, chloride 114, CO2 of 10.2. BUN and creatinine of 55 and 3.1 respectively. Glucose 167, calcium 8.4. LFTs were okay. Ammonia level of 106. Urinalysis yellow, clear, 1+ protein, trace blood, trace leukocyte esterase, few bacteria. ASSESSMENT: 1. Encephalopathy. 2. History of nonalcoholic cirrhosis with hepatitis C. She has had multiple blood transfusions in the past. 3. Ulcerative colitis, status post colectomy. 4. Acidosis. HISTORY AND PHYSICAL [id number] TIMO FUCHS PLAN: We will admit, give IV fluids, increase her lactulose. Other tests and procedures as warranted. TRANSINT:[id number] Voice Confirmation ID: [id number] DOCUMENT ID: [id number] ERIKA MORAN MD at 2108 CC: [id number] DICTATION DATE: 04/28/17 1210 E LEARNING SPECIALIST: 04/28/17 1312 ADM IN [place] [id number] [place] [address]
--- NOTE | 2017-04-29 02:00 | NUR ---
PT IN BED WITH NO DISTRESS AT THIS TIME. RESPIRATIONS ARE EVEN AND UNLABORED. SIDE RAILS X 2. BED IS LOW. CALL LIGHT IS IN REACH.
[2017-04-29 04:00] VITALS: BP 94/45
[2017-04-29 04:56] LABS: BASOPHILS 0.2 % (0-2); HEMATOCRIT 26.6 % (36.0-48.0); HEMOGLOBIN 9.1 g/dL (12-16); IMMATURE GRANULOCYTES 0.2 % (0-5); LYMPHOCYTES 17.6 % (15-50); MCH 31.1 pg (26.0-34.0); MCHC 34.2 g/dL (31.0-37.0); MCV 90.8 fL (80.0-100.0); MEAN PLATELET VOLUME 9.8 fL (7.4-10.4); PLATELET COUNT 62 10x3/uL (130-400); RBC 2.93 10x6/uL (4.00-5.40); RDW 18.3 % (11.5-14.5); WBC 5.1 10x3/uL (4.8-10.8)
[2017-04-29 05:11] LABS: ANION GAP 12.2 mmol/L (8-16); CALCIUM 7.5 mg/dL (8.5-10.1); CARBON DIOXIDE 26.3 mmol/L (21.0-32.0); CREATININE - SERUM 4.3 mg/dL (0.6-1.3)
[2017-04-29 05:19] LABS: POTASSIUM - SERUM 2.5 mmol/L (3.5-5.1)
--- NOTE | 2017-04-29 05:54 | NUR ---
WAS INFORMED BY LAB THAT PT HAD AN CRITICAL POTASSIUM OF 2.5. CALLED WAS PLACE TO ON-CALL AWAITING RESPONSE D/T PT NOT ON ELECTROLYTE PROTOCOL.
--- NOTE | 2017-04-29 07:35 | NUR ---
ALERT, DENIES NEEDS, BED LOWEST POSITION, CALL LIGHT IN REACH, WILL CONTINUE TO MONITOR
[2017-04-29 07:51] VITALS: BP 107/41
[2017-04-29 08:31] LABS: CREATININE - URINE 161.8 mg/dL (30-125); PRO/CRE RATIO URINE 0.5 mg/g; PROTEIN - URINE 82.7 mg/dL (0.0-11.9)
[2017-04-29 08:39] LABS: APPEARANCE CLOUDY (CLEAR); BILIRUBIN NEGATIVE (NEGATIVE); COLOR YELLOW (YELLOW); GLUCOSE NEGATIVE (NEGATIVE); KETONE NEGATIVE (NEGATIVE); LEUKOCYTE ESTERASE 2+ (NEGATIVE); NITRITE NEGATIVE (NEGATIVE); PROTEIN TRACE mg/dL (NEGATIVE); SPECIFIC GRAVITY 1.015 (1.005-1.020); UROBILINOGEN NORMAL (NORMAL)
--- NOTE | 2017-04-29 08:39 | NUR ---
PATIENT IN MID GUEVARA POSITION RESTING WITH EYES CLOSED. RESPIRATIONS EVEN AND UNLABORED. SIDE RAILS UP X2. BED IN LOW POSITION. CALL LIGHT IN REACH.
[2017-04-29 08:40] LABS: BACTERIA MANY /hpf (NONE SEEN); EPITHELIAL CELLS RARE /hpf (0-5); MUCUS <1+ /lpf (NONE SEEN); WHITE CELLS - URINE >50 /hpf (0-5)
[2017-04-29 11:56] VITALS: BP 108/43
[2017-04-29 14:28] LABS: MAGNESIUM - SERUM 1.6 mg/dL (1.8-2.4); PHOSPHOROUS 4.6 mg/dL (2.5-4.9)
[2017-04-29 14:29] LABS: POTASSIUM - SERUM 3.6 mmol/L (3.5-5.1)
--- NOTE | 2017-04-29 14:35 | NUR ---
DR MORAN NOTIFIED OF 140 AMMONIA LEVEL
--- NOTE | 2017-04-29 15:17 | NUR ---
NUTRITION MONITORING & EVAL CHART REVIEWED, PT VISIT. IMPROVED PO INTAKE WITH FAMILY ASSIST. ~75% INTAKE RECENT MEALS. WILL CONTINUE TO PROVIDE RENAL ADA DIET, MONITOR PO INTAKE. RD FOLLOWING
[2017-04-29 16:13] VITALS: BP 104/49
[2017-04-29 18:00] VITALS: BP 99/38
--- NOTE | 2017-04-29 23:01 | NUR ---
REC'D PATIENT LYING IN BED. ALERT AND ORIENTED X4. NO DISTRESS NOTED. STATED WAS IN PAIN. WILL ADMIN PM MEDS PRESCRIBED. DENIED FURTHER NEEDS AT THIS TIME. FAMILY IS AT BEDSIDE. WILL CONT TO MONITOR THROUGHT NIGHT. BED LOW, LOCKED, CALL LIGHT IN REACH.
[2017-04-30] VITALS: BP 86/40
[2017-04-30 04:00] VITALS: BP 92/44
[2017-04-30 05:04] LABS: BASOPHILS 0.2 % (0-2); EOSINOPHILS 3.1 % (0-7); HEMOGLOBIN 8.7 g/dL (12-16); IMMATURE GRANULOCYTES 0.4 % (0-5); LYMPHOCYTES 19.3 % (15-50); MCH 31.8 pg (26.0-34.0); MCHC 34.8 g/dL (31.0-37.0); MCV 91.2 fL (80.0-100.0); MEAN PLATELET VOLUME 10.8 fL (7.4-10.4); MONOCYTES 8.1 % (2-11); NEUTROPHILS 68.9 % (40-80); PLATELET COUNT 69 10x3/uL (130-400); RBC 2.74 10x6/uL (4.00-5.40); RDW 18.6 % (11.5-14.5); WBC 5.4 10x3/uL (4.8-10.8)
[2017-04-30 05:46] LABS: ANION GAP 7.4 mmol/L (8-16); CALCIUM 7.5 mg/dL (8.5-10.1); CARBON DIOXIDE 32.4 mmol/L (21.0-32.0); CREATININE - SERUM 4.5 mg/dL (0.6-1.3); PHOSPHOROUS 4.6 mg/dL (2.5-4.9)
[2017-04-30 06:43] LABS: POTASSIUM - SERUM 2.8 mmol/L (3.5-5.1)
--- NOTE | 2017-04-30 07:48 | NUR ---
AWAKE AND ALERT. ORIENTED TO SELF. REORIENTED TO PLACE AND TIME PER STAFF. LUNGS ARE CLEAR BILATERALLY, NO COUGH NOTED. SKIN IS INTACT WITHOUT REDNESS EXCEPT STAGE TWO TO COCCYX. WILL GET WOUND CARE TO SEE. LEFT PORT IS PATENT WITHOUT REDNESS AT INSERTION SITE. COLOSTOMY IS PATENT WITH DARK BROWN WATERY STOOL NOTED. STOMA IS PINK AND VIABLE. REPOSITIONED IN BED FOR COMFORT. DENIES NEEDS.
[2017-04-30 08:18] VITALS: BP 86/38
--- NOTE | 2017-04-30 09:00 | NUR ---
ASSISTED TO EAT BREAKFAST PER STAFF. ATE OVER HALF OF MEAL. GOMEZ PATENT WITH CLEAR YELLOW URINE. DENIES NEEDS. SCD'S OFF AT THIS TIME.
[2017-04-30 11:47] VITALS: BP 99/37
--- NOTE | 2017-04-30 14:20 | NUR ---
FAMILY ASSISTED WITH MEAL. ATE ALMOST HALF OF TRAY. COLOSTOMY EMPTIED PER STAFF. DENIES NEEDS.
[2017-04-30 15:28] LABS: MAGNESIUM - SERUM 1.6 mg/dL (1.8-2.4)
[2017-04-30 15:40] VITALS: BP 93/33
--- NOTE | 2017-04-30 21:12 | NUR ---
AWAKE,ALERT,NO COMPLIANTS VOICED. COLOSTOMY BAG PATENT.IV INFUSING TO LEFT PORT WIHTOUT REDNESS OR EDEMA NOTED. CL IN REACH. FAMILY AT BEDSIDE.
[2017-05-01 00:04] VITALS: BP 97/46
--- NOTE | 2017-05-01 01:31 | NUR ---
RESTING QUIETLY. NO DISTRESS NOTED. CL IN REACH.
--- NOTE | 2017-05-01 02:00 | NUR ---
PT IN BED WITH NO DISTRESS. RESPIRATIONS EVEN AND UNLABORED. SIDE RAILS X 2. BED LOW. CALL LIGHT IN REACH.
[2017-05-01 04:00] VITALS: BP 90/40
[2017-05-01 04:43] LABS: BASOPHILS 0.2 % (0-2); EOSINOPHILS 3.7 % (0-7); HEMATOCRIT 26.4 % (36.0-48.0); HEMOGLOBIN 8.9 g/dL (12-16); IMMATURE GRANULOCYTES 0.2 % (0-5); LYMPHOCYTES 19.7 % (15-50); MCH 31.2 pg (26.0-34.0); MCHC 33.7 g/dL (31.0-37.0); MCV 92.6 fL (80.0-100.0); MEAN PLATELET VOLUME 9.8 fL (7.4-10.4); MONOCYTES 12.1 % (2-11); NEUTROPHILS 64.1 % (40-80); PLATELET COUNT 72 10x3/uL (130-400); RBC 2.85 10x6/uL (4.00-5.40); RDW 18.4 % (11.5-14.5); WBC 5.1 10x3/uL (4.8-10.8)
[2017-05-01 04:52] LABS: ANION GAP 13.6 mmol/L (8-16); CALCIUM 7.8 mg/dL (8.5-10.1); CREATININE - SERUM 4.3 mg/dL (0.6-1.3); MAGNESIUM - SERUM 1.7 mg/dL (1.8-2.4); PHOSPHOROUS 4.7 mg/dL (2.5-4.9); POTASSIUM - SERUM 3.6 mmol/L (3.5-5.1)
--- NOTE | 2017-05-01 05:18 | NUR ---
AWAKE WITH NO COMPLAINTS. NO CHANGE IN ASSESSMENT. CL IN REACH
--- NOTE | 2017-05-01 08:10 | NUR ---
AWAKE AND ALERT. ORIENTED X3. NO C/O AT THIS TIME. LUNGS ARE CLEAR BILATERALLY, NO COUGH NOTED. SKIN IS INTACT WITHOUT REDNESS EXCEPT STAGE 2 TO COCCYX AREA WHICH IS OLD. PORT TO LEFT IS PATENT WITHOUT REDNESS AT INSERTION SITE. GOMEZ PATENT WITH CLEAR YELLOW URINE. COLOSTOMY IS PATENT WITHOUT REDNESS. STOMA PINK AND VIABLE. DENIES NEEDS. FAMILY AT BEDSIDE.
[2017-05-01 08:39] VITALS: BP 92/35
--- NOTE | 2017-05-01 10:00 | NUR ---
OSTOMY LEAKING EVERYWHERE. REPLACED APPLIANCE AND PERFORMED SKIN CARE AT THIS TIME. WILL MONITOR. BATH GIVEN AND LINEN CHANGED.
[2017-05-01 13:22] VITALS: BP 124/51
[2017-05-01 17:30] VITALS: BP 104/43
--- NOTE | 2017-05-01 18:42 | NUR ---
ATE MOST OF SUPPER. FAMILY AT BEDSIDE. NO CHANGES NOTED. DENIES NEEDS.
[2017-05-01 20:00] VITALS: BP 107/48
--- NOTE | 2017-05-01 21:00 | NUR ---
AWAKE,ALERT,OXY IR GIVEN FOR COMPLAINTS OF DISCOMFORT. IV INFUSING TO LEFT PORT WITHOUT REDNESS OR EDEMA NOTED. CL IN REACH
[2017-05-02] VITALS: BP 94/45
--- NOTE | 2017-05-02 03:05 | NUR ---
EYES CLOSED RESP EVEN AND UNLABORED. NO DISTRESS NOTED. CL IN REACH
[2017-05-02 04:00] VITALS: BP 96/45
--- NOTE | 2017-05-02 04:18 | NUR ---
EYES CLOSED RESPIRATIONS WITH EASE AND UNLABORED.
[2017-05-02 06:04] LABS: MAGNESIUM - SERUM 1.6 mg/dL (1.8-2.4); PHOSPHOROUS 5.3 mg/dL (2.5-4.9)
--- NOTE | 2017-05-02 06:19 | NUR ---
NO CHANGE IN ASSESSMENT CLIN REACH
[2017-05-02 07:20] LABS: ANION GAP 18.8 mmol/L (8-16); CALCIUM 7.9 mg/dL (8.5-10.1); CARBON DIOXIDE 19.8 mmol/L (21.0-32.0); POTASSIUM - SERUM 3.6 mmol/L (3.5-5.1)
--- NOTE | 2017-05-02 07:30 | NUR ---
PT ASSESSEMNT COMPLETE AWAKE AND ALERT ORINETD X 3 LUNGS CLEAR BIALTERALLY BSA X 3 COLOSTOMY PATENT TO SOFT STOOL. GOMEZ PATENT TO CLEAR YELLOW URINE PER GRAVITY FLOW WILL MONTOR SEE FLOWSHEET FOR TOTAL ASSESSMENT
[2017-05-02 07:55] VITALS: BP 94/45
--- NOTE | 2017-05-02 11:11 | NUR ---
PATIENT RESTING IN THE BED. PATIENT IS AWAKE, ALERT, AND ORIENTED X4. PATIENT REPORTS PAIN IN HER "BUTT". RATES PAIN LEVEL A "5" ON A 0-10 SCALE. LEFT CHEST INFUSAPORT PATENT WITH DRESSING C/D/I. NS INFUSING @ 100 ML/HR. GOMEZ CATHETER PATENT AND DRAINING CLEAR KAREEM COLORED URINE. COLOSTOMY BAG PATENT WITH BROWN LOOSE STOOL NOTED IN THE BAG. PATIENT'S DAUGHTER ENTERED ROOM AND TEARFUL. PATIENT ASKED DAUGHTER IF SHE'S OK. PATIENT'S DAUGHTER STATED, "I'M SORRY FOR BOTHERING YOU SO MUCH THIS MORNING". PATIENT STATED THAT DAUGHTER WAS NOT BOTHERING HER AND THEY WILL GET THROUGH ALL OF THIS TOGETHER. PATIENT HUGGED DAUGHTER AND CONSOLED HER. PATIENT DENIES ANY NEEEDS AT PRESENT ITME. CALL LIGHT IN PATIENT'S REACH. SCD'S NOTED TO PATIENT'S BILATERAL EXTREMITIES. WILL MONITOR PATIENT.
[2017-05-02 12:10] VITALS: BP 98/33
--- NOTE | 2017-05-02 13:07 | NUR ---
PT SITTING UP IN BED EATING LUNCH DAUGHTER AT SIDE
[2017-05-02 15:44] VITALS: BP 102/42
--- NOTE | 2017-05-02 15:53 | NUR ---
Wound care familiar with this pt. She has numerous open chronic wounds on gluteal folds, perineum, gluteal cleft, buttocks. She has stage 2 pressure injury to right buttock measuring 1.5cm x 1.5cm. Wound bed is red with peeling edges. No odor. She has colostomy LLQ which she maintains with assistance. Prior treatment of chronic wounds was wet to dry dressings using normal saline. Recommend continuing the same thing. She does not want an overlay mattress. Turn q2h (assistance). Wound care will continue monitoring.
--- NOTE | 2017-05-02 16:00 | NUR ---
WET TO DRY DRESSING PER RECOMMENDATION OF WOUND CARE.
--- NOTE | 2017-05-02 18:24 | NUR ---
PT RESTING WELL IN BED RIGHT SIDE LYING LARGE VOLUME OF COLOSTOMY OUT PUT TODAY 2250 ML
[2017-05-02 20:00] VITALS: BP 85/33
[2017-05-03] VITALS: BP 81/30
--- NOTE | 2017-05-03 01:04 | NUR ---
PT RESTING QUIETLY, EYES CLOSED. APPEAR TO BE SLEEPING. RESP EVEN, UNLABORED. NO DISTRESS NOTED. CONTINUE DIRECTOR BUSINESS DEVELOPMENT'S PLAN OF CARE.
[2017-05-03 04:00] VITALS: BP 90/33
[2017-05-03 04:50] LABS: BASOPHILS 0.2 % (0-2); EOSINOPHILS 3.3 % (0-7); HEMATOCRIT 24.5 % (36.0-48.0); HEMOGLOBIN 8.2 g/dL (12-16); IMMATURE GRANULOCYTES 0.4 % (0-5); LYMPHOCYTES 16.7 % (15-50); MCH 31.1 pg (26.0-34.0); MCHC 33.5 g/dL (31.0-37.0); MCV 92.8 fL (80.0-100.0); MONOCYTES 15.6 % (2-11); NEUTROPHILS 63.8 % (40-80); PLATELET COUNT 78 10x3/uL (130-400); RBC 2.64 10x6/uL (4.00-5.40); RDW 17.7 % (11.5-14.5); WBC 5.5 10x3/uL (4.8-10.8)
[2017-05-03 05:16] LABS: ANION GAP 13.7 mmol/L (8-16); CALCIUM 7.7 mg/dL (8.5-10.1); CARBON DIOXIDE 19.7 mmol/L (21.0-32.0); CREATININE - SERUM 3.6 mg/dL (0.6-1.3); MAGNESIUM - SERUM 1.6 mg/dL (1.8-2.4); PHOSPHOROUS 5.5 mg/dL (2.5-4.9); POTASSIUM - SERUM 3.4 mmol/L (3.5-5.1)
--- NOTE | 2017-05-03 05:46 | NUR ---
NO CHANGE IN ASSESSMENT. CL IN REACH
[2017-05-03 08:09] VITALS: BP 90/31
[2017-05-03 12:38] VITALS: BP 123/48
--- NOTE | 2017-05-03 13:39 | NUR ---
NUTRITION MONITORING & EVAL CHART REVIEWED, PT VISIT. FAMILY AT BEDSIDE. ADA DIET WITH 100% INTAKE RECENT MEALS. WILL CONTINUE TO PROVIDE DIET, MONITOR PO INTAKE. RD FOLLOWING
[2017-05-03 15:32] VITALS: BP 114/33
--- NOTE | 2017-05-03 18:40 | NUR ---
PT LYING IN BED WITH FAMILY AT BEDSIDE, COMPLAINTS OF PAIN OF A 6 ON A SCALE OF 1-10. MEDICATION TO BE GIVEN BY NURSE. BED IN LOW POSITION AND CALL LIGHT WITHIN REACH. WILL CONTINUE TO MONITOR.
[2017-05-04] VITALS: BP 86/37
[2017-05-04 04:00] VITALS: BP 85/34
[2017-05-04 06:11] LABS: BASOPHILS 0.2 % (0-2); EOSINOPHILS 5.4 % (0-7); HEMATOCRIT 24.7 % (36.0-48.0); HEMOGLOBIN 8.3 g/dL (12-16); IMMATURE GRANULOCYTES 0.4 % (0-5); LYMPHOCYTES 18.5 % (15-50); MCH 31.2 pg (26.0-34.0); MCHC 33.6 g/dL (31.0-37.0); MCV 92.9 fL (80.0-100.0); MEAN PLATELET VOLUME 10.7 fL (7.4-10.4); MONOCYTES 14.3 % (2-11); NEUTROPHILS 61.2 % (40-80); RBC 2.66 10x6/uL (4.00-5.40); RDW 17.5 % (11.5-14.5)
[2017-05-04 06:14] LABS: PLATELET COUNT 98 10x3/uL (130-400)
[2017-05-04 06:21] LABS: ANION GAP 14.4 mmol/L (8-16); CALCIUM 7.7 mg/dL (8.5-10.1); CARBON DIOXIDE 18.1 mmol/L (21.0-32.0); CREATININE - SERUM 3.3 mg/dL (0.6-1.3); MAGNESIUM - SERUM 1.8 mg/dL (1.8-2.4); PHOSPHOROUS 4.4 mg/dL (2.5-4.9); POTASSIUM - SERUM 3.5 mmol/L (3.5-5.1)
--- NOTE | 2017-05-04 08:50 | NUR ---
ALERT IN HIGH GUEVARA POSITION EATING BREAKFAST. TOLERATING WELL. FAMILY PRESENT. SIDE RAILSUP X2. BED IN LOW POSITION. CALL LIGHT IN REACH.
[2017-05-04 09:01] VITALS: BP 111/27
[2017-05-04 13:02] VITALS: BP 90/39
[2017-05-04 17:12] VITALS: BP 90/31
[2017-05-04 20:00] VITALS: BP 98/34
[2017-05-05] VITALS (12 sets, daily range): BP systolic 85–116; BP diastolic 25–47
--- NOTE | 2017-05-05 04:12 | NUR ---
ASSESSED AT THE BEGINNING OF THE SHIFT. SHE IS ALERT AND ORIENTED, ABLE TO VERBALIZE NEEDS. SHE HAS A PORT WITH FLUIDS INFUSING ORDERED, AND CONTINUES TO HAVE A GOMEZ CATH IN PLACE. THE COLOSTOMY IS ON THE LET OF THE ABD AND THERE IS A HERNIA TO THE RIGHT SIDE. WE HAVE CLEANED UP THE COLOSTOMY TWICE DURING THE NIGHT AND IT IS WORKING WELL. WE WILL BE DRAWING HER BLOOD THIS MORNING FROM HER PORT. SHE HAS RESTED WELL DURING THE NIGHT. THE BED IS LOW, RAILS UP X'S 2 WITH THE CALL LIGHT AT HAND.
[2017-05-05 06:11] LABS: BASOPHILS 0.3 % (0-2); EOSINOPHILS 3.9 % (0-7); HEMATOCRIT 21.7 % (36.0-48.0); IMMATURE GRANULOCYTES 0.3 % (0-5); LYMPHOCYTES 14.8 % (15-50); MCH 30.5 pg (26.0-34.0); MCHC 33.2 g/dL (31.0-37.0); MCV 91.9 fL (80.0-100.0); MONOCYTES 13.6 % (2-11); NEUTROPHILS 67.1 % (40-80); PLATELET COUNT 80 10x3/uL (130-400); RBC 2.36 10x6/uL (4.00-5.40); RDW 17.6 % (11.5-14.5); WBC 3.6 10x3/uL (4.8-10.8)
[2017-05-05 06:12] LABS: HEMOGLOBIN 7.2 g/dL (12-16)
[2017-05-05 06:18] LABS: ANION GAP 14.4 mmol/L (8-16); CALCIUM 7.4 mg/dL (8.5-10.1); CARBON DIOXIDE 16.8 mmol/L (21.0-32.0); CREATININE - SERUM 3.1 mg/dL (0.6-1.3); MAGNESIUM - SERUM 2.1 mg/dL (1.8-2.4); POTASSIUM - SERUM 3.2 mmol/L (3.5-5.1)
--- NOTE | 2017-05-05 09:41 | NUR ---
SCHEDULED MEDICATIONS ADMINISTERED AT THIS TIME WITHOUT DIFFICULTY. PT AWAKE AND ALERT. ASSESSMENT PERFORMED PER FLOWSHEET. BED ALARM ON AND SCD'S OFF PER OT. CALL LIGHT IN REACH, PT SELF POSITIONS IN BED. WILL CONTINUE WITH PLAN OF CARE.
--- NOTE | 2017-05-05 12:15 | NUR ---
COLOSTOMY APPLIANCE CHANGED AND DAILY WET TO DRY DRESSING PERFORMED TO BUTTOCK PER ORDER. TOLERATED WITH MINIMAL COMPLAINTS OF PAIN. DENIES FURTHER NEEDS. WILL CONTINUE WITH PLAN OF CARE.
--- NOTE | 2017-05-05 13:19 | NUR ---
SCHEDULED MEDICATIONS ADMINISTERED AT THIS TIME. SODIUM BI CARB BOLUS PUSHED OVER 5 MINUTES. PT TOLERATED WITHOUT COMPLAINTS. BLOOD CONSENT SIGNED. WILL PREPARE TO TRANSFUSED 2 UNITS OF PRBCS PER ORDER. DENIES NEEDS. CALL LIGHT IN REACH, WILL CONTINUE WITH PLAN OF CARE.
--- NOTE | 2017-05-05 15:25 | NUR ---
FIRST UNIT OF PRBC'S INITIATED AT THIS TIME PER ORDER TO PT'S LEFT CHEST PORT. WILL REMAIN IN ROOM WITH PT DURING FIRST PORTION OF TRANSFUSION.
--- NOTE | 2017-05-05 23:31 | NUR ---
COLOSTOMY BAG AND WAFFER CHANGED. PREVIOUS BAG PEELED OFF.
[2017-05-06] VITALS: BP 106/43
[2017-05-06 04:00] VITALS: BP 86/32
[2017-05-06 05:05] LABS: BASOPHILS 0.2 % (0-2); EOSINOPHILS 3.8 % (0-7); IMMATURE GRANULOCYTES 0.5 % (0-5); LYMPHOCYTES 15.1 % (15-50); MCV 91.1 fL (80.0-100.0); MEAN PLATELET VOLUME 9.5 fL (7.4-10.4); MONOCYTES 12.9 % (2-11); NEUTROPHILS 67.5 % (40-80); PLATELET COUNT 91 10x3/uL (130-400); RDW 17.1 % (11.5-14.5)
[2017-05-06 05:06] LABS: HEMATOCRIT 28.5 % (36.0-48.0); HEMOGLOBIN 9.7 g/dL (12-16); RBC 3.13 10x6/uL (4.00-5.40); WBC 5.5 10x3/uL (4.8-10.8)
--- NOTE | 2017-05-06 05:19 | NUR ---
WET TO DRY DRESSING REPLACED, NEW COMPLETE OSTOMY PLACED. LINEN CHANGE WITH BED BATH COMPLETED.
[2017-05-06 05:21] LABS: ANION GAP 15.4 mmol/L (8-16); CALCIUM 7.8 mg/dL (8.5-10.1); CREATININE - SERUM 2.7 mg/dL (0.6-1.3); MAGNESIUM - SERUM 1.9 mg/dL (1.8-2.4); POTASSIUM - SERUM 3.4 mmol/L (3.5-5.1)
--- NOTE | 2017-05-06 07:20 | NUR ---
RESTING QUIETLY WITH EYES CLOSED. RESP EVEN,NONLABORED.
[2017-05-06 08:33] VITALS: BP 96/44
--- NOTE | 2017-05-06 09:45 | NUR ---
ASSESSMENT COMPLETE. L PORT PATENT. NS INFUSING AT 50 CC/HR VIA PUMP. COLOSTOMY LEAKING. BAG AND WAFER CHANGED.GOMEZ PATENT DRAINING YELLOW URINE. SCABS SCATTERED OVER ABDOMEN. HIDE HANDLER SHOWING SR 69 PER TECH.
--- NOTE | 2017-05-06 12:30 | NUR ---
COLOSTOMY BAG AND WAFER CHANGED BY ALLA WOUND CARE NURSE.
[2017-05-06 12:41] VITALS: BP 99/45
--- NOTE | 2017-05-06 15:00 | NUR ---
RESTING QUIETLY WITH EYES CLOSED. RESP EVEN,NONLABORED.
[2017-05-06 16:15] VITALS: BP 89/30
--- NOTE | 2017-05-06 18:00 | NUR ---
DENIES ANY NEEDS AT PRESENT.
--- NOTE | 2017-05-06 18:30 | NUR ---
LEAKING NOTED AROUND COLOSTOMY WAFER. COLOSTOMY WAFER AND BAG CHANGED.
[2017-05-06 19:00] VITALS: BP 90/39
[2017-05-07] VITALS: BP 80/31
[2017-05-07 04:00] VITALS: BP 94/40
[2017-05-07 05:40] LABS: BASOPHILS 0.2 % (0-2); EOSINOPHILS 3.1 % (0-7); HEMATOCRIT 27.1 % (36.0-48.0); HEMOGLOBIN 9.4 g/dL (12-16); IMMATURE GRANULOCYTES 0.5 % (0-5); LYMPHOCYTES 16.8 % (15-50); MCH 31.6 pg (26.0-34.0); MCHC 34.7 g/dL (31.0-37.0); MCV 91.2 fL (80.0-100.0); MEAN PLATELET VOLUME 9.9 fL (7.4-10.4); MONOCYTES 11.3 % (2-11); NEUTROPHILS 68.1 % (40-80); PLATELET COUNT 86 10x3/uL (130-400); RBC 2.97 10x6/uL (4.00-5.40); RDW 17.2 % (11.5-14.5); WBC 4.2 10x3/uL (4.8-10.8)
[2017-05-07 07:41] LABS: CALCIUM 7.8 mg/dL (8.5-10.1); CREATININE - SERUM 2.5 mg/dL (0.6-1.3); MAGNESIUM - SERUM 1.9 mg/dL (1.8-2.4)
--- NOTE | 2017-05-07 07:55 | NUR ---
P AOX4 RESP EVEN AND NONLABORED IV TO LEFT INFUSIPORT PATENT AND INTACT SRX2 BED AT LOWEST SETTING CALL LIGHT WITHIN REACH WILL CONTINUE TO MONITOR
[2017-05-07 08:49] VITALS: BP 97/40
[2017-05-07 12:41] VITALS: BP 88/51
--- NOTE | 2017-05-07 14:43 | NUR ---
CM REASSESSMENT NOTE: PATIENT STILL WANTS TO GO HOME AT DISCHARGE AND IS CURRENT WITH [facility]. PATIENT HAD PHYSICAL THERAPY AND THEY SIGNED OFF.
[2017-05-07 16:23] VITALS: BP 90/27
[2017-05-07 19:00] VITALS: BP 109/87
--- NOTE | 2017-05-07 19:15 | NUR ---
RECIEVED SHIFT REPORT. PT IS LYING IN BED. ALERT AND ORIENTED AND ABLE TO VERBALIZE NEEDS. IV IS PATENT AND SALINE LOC AT THIS TIME. SCD'S OFF. GOMEZ IS DRAINING URINE BY GRAVITY. COLOSTOMY NOTED TO LEFT SIDE. PT REQUIRES ASSISTANCE TURNING IN BED FOR COMFORT AND SKIN CARE. PT STATES PAIN IS 7/10. NO NEEDS ARE VERBALIZED AT THIS TIME. WILL CONTINUE TO MONITOR. SIDE RAILS ARE UP X 2. BED IS IN LOWEST POSITION. BED ALARM PLACED ON FOR SAFETY. CALL LIGHT IS WITHIN REACH.
--- NOTE | 2017-05-07 22:05 | NUR ---
SHIFT ASSESSMENT COMPLETED. NIGHT MEDS GIVEN WITH NO PROBLEMS. PT C/O PAIN 06/03. ADMINISTERED PRESCRIBED PRN OXY IR PER ORDER. NO FURTHER NEEDS AT THIS TIME. WILL MONITOR. SIDE RAILS X 2. BED LOW. BED ALARM ON. CALL LIGHT IN REACH.
[2017-05-08 04:00] VITALS: BP 91/48
--- NOTE | 2017-05-08 07:45 | NUR ---
PT AOX4 RESP EVEN AND NONLABORED PT DENIES NEEDS AT THIS TIME IV TO LEFT CHEST WALL INFUSIPORT PATENT AND INTACT SRX2 BED AT LOWEST SETTING CALL LIGHT WITHIN REACH WILL CONTINUE TO MONITOR
[2017-05-08 08:05] VITALS: BP 87/33
[2017-05-08 08:07] LABS: APPEARANCE HAZY (CLEAR); BILIRUBIN NEGATIVE (NEGATIVE); COLOR YELLOW (YELLOW); GLUCOSE NEGATIVE (NEGATIVE); KETONE NEGATIVE (NEGATIVE); LEUKOCYTE ESTERASE 1+ (NEGATIVE); NITRITE NEGATIVE (NEGATIVE); PROTEIN NEGATIVE (NEGATIVE); SPECIFIC GRAVITY 1.015 (1.005-1.020); UROBILINOGEN NORMAL (NORMAL)
[2017-05-08 08:09] LABS: BACTERIA FEW /hpf (NONE SEEN); EPITHELIAL CELLS 0-5 /hpf (0-5); RED CELLS - URINE 0-5 /hpf (0-5); WHITE CELLS - URINE 25-50 /hpf (0-5); YEAST >1+ WITH HYPHAE /hpf (NONE SEEN)
[2017-05-08 11:36] VITALS: BP 86/31
--- NOTE | 2017-05-08 14:22 | NUR ---
NUTRITION MONITORING & EVAL CHART REVIEWED, PT SLEEPING. TOLERATING ADA DIET WITH 100% INTAKE RECENT MEALS. WILL CONTINUE TO PROVIDE DIET, MONITOR PO INTAKE. RD FOLLOWING
[2017-05-08 16:03] VITALS: BP 90/34
--- NOTE | 2017-05-08 19:20 | NUR ---
PT LYING IN BED WATCHING TV, ASSESSMENT COMPLETED, NO DISTRESS NOTED, DENIES NEEDS, COLOSTOMY BAG AND WAFER INTACT, GOMEZ DRAINING TO GRAVITY, SR'S UP, CL IN REACH, WILL MONITOR
[2017-05-08 20:00] VITALS: BP 108/32
--- NOTE | 2017-05-08 21:10 | NUR ---
DENIES NEEDS, FALL PRECAUTIONS IN PLACE, CL IN REACH
--- NOTE | 2017-05-08 23:17 | NUR ---
RESTING WITH EYES CLOSED, RESP WITH EASE, NO DISTRESS NOTED, SR'S UP, CL IN REACH
[2017-05-09] VITALS: BP 89/41
[2017-05-09 04:00] VITALS: BP 104/39
--- NOTE | 2017-05-09 04:04 | NUR ---
COLOSTOMY BAG AND WAFER CHANGED DUE TO LEAKAGE, TOLERATED WELL, CLINICAL REVIEW NURSE TO CLEAN PT AND CHANGE LINENS
--- NOTE | 2017-05-09 04:20 | NUR ---
DSG TO BUTTOCKS CHANGED PER ORDERS DUE TO SOILING, NGUYEN WELL
--- NOTE | 2017-05-09 07:05 | NUR ---
PT REC'D FROM [facility]. RESTING IN BED WATCHING TV. AAOX4. NO COMPLAINTS OF PAIN. L CHEST PORT FREE OF REDNESS AND SWELLING. LUNG SOUNDS CLEAR AND EQUAL BILAT. REGULAR HEART RATE AND RHYTHM. BOWEL SOUNDS ACTIVE X4 QUADRANTS. DRESSING TO COLOSTOMY CDI. LIQUID BROWN STOOL IN COLLECTION BAG. GOMEZ CATHETER DRAINING CLEAR YELLOW URINE TO GRAVITY. DRESSINGS TO BUTTOCK AND COCCYX CDI. +2 PEDAL PULSES BILAT. BED LOW, CALL LIGHT IN REACH, DENIES NEEDS. CPOC.
[2017-05-09 07:47] LABS: BASOPHILS 0.2 % (0-2); EOSINOPHILS 2.3 % (0-7); HEMOGLOBIN 9.8 g/dL (12-16); IMMATURE GRANULOCYTES 1.2 % (0-5); LYMPHOCYTES 13.7 % (15-50); MCH 30.7 pg (26.0-34.0); MCHC 32.7 g/dL (31.0-37.0); MEAN PLATELET VOLUME 9.7 fL (7.4-10.4); MONOCYTES 9.8 % (2-11); NEUTROPHILS 72.8 % (40-80); RBC 3.19 10x6/uL (4.00-5.40); RDW 17.5 % (11.5-14.5)
[2017-05-09 07:54] LABS: PLATELET COUNT 110 10x3/uL (130-400)
[2017-05-09 07:55] LABS: ALBUMIN 1.5 g/dL (3.4-5.0); ANION GAP 16.5 mmol/L (8-16); BILIRUBIN - TOTAL 0.2 mg/dL (0.2-1.3); CALCIUM 8.1 mg/dL (8.5-10.1); CARBON DIOXIDE 14.8 mmol/L (21.0-32.0); CREATININE - SERUM 2.3 mg/dL (0.6-1.3); PROTEIN - SERUM 5.2 g/dL (6.4-8.2)
[2017-05-09 08:05] VITALS: BP 93/37
[2017-05-09 08:05] LABS: POTASSIUM - SERUM 5.3 mmol/L (3.5-5.1)
--- NOTE | 2017-05-09 08:50 | NUR ---
PT LAYING IN BED WITH NO VISABLE SIGNS OF PAIN OR DISCOMFORT AT THIS TIME. SIDE RAILS UP X2, BED IN LOW POSITION AND CALL LIGHT WITHIN REACH. WILL CONTINUE TO MONITOR.
[2017-05-09 12:55] VITALS: BP 101/37
[2017-05-09 15:58] VITALS: BP 98/38
[2017-05-09 20:00] VITALS: BP 89/36
[2017-05-10] VITALS: BP 103/39
[2017-05-10 04:00] VITALS: BP 109/42
[2017-05-10 06:36] LABS: BASOPHILS 0.2 % (0-2); EOSINOPHILS 1.6 % (0-7); HEMATOCRIT 28.8 % (36.0-48.0); HEMOGLOBIN 9.6 g/dL (12-16); IMMATURE GRANULOCYTES 1.2 % (0-5); LYMPHOCYTES 12.1 % (15-50); MCH 31.2 pg (26.0-34.0); MCHC 33.3 g/dL (31.0-37.0); MCV 93.5 fL (80.0-100.0); MEAN PLATELET VOLUME 9.2 fL (7.4-10.4); MONOCYTES 7.8 % (2-11); NEUTROPHILS 77.1 % (40-80); PLATELET COUNT 88 10x3/uL (130-400); RBC 3.08 10x6/uL (4.00-5.40); RDW 17.4 % (11.5-14.5); WBC 5.6 10x3/uL (4.8-10.8)
[2017-05-10 06:51] LABS: ANION GAP 14.3 mmol/L (8-16); CALCIUM 8.4 mg/dL (8.5-10.1); CARBON DIOXIDE 15.6 mmol/L (21.0-32.0); CREATININE - SERUM 2.5 mg/dL (0.6-1.3); MAGNESIUM - SERUM 1.4 mg/dL (1.8-2.4); PHOSPHOROUS 4.3 mg/dL (2.5-4.9); POTASSIUM - SERUM 3.9 mmol/L (3.5-5.1)
[2017-05-10 07:52] VITALS: BP 97/32
[2017-05-10] MEDS ORDERED: SODIUM BICARBO650 MG PO (08:26)
[2017-05-10] MEDS ORDERED: CHRONULAC30 ML PO (08:28)
[2017-05-10] MEDS ORDERED: XIFAXAN550 MG PO (08:29)
[2017-05-10] MEDS ORDERED: BETAPACE 80 MG80 MG PO (08:29)
[2017-05-10] MEDS ORDERED: K-DUR20 MEQ PO (08:30)
--- NOTE | 2017-05-10 08:45 | NUR ---
SAID TO CHANGE POTASSIUM PERSCRIPTION TO 20MEQ TID.
--- NOTE | 2017-05-10 08:53 | NUR ---
CALLED [facility] SPOKE WITH SITA, CHANGED THE PERSCRIPTION FOR POTASSIUM TO 20MEQ TID.
--- NOTE | 2017-05-10 09:47 | NUR ---
CM REASSESSMENT NOTE: PATIENT IS DISCHARGING HOME TODAY WITH [facility]. PATIENTS DAUGHTER IS DRIVING HER HOME. PATIENT HAD NO OTHER NEEDS FOR DISCHARGE.
--- NOTE | 2017-05-10 10:45 | NUR ---
Wound care reassessment: No change in wound on right buttock. The wound bed is red with peeling skin . Recommend continuing the wet to dry dressing changes. Will continue monitoring.
--- NOTE | 2017-05-10 15:46 | NUR ---
DISCHARGE INSTRUCTIONS COMPLETED WITH PATIENT. PATIENT VERBALIZED UNDERSTANDING AND DENIES QUESTIONS. PATIENT LEFT VIA WHEELCHAIR WITH DAUGHTERS AND IPHONE DEVELOPER.
== END 2017-05-10 15:46 | disposition home health service (06) | DRG 441 ==
LOC: D.ER 14:41 → D.MS 22:01
PROVIDERS: Emergency Medicine; Family Medicine; Internal Medicine; Internal Medicine Nephrology; Nurse Practitioner Family; ADMIT Family Medicine
DX: K72.90 Hepatic failure, unspecified without coma (principal); G93.41 Metabolic encephalopathy; G93.49 Other encephalopathy; N17.9 Acute kidney failure, unspecified; E87.2 Acidosis; E87.6 Hypokalemia; E11.9 Type 2 diabetes mellitus without complications; I10 Essential (primary) hypertension; K74.60 Unspecified cirrhosis of liver; B18.2 Chronic viral hepatitis C; E86.0 Dehydration; E83.42 Hypomagnesemia; D64.9 Anemia, unspecified

== ENCOUNTER → 2017-05-12 14:38 | Outpatient (CLI) | payer MEDICARE, MEDICAID ==
[2017-04-26 13:14] VITALS: BMI 29.3
[~2017-05-12 14:38] MED LIST changes: +K-DUR20 MEQ PO
[2017-05-12 15:08] LABS: BASOPHILS 0.1 % (0-2); HEMATOCRIT 34.6 % (36.0-48.0); HEMOGLOBIN 11.2 g/dL (12-16); IMMATURE GRANULOCYTES 0.9 % (0-5); LYMPHOCYTES 15.1 % (15-50); MCHC 32.4 g/dL (31.0-37.0); MCV 95.8 fL (80.0-100.0); MEAN PLATELET VOLUME 9.6 fL (7.4-10.4); MONOCYTES 5.9 % (2-11); RBC 3.61 10x6/uL (4.00-5.40); RDW 17.5 % (11.5-14.5)
[2017-05-12 15:09] LABS: PLATELET COUNT 121 10x3/uL (130-400)
[2017-05-12 15:17] LABS: INR 1.2 (0.85-1.17); PROTIME 15.1 SECONDS (11.6-15.0)
[2017-05-12 15:27] LABS: ALBUMIN 1.9 g/dL (3.4-5.0); ANION GAP 16.5 mmol/L (8-16); BILIRUBIN - TOTAL 0.24 mg/dL (0.2-1.3); CALCIUM 8.4 mg/dL (8.5-10.1); CARBON DIOXIDE 16.4 mmol/L (21.0-32.0); CREATININE - SERUM 2.5 mg/dL (0.6-1.3); POTASSIUM - SERUM 3.9 mmol/L (3.5-5.1); PROTEIN - SERUM 6.5 g/dL (6.4-8.2)
== END | disposition home or self-care (01) ==
LOC: D.LAB 14:38
PROVIDERS: Internal Medicine Gastroenterology
DX: R53.1 Weakness (principal); E72.20 Disorder of urea cycle metabolism, unspecified

== ENCOUNTER 2017-05-19 18:17 | Inpatient (IN) | payer MEDICARE, MEDICAID ==
[~2017-05-19] VITALS: Ht 157.5 cm; Wt 79.4 kg
[2017-05-19 19:21] LABS: APPEARANCE CLEAR (CLEAR); BILIRUBIN NEGATIVE (NEGATIVE); COLOR YELLOW (YELLOW); GLUCOSE NEGATIVE (NEGATIVE); KETONE NEGATIVE (NEGATIVE); LEUKOCYTE ESTERASE NEGATIVE (NEGATIVE); NITRITE NEGATIVE (NEGATIVE); PROTEIN NEGATIVE (NEGATIVE); SPECIFIC GRAVITY 1.015 (1.005-1.020); UROBILINOGEN NORMAL (NORMAL)
[2017-05-19 19:35] LABS: BASOPHILS 0.2 % (0-2); EOSINOPHILS 0.9 % (0-7); HEMATOCRIT 35.5 % (36.0-48.0); HEMOGLOBIN 11.7 g/dL (12-16); IMMATURE GRANULOCYTES 0.2 % (0-5); LYMPHOCYTES 10.9 % (15-50); MCH 31.4 pg (26.0-34.0); MCV 95.2 fL (80.0-100.0); MEAN PLATELET VOLUME 9.7 fL (7.4-10.4); MONOCYTES 8.1 % (2-11); NEUTROPHILS 79.7 % (40-80); PLATELET COUNT 112 10x3/uL (130-400); RBC 3.73 10x6/uL (4.00-5.40); RDW 17.3 % (11.5-14.5); WBC 8.8 10x3/uL (4.8-10.8)
[2017-05-19 19:36] LABS: AMORPHOUS SEDIMENT <1+ /lpf (NONE SEEN); BACTERIA FEW /hpf (NONE SEEN); EPITHELIAL CELLS OCC /hpf (0-5); GRANULAR CAST OCC /lpf (NONE SEEN); HYALINE CAST OCC /lpf (NONE SEEN); RED CELLS - URINE RARE /hpf (0-5); WHITE CELLS - URINE RARE /hpf (0-5)
[2017-05-19 19:52] LABS: ALBUMIN 2.3 g/dL (3.4-5.0); ANION GAP 14.5 mmol/L (8-16); BILIRUBIN - TOTAL 0.52 mg/dL (0.2-1.3); CALCIUM 8.6 mg/dL (8.5-10.1); CARBON DIOXIDE 10.9 mmol/L (21.0-32.0); CREATININE - SERUM 3.3 mg/dL (0.6-1.3); MAGNESIUM - SERUM 1.9 mg/dL (1.8-2.4); POTASSIUM - SERUM 3.4 mmol/L (3.5-5.1); PROTEIN - SERUM 7.5 g/dL (6.4-8.2)
[2017-05-19 21:53] VITALS: BMI 32.1
--- NOTE | 2017-05-20 00:08 | NUR ---
NEW ADMIT TO DOCTOR MORAN FROM EMERGENCY DEPARTMENT. TRANSPORTED TO ROOM BY [facility]OPSITAL STAFF WITH FAMILY AT HER SIDE. ALERT BUT TIRED. FAILY STATES SHE HAS NOT URINATED FOR A FEW DAYS. GOMEZ PLACED IN ED. CALM AND COOPERATIVE WITH ASSESSMENTS AND CARE. CALL LIGHT IN REACH
--- NOTE | 2017-05-20 02:53 | NUR ---
RESTING IN BED WITH EYES CLOSED. NO SIGNS OF DISTRESS. CALL LIGHT IN REACH. BOX ALARM IS ON
[2017-05-20 04:00] VITALS: BP 82/40
[2017-05-20 06:39] LABS: BASOPHILS 0.1 % (0-2); EOSINOPHILS 1.2 % (0-7); HEMATOCRIT 33.7 % (36.0-48.0); HEMOGLOBIN 11.2 g/dL (12-16); IMMATURE GRANULOCYTES 0.3 % (0-5); LYMPHOCYTES 14.2 % (15-50); MCH 31.5 pg (26.0-34.0); MCHC 33.2 g/dL (31.0-37.0); MCV 94.7 fL (80.0-100.0); MEAN PLATELET VOLUME 10.5 fL (7.4-10.4); MONOCYTES 8.2 % (2-11); PLATELET COUNT 105 10x3/uL (130-400); RBC 3.56 10x6/uL (4.00-5.40); RDW 17.2 % (11.5-14.5); WBC 7.5 10x3/uL (4.8-10.8)
[2017-05-20 06:54] LABS: ANION GAP 17.8 mmol/L (8-16); CALCIUM 8.4 mg/dL (8.5-10.1); CARBON DIOXIDE 12.8 mmol/L (21.0-32.0); CREATININE - SERUM 3.4 mg/dL (0.6-1.3); MAGNESIUM - SERUM 1.8 mg/dL (1.8-2.4); PHOSPHOROUS 6.7 mg/dL (2.5-4.9); POTASSIUM - SERUM 3.6 mmol/L (3.5-5.1)
--- NOTE | 2017-05-20 07:40 | NUR ---
PT AOX4 RESP EVEN AND NONLABORED PT DENIES NEEDS AT THIS TIME IV TO RIGHT CHEST WALL PORT PATENT AND INTACT AT THIS TIME SRX2 BED IN LOWEST POSITION AND CALL LIGHT WITHIN REACH WILL CONTINUE TO MONITOR
[2017-05-20 08:31] VITALS: BP 84/34
[2017-05-20 12:32] VITALS: BP 108/45
[2017-05-20 13:06] VITALS: Ht 157.5 cm; Wt 79.4 kg
--- NOTE | 2017-05-20 15:06 | NUR ---
Is the patient Alert and Oriented? Yes 0 * How many steps to enter\exit or inside your home? zero 0 * PCP DR Suresh 0 * [facility]acy [facility] on [facility] near to [facility] 0 * Preadmission Environment Home with Family 0 * ADLs Partial Dependent 0 * Partial ADLs (Assistance needed) Bathing Dressing Transfers 0 * Equipment Bedside Commode CPAP Hospital Bed Rolling Walker Shower Chair Wheelchair 0 * List name and contact numbers for known caregivers / representatives who currently or will assist patient after discharge: [facility] [phone] 0 * Community resources currently utilized Home Health 0 * Please name any agencies selected above. [facility] 0 * Additional services required to return to the preadmission environment? No 0 * Can the patient safely return to the preadmission environment? Yes 0 * Has this patient been hospitalized within the prior 30 days at any hospital? Yes 0
--- NOTE | 2017-05-20 15:27 | NUR ---
Met with patient in the room. She plans to return to home w/ [facility]. Her daughter assist her. CM spoke with Libby at [facility] [facility]. They will resume care at discharge. PCP- DR Kerwin TAPIA consult- DR Elena LEE provider- [facility] (CP[facility]) [facility] for (bed) DME-walker, wheelchair, CPAP, hospital, shower chair, BSC Patient has ramp at home to enter. No steps. Her daughter will provide transportation. Isabela Johnson- [phone] Home Health- [facility] [phone]- receiving wound care Pharmacy- [facility] [address] near [facility]'s patient denies any additional needs at this time. She did say she was having some problems with her hospital bed. She obtained the bed from [facility] sometime ago. TC to [employer] [place]. Spoke with New. He will call the daughter with the phone number for the manufacture as the bed is no longer a rental. [facility] can not repair. CM to follow to assist at discharge.
[2017-05-20 16:09] VITALS: BP 84/43
[2017-05-20 20:00] VITALS: BP 92/41
--- NOTE | 2017-05-20 20:00 | NUR ---
ASSESSMENT PER FLOWSHEET. IV PATENT LEFT IFP WITH D5W/8.4% BICARB INFUSING AT 100CC'S/HR. SITE CLEAR. GOMEZ TO BS DRAINAGE WITH CONCENTRATED KAREEM COLORED URINE. ABRASION TO LEFT ARM AND LEFT KNEE. 1/2X2 CM SORE NOTED TO COCCYX AREA. LEFT ABD. COLOSTOMY NOTED AND RT HERNIA NOTED TO ABDOMEN. BOX ALARM ON AND ACTIVATED.
--- NOTE | 2017-05-20 21:30 | NUR ---
MEDS GIVEN IN 4 OZ CRANBERRY JUICE.
[2017-05-21] VITALS: BP 102/50
--- NOTE | 2017-05-21 00:30 | NUR ---
EYES CLOSED RESPIRATIONS WITH EASE AND UNLABORED.
--- NOTE | 2017-05-21 00:59 | NUR ---
COLOSTOMY LEAKING ALL OVER BED. CHANGED OUT WAFER AND BAG. COMPLETE BED BATH AND LINENS CHANGED. DRESSING TO COCCYX CHANGED. SORE ON RT ABDOMEN APPLIED MEPERPLEX DRESSING TO SITE.
--- NOTE | 2017-05-21 02:30 | NUR ---
EYES CLOSED RESPIRATIONS WITH EASE AND UNLABORED.
[2017-05-21 04:00] VITALS: BP 111/52
--- NOTE | 2017-05-21 05:19 | NUR ---
EYES CLOSED RESPIRATIONS WITH EASE AND UNLABORED.
--- NOTE | 2017-05-21 06:12 | NUR ---
EYES CLOSED RESPIRATIONS WITH EASE AND UNLABORED. IV BAG CHANGED.
--- NOTE | 2017-05-21 08:10 | NUR ---
INCREASED IVF RATE TO 150ML/HR PER ORDER
[2017-05-21 08:17] VITALS: BP 81/44
[2017-05-21 12:01] VITALS: BP 94/46
[2017-05-21 14:44] LABS: ANION GAP 16.4 mmol/L (8-16); CALCIUM 7.8 mg/dL (8.5-10.1); CREATININE - SERUM 3.2 mg/dL (0.6-1.3); POTASSIUM - SERUM 3.4 mmol/L (3.5-5.1)
--- NOTE | 2017-05-21 14:45 | NUR ---
PAGED TO NOTIFY HER OF AMMONIA LEVEL
--- NOTE | 2017-05-21 15:38 | NUR ---
CALLED 'S OFFICE, SPOKE WITH 'S NURSE. SHE SAID SHE WILL GIVE THE MESSAGE, TOLD HER PATIENT'S AMMONIA LEVEL.
[2017-05-21 15:47] VITALS: BP 90/42
[2017-05-21 20:00] VITALS: BP 90/44
--- NOTE | 2017-05-21 20:00 | NUR ---
ASSESSMENT PER FLOWSHEET. IV PATENT LEFT INFUSAPORT. OF D5W WITH BICARB INFUSING AT 150CC'S/HR. GOMEZ TO BS DRAINAGE WITH SCANT AMOUNT OF KAREEM URINE. BOX ALARM ON PATIENT. COLOSTOMY IN PLACE AND EMPTIED BROWN COLORED WATER.
--- NOTE | 2017-05-21 21:30 | NUR ---
MEDS GIVEN PER MAR. MUCH ENCOURAGEMENT TO TAKE PO LACTULOSE.
[2017-05-22] VITALS (7 sets, daily range): BP systolic 84–156; BP diastolic 39–86
--- NOTE | 2017-05-22 | NUR ---
HAVE BEEN EMPTYING COLOSTOMY BAG Q2-3 HRS AND RECORDED ON I&O SHEET.
--- NOTE | 2017-05-22 04:00 | NUR ---
REPOSITIONED IN BED HOB UP 30 DEGREES. SR UP X3 CALL LIGHT WITHIN REACH.
[2017-05-22 05:13] LABS: APTT 27.6 SECONDS (22.8-39.4); INR 1.29 (0.85-1.17); PROTIME 15.9 SECONDS (11.6-15.0)
[2017-05-22 05:19] LABS: ALBUMIN 1.8 g/dL (3.4-5.0); BILIRUBIN - DIRECT 0.13 mg/dL (0.00-0.30); BILIRUBIN - INDIRECT 0.42 mg/dL (0.00-1.00); BILIRUBIN - TOTAL 0.55 mg/dL (0.2-1.3); CREATININE - SERUM 3.2 mg/dL (0.6-1.3); MAGNESIUM - SERUM 1.7 mg/dL (1.8-2.4); POTASSIUM - SERUM 3.1 mmol/L (3.5-5.1)
[2017-05-22 05:20] LABS: CALCIUM 7.8 mg/dL (8.5-10.1); CARBON DIOXIDE 29.1 mmol/L (21.0-32.0)
[2017-05-22 05:29] LABS: BASOPHILS 0.1 % (0-2); EOSINOPHILS 1.9 % (0-7); HEMATOCRIT 28.2 % (36.0-48.0); HEMOGLOBIN 9.3 g/dL (12-16); IMMATURE GRANULOCYTES 0.1 % (0-5); LYMPHOCYTES 16.7 % (15-50); MCH 30.8 pg (26.0-34.0); MCV 93.4 fL (80.0-100.0); MEAN PLATELET VOLUME 10.2 fL (7.4-10.4); MONOCYTES 11.5 % (2-11); NEUTROPHILS 69.7 % (40-80); PLATELET COUNT 89 10x3/uL (130-400); RBC 3.02 10x6/uL (4.00-5.40); RDW 17.3 % (11.5-14.5); WBC 6.8 10x3/uL (4.8-10.8)
--- NOTE | 2017-05-22 05:50 | NUR ---
NO CHANGES IN ASSESSMENT.
--- NOTE | 2017-05-22 07:15 | NUR ---
REPORT RECEIVED FROM REGIONAL DIRECTOR OF ADMISSIONS NURSE. CALL LIGHT IN REACH.
[2017-05-22 07:16] LABS: PLATELET ESTIMATE DECREASED
--- NOTE | 2017-05-22 08:32 | NUR ---
ASSESSMENT COMPLETED. OXY IR WITH AM MEDS ADMINISTERED. COLOSTOMY EMPTIED. CALL LIGHT IN REACH. WILL CONTINUE WITH PLAN OF CARE.
--- NOTE | 2017-05-22 08:41 | NUR ---
OFFERED SCDs BUT REFUSED.
--- NOTE | 2017-05-22 10:28 | NUR ---
BED BATH GIVEN PER BLUEPRINT CLERK. REPOSITIONED IN BED.
--- NOTE | 2017-05-22 12:50 | NUR ---
ALERT IN BED EATING LUNCH. TOLERATING WELL. SIDE RAILS UP X2. BED IN LOW POSITION. CALL LIGHT IN REACH.
--- NOTE | 2017-05-22 13:49 | NUR ---
AFTERNOON MEDS ADMINISTERED. OXY IR PER PAIN IN BACK AND BUTTOCKS. CALL LIGHT IN REACH.
--- NOTE | 2017-05-22 14:32 | NUR ---
RESTING WITH EYES CLOSED. RESP EVEN AND UNLABORED. CALL LIGHT IN REACH.
--- NOTE | 2017-05-22 15:12 | NUR ---
NUTRITION MONITORING & EVAL CHART REVIEWED, PT VISIT. NPO AFTER MN FOR PEG PLACEMENT. RD FOLLOWING
--- NOTE | 2017-05-22 17:12 | NUR ---
CONSENTS SIGNED AND WITNESSED. EVENING MEDS ADMINISTERED.
--- NOTE | 2017-05-22 18:10 | NUR ---
NO CHANGES IN INITIAL ASSESSMENT. CALL LIGHT IN REACH. STILL REFUSES SCDs, WILL CONTINUE WITH PLAN OF CARE.
--- NOTE | 2017-05-22 19:59 | NUR ---
DRSG TO LEFT INFUSAPORT CHANGED USING STERILE TECHNIQUE PER HOSPITAL PROTOCOL. REFUSED TO HAVE WHEELER NEEDLE CHANGED.
--- NOTE | 2017-05-22 20:00 | NUR ---
ASSESSMENT PER FLOWSHEET. IV PATENT LEFT INFUSAPORT OF NS W/40MEQ KCL INFUSING AT 75CC'S/HR. SITE CLEAR. GOMEZ TO BS DRAINAGE WITH KAREEM COLORED URINE.BOX BED ALARM ON AND ACTIVATED. SR UP X2 CALL LIGHT WITHIN REACH. COLOSTOMY PATENT RT LOWER ABDOMEN.
--- NOTE | 2017-05-22 21:10 | NUR ---
C/O PAIN ALL OVER MAINLY IN HER BACK. RATES PAIN LEVEL#6. OXY IR TAB 10MG GIVEN FOR PAIN CONTROL.
--- NOTE | 2017-05-22 21:30 | NUR ---
MEDS GIVEN PER MAR.
--- NOTE | 2017-05-22 22:30 | NUR ---
COLOSTOMY LEAKING ALL OVER PT AND BED. CHANGED OUT OSTOMY WAFER AND BAG. COMPLETE BED BATH WITH LINENS CHANGED.DRESSING TO BUTTOCK CHANGED.
[2017-05-23] VITALS (14 sets, daily range): BP systolic 86–108; BP diastolic 34–65
--- NOTE | 2017-05-23 | NUR ---
EYES CLOSED RESPIRATIONS WITH EASE AND UNLABORED.
--- NOTE | 2017-05-23 02:00 | NUR ---
EYES CLOSED RESPIRATIONS WITH EASE AND UNLABORED.
--- NOTE | 2017-05-23 03:30 | NUR ---
COLOSTOMY EMPTIED BUT HAS ALREADY LEAKED AGAIN OF BED. REMOVED OLD SETUP AND CLEAN STOMA AND DRIED AREA. REPLACED WITH NEW WAVER AND BAG. PLACED ADHESIVE TAPE AND PICTURE FRAMED WAFER.
[2017-05-23 05:57] LABS: BASOPHILS 0.2 % (0-2); EOSINOPHILS 2.2 % (0-7); HEMATOCRIT 29.6 % (36.0-48.0); HEMOGLOBIN 9.8 g/dL (12-16); LYMPHOCYTES 15.3 % (15-50); MCH 31.8 pg (26.0-34.0); MCHC 33.1 g/dL (31.0-37.0); MCV 96.1 fL (80.0-100.0); MEAN PLATELET VOLUME 11.1 fL (7.4-10.4); MONOCYTES 10.2 % (2-11); NEUTROPHILS 72.1 % (40-80); PLATELET COUNT 81 10x3/uL (130-400); RBC 3.08 10x6/uL (4.00-5.40); RDW 17.4 % (11.5-14.5); WBC 5.4 10x3/uL (4.8-10.8)
[2017-05-23 06:14] LABS: CALCIUM 8.2 mg/dL (8.5-10.1); CARBON DIOXIDE 27.4 mmol/L (21.0-32.0); CREATININE - SERUM 3.3 mg/dL (0.6-1.3); MAGNESIUM - SERUM 2.1 mg/dL (1.8-2.4); PHOSPHOROUS 4.1 mg/dL (2.5-4.9)
[2017-05-23 06:18] LABS: ANION GAP 10.2 mmol/L (8-16); POTASSIUM - SERUM 4.6 mmol/L (3.5-5.1)
--- NOTE | 2017-05-23 07:30 | NUR ---
AWAKE AND ALERT. ORIENTED X3. NO C/O AT THIS TIME. LUNGS ARE CLEAR BILATERALLY, NO COUGH NOTED. SKIN IS INTACT WITHOUT REDNESS EXCEPT WOUNDS TO BUTTOCKS AND COCCYX AREA WHICH ARE NOT NEW. WILL MONITOR. LEFT PORT PATENT WITHOUT REDNESS AT INSERTION SITE. COLOSTOMY PATENT WITH DARK LIQUID OUTPUT WITH SOME WHOLE FOODS NOTED. STOMA IS PINK AND VIABLE. DENIES NEEDS AT THIS TIME.
--- NOTE | 2017-05-23 10:15 | NUR ---
OFF UNIT VIA BED FOR PROCEDURE
--- NOTE | 2017-05-23 11:26 | NUR ---
RETURNED FROM PEG PLACEMENT. NO C/O AT THIS TIME. FAMILY IN ROOM. PEG PATENT.
[2017-05-24] VITALS: BP 98/40
[2017-05-24 04:00] VITALS: BP 98/35
[2017-05-24 04:36] LABS: BASOPHILS 0 % (0-2); EOSINOPHILS 0.3 % (0-7); HEMATOCRIT 31.5 % (36.0-48.0); IMMATURE GRANULOCYTES 0.4 % (0-5); LYMPHOCYTES 6.9 % (15-50); MCH 31.1 pg (26.0-34.0); MCHC 31.7 g/dL (31.0-37.0); MCV 97.8 fL (80.0-100.0); MEAN PLATELET VOLUME 10.9 fL (7.4-10.4); MONOCYTES 10.3 % (2-11); NEUTROPHILS 82.1 % (40-80); PLATELET COUNT 83 10x3/uL (130-400); RBC 3.22 10x6/uL (4.00-5.40); RDW 17.1 % (11.5-14.5); WBC 7.5 10x3/uL (4.8-10.8)
[2017-05-24 05:33] LABS: CALCIUM 8.3 mg/dL (8.5-10.1); CARBON DIOXIDE 21.9 mmol/L (21.0-32.0); CREATININE - SERUM 2.9 mg/dL (0.6-1.3); PHOSPHOROUS 4.1 mg/dL (2.5-4.9)
[2017-05-24 05:34] LABS: ANION GAP 15.5 mmol/L (8-16); POTASSIUM - SERUM 7.4 mmol/L (3.5-5.1)
--- NOTE | 2017-05-24 06:36 | NUR ---
CRITICAL POTASSIUM 7.4 - CALLED PHYSICIAN. D/C'D ALL SOURCES OF POTASSIUM AND PUT PT ON TELEMETRY PER TELEPHONE ORDER. RECHECK POTASSIUM THIS AFTERNOON.
[2017-05-24 08:09] VITALS: BP 100/47
--- NOTE | 2017-05-24 09:00 | NUR ---
ASSISTED WITH BREAKFAST PER STAFF. HANDS ARE SHAKEY THIS AM.
--- NOTE | 2017-05-24 10:46 | NUR ---
COLOSTOMY LEAKED AROUND SEAL. LINENS CHANGED, SKIN CARE PER STAFF. APPLIANCE CHANGED WELL. REPOSTITIONED FOR COMFORT
--- NOTE | 2017-05-24 11:11 | NUR ---
Nutrition Consult: TF consult received. Pt is POD 1 PEG placement. Will put orders in to start TF of Suplena @ 10 ml/hr. Increase 10 ml every 6-8 hours as tolerated to goal rate of 35 ml/hr. Water flushes 25 ml/hr. Goal rate will provide 1512 kcal, 37 g protein and [address] following.
--- NOTE | 2017-05-24 12:00 | NUR ---
LUNCH TRAY SERVED IN ROOM. FEEDS SELF WITH SET UP ASSIST.
[2017-05-24 12:36] VITALS: BP 108/40
--- NOTE | 2017-05-24 12:36 | NUR ---
STARTED TUBE FEEDING PER ORDER.
--- NOTE | 2017-05-24 15:42 | NUR ---
RESTING QUIETLY AT THIS TIME. DENIES ANY DISCOMFORT WITH TF RUNNING. HOB UP 35 DEGREES.
[2017-05-24 15:50] VITALS: BP 114/43
--- NOTE | 2017-05-24 18:25 | NUR ---
SITTING UP IN BED EATING A SANDWICH. NO CHANGES NOTED.
[2017-05-24 20:00] VITALS: BP 108/41
--- NOTE | 2017-05-24 20:00 | NUR ---
ASSESSMENT PER FLOW SHEET.PT WITHOUT DISTRESS.CALL LIGHT IN REACH.DRESSING PLACED ON BUTTOCKS WOUND USING ASEPTIC TECH.DAUGHTERS SAY WET TO DRY AT HOME.
--- NOTE | 2017-05-24 23:53 | NUR ---
RESTING ON LEFT SIDE,WITHOUT DISTRESS.MONITOR
[2017-05-25] VITALS: BP 96/36
--- NOTE | 2017-05-25 02:52 | NUR ---
HAS BEEN RESTING,WITHOUT DISTRESS.DOOR OPEN TO MONITOR
[2017-05-25 04:00] VITALS: BP 120/52
[2017-05-25 04:38] LABS: BASOPHILS 0.1 % (0-2); EOSINOPHILS 0.4 % (0-7); HEMATOCRIT 29.4 % (36.0-48.0); HEMOGLOBIN 9.6 g/dL (12-16); IMMATURE GRANULOCYTES 0.2 % (0-5); LYMPHOCYTES 6.8 % (15-50); MCH 31.7 pg (26.0-34.0); MCHC 32.7 g/dL (31.0-37.0); MONOCYTES 10.3 % (2-11); NEUTROPHILS 82.2 % (40-80); PLATELET COUNT 79 10x3/uL (130-400); RBC 3.03 10x6/uL (4.00-5.40); WBC 9.2 10x3/uL (4.8-10.8)
[2017-05-25 04:51] LABS: CALCIUM 8.2 mg/dL (8.5-10.1); CARBON DIOXIDE 20.6 mmol/L (21.0-32.0); CREATININE - SERUM 2.7 mg/dL (0.6-1.3); PHOSPHOROUS 4.9 mg/dL (2.5-4.9); POTASSIUM - SERUM 4.6 mmol/L (3.5-5.1)
--- NOTE | 2017-05-25 05:09 | NUR ---
REMAINS WITHOUT CHANGE FROM INITIAL SHIFT ASSESSMENT.CONT PLAN OF CARE
[2017-05-25 08:16] VITALS: BP 109/49
--- NOTE | 2017-05-25 09:53 | NUR ---
AM MEDS ADMINISTERED. STATES PAIN HAS DECREASED TO A 4. CALL LIGHT IN REACH.
[2017-05-25 12:46] VITALS: BP 94/46
[2017-05-25 16:14] VITALS: BP 105/40
[2017-05-25 20:00] VITALS: BP 108/41
--- NOTE | 2017-05-25 20:00 | NUR ---
ASSESSMEN TPER FLOW SHEET.PT WITHOUT DISTRESS.CALL LIGHT IN REACH
[2017-05-26] VITALS: BP 117/54
[2017-05-26 04:00] VITALS: BP 107/50
--- NOTE | 2017-05-26 04:15 | NUR ---
NOT ALOT OF SLEEP TILL EARLY THIS AM.SHE REMAINS WITHOUT DISTRESS.CALL LIGHT IN REACH.DOOR OPEN
--- NOTE | 2017-05-26 06:23 | NUR ---
AWAKE WITHOUT DISTRESS.WITHOUT CHANGE.CONT PLAN OF CARE
[2017-05-26 06:28] LABS: BASOPHILS 0.1 % (0-2); EOSINOPHILS 1.8 % (0-7); HEMATOCRIT 24.8 % (36.0-48.0); HEMOGLOBIN 8.1 g/dL (12-16); IMMATURE GRANULOCYTES 0.3 % (0-5); LYMPHOCYTES 9.9 % (15-50); MCH 30.9 pg (26.0-34.0); MCHC 32.7 g/dL (31.0-37.0); MEAN PLATELET VOLUME 10.2 fL (7.4-10.4); MONOCYTES 12.4 % (2-11); NEUTROPHILS 75.5 % (40-80); RBC 2.62 10x6/uL (4.00-5.40); RDW 16.3 % (11.5-14.5)
[2017-05-26 06:34] LABS: MCV 94.7 fL (80.0-100.0); PLATELET COUNT 62 10x3/uL (130-400); WBC 6.8 10x3/uL (4.8-10.8)
[2017-05-26 06:48] LABS: ANION GAP 15.1 mmol/L (8-16); CALCIUM 7.7 mg/dL (8.5-10.1); CREATININE - SERUM 2.7 mg/dL (0.6-1.3); PHOSPHOROUS 4.9 mg/dL (2.5-4.9); POTASSIUM - SERUM 3.1 mmol/L (3.5-5.1)
--- NOTE | 2017-05-26 07:00 | NUR ---
PT IS AWAKE AND ALERT, EMPTIED 400 FROM PT OSTOMY BAG, BED IN LOW POSITION, CALL LIGHT WITHIN REACH/ NO SIGNS OF DISTRESS NO OTHER NEEDS AT THIS TIME
[2017-05-26 08:04] VITALS: BP 105/40
--- NOTE | 2017-05-26 09:00 | NUR ---
PT IS WALKING WITH PHYSICAL THERAPY ROSHNI, CHANGED PT BEDDING WHILE UP, EMPTIED PT OSTOMY BAG ON RETURN. NO OTHER NEEDS AT THIS TIME. PT BED IN LOW POSITION CALL LIGHT WITHIN REACH
[2017-05-26 12:00] VITALS: BP 121/36
--- NOTE | 2017-05-26 13:28 | NUR ---
PT IS SITTING IN BED VISITING WITH FAMILY, NO SIGNS OF DISTRESS. CALL LIGHT WITHIN REACH, BED IN LOW POSITION
--- NOTE | 2017-05-26 15:54 | NUR ---
PATIENT IS AWAKE, ALERT AND ORIENTED X'S 4. RESPIRATIONS ARE EVEN AND UNLABORED ON ROOM AIR. NO SIGNS OF DISTRESS NOTED. PATIENT DENIES NEEDS.
[2017-05-26 16:00] VITALS: BP 113/38
[2017-05-26 20:00] VITALS: BP 103/51
--- NOTE | 2017-05-26 20:00 | NUR ---
ASSESSMENT PER FLOW SHEET.PT WITHOUT DISTRESS.DENIES NEEDS.CALL LIGHT IN REACH
[2017-05-27] VITALS: BP 110/55
--- NOTE | 2017-05-27 00:13 | NUR ---
AWAKE,WITHOUT NEEDS AT PRESENT.CALL LIGHT IN REACH
--- NOTE | 2017-05-27 03:07 | NUR ---
SLEEPING WITHOUT DISTRESS.DOOR REMAINS OPEN.MONITOR FOR NEEDS
[2017-05-27 04:00] VITALS: BP 112/60
--- NOTE | 2017-05-27 06:15 | NUR ---
HAS RESTED WELL TONIGHT AFTER PHONE VBISIT WITH FAMILY.SHE WOULD LIKE TO DC HOME TODAY.SHE REMAINS WITHOUT CHANGE FROM INITIAL SHIFT ASSESSMENT.CONT PLAN OF CARE
--- NOTE | 2017-05-27 07:30 | NUR ---
RECIEVED PT DURING WALKING ROUNDS PT RESTING IN BED WITH NO COMPLAINTS OF PAIN OR DISCOMFORT AT THIS TIME. ASSESSMENT DONE PER FLOWSHEET, COLOSTOMY EMPTIED AT THIS TIME. BED IN LOW POSITION AND CALL LIGHT WITHIN REACH. WILL CONTINUE TO MONITOR.
--- NOTE | 2017-05-27 07:50 | NUR ---
Nutrition consult: Received consult for bolus feeds. RDN ordered Suplena 4 cans per day; one at 7:30 am, 11:30 am, 3;30 pm, 7:30 pm with ordered flushes. This TF regimen will provide: 1700 kcal 43 gms protein ~1700 ml H2O Thank you for the consult. RDN following.
[2017-05-27] MEDS ORDERED: CHRONULAC30 ML PO (08:18)
[2017-05-27] MEDS ORDERED: POTASSIUM20 MEQ/11 PEG (08:19)
[2017-05-27 08:58] LABS: BASOPHILS 0.1 % (0-2); EOSINOPHILS 2.4 % (0-7); HEMATOCRIT 25.7 % (36.0-48.0); HEMOGLOBIN 8.7 g/dL (12-16); IMMATURE GRANULOCYTES 0.3 % (0-5); LYMPHOCYTES 7.9 % (15-50); MCHC 33.9 g/dL (31.0-37.0); MCV 94.5 fL (80.0-100.0); MEAN PLATELET VOLUME 10.5 fL (7.4-10.4); MONOCYTES 11.6 % (2-11); NEUTROPHILS 77.7 % (40-80); PLATELET COUNT 76 10x3/uL (130-400); RBC 2.72 10x6/uL (4.00-5.40); RDW 15.6 % (11.5-14.5); WBC 7.5 10x3/uL (4.8-10.8)
[2017-05-27 09:12] LABS: ALBUMIN 1.4 g/dL (3.4-5.0); BILIRUBIN - TOTAL 0.34 mg/dL (0.2-1.3); CALCIUM 7.7 mg/dL (8.5-10.1); CARBON DIOXIDE 15.8 mmol/L (21.0-32.0); CREATININE - SERUM 2.5 mg/dL (0.6-1.3); PROTEIN - SERUM 5.2 g/dL (6.4-8.2)
[2017-05-27 09:14] LABS: ANION GAP 18.2 mmol/L (8-16)
[2017-05-27 09:35] VITALS: BP 95/38
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
--- NOTE | 2017-05-27 11:30 | NUR ---
PROVIDED TEACHING TO PT AND DAUGHTER ON BOLUS FEEDINGS, AND ADMINISTERED BOLUS FEEDINGS AT THIS TIME. DRESSING CHANGED TO PT BUTTOCK. AWAITING DISCHARGE AT THIS TIME, WILL CONTINUE TO MONITOR.
--- NOTE | 2017-05-27 11:39 | NUR ---
Nutrition note: Provided pt with 12 cans of Suplena.
--- NOTE | 2017-05-27 11:44 | NUR ---
Discharge IMM obtained. Patient had no questions or concerns. Her daughter was present at the bedside. Primary nurse, Kelly, was providing teaching regarding bolus tube feeding to patient and daughter.
[2017-05-27 11:49] VITALS: BP 95/34
--- NOTE | 2017-05-27 12:25 | NUR ---
DE-ACCESSED PORT PER PROTOCOL. DISCHARGE INSTRUCTIONS GIVEN AND PT DISCHARGED VIA WHEELCHAIR TO HOME WITH A FAMILY MEMBER.
== END 2017-05-27 13:08 | disposition home or self-care (01) | DRG 442 ==
LOC: D.ER 18:17 → D.MS 20:16
PROVIDERS: Emergency Medicine; Internal Medicine Gastroenterology; Internal Medicine Nephrology; ADMIT Family Medicine
PROC: 0T9B70Z Drainage of Bladder with Drainage Device, Via Natural or Artificial Opening (ICD-10-PCS; principal; 2017-05-19)
PROC: 0DH63UZ Insertion of Feeding Device into Stomach, Percutaneous Approach (ICD-10-PCS; 2017-05-23)
DX: K72.90 Hepatic failure, unspecified without coma (principal); N17.9 Acute kidney failure, unspecified; E87.2 Acidosis; E87.1 Hypo-osmolality and hyponatremia; N39.0 Urinary tract infection, site not specified; N18.4 Chronic kidney disease, stage 4 (severe); D62 Acute posthemorrhagic anemia; E72.20 Disorder of urea cycle metabolism, unspecified; R30.0 Dysuria; E86.0 Dehydration; M54.9 Dorsalgia, unspecified; E87.6 Hypokalemia; I12.9 Hypertensive chronic kidney disease with stage 1 through stage 4 chronic kidney disease, or unspecified chronic kidney disease; E11.22 Type 2 diabetes mellitus with diabetic chronic kidney disease; F17.200 Nicotine dependence, unspecified, uncomplicated; E11.40 Type 2 diabetes mellitus with diabetic neuropathy, unspecified; B19.20 Unspecified viral hepatitis C without hepatic coma; K74.60 Unspecified cirrhosis of liver; I73.9 Peripheral vascular disease, unspecified; E83.51 Hypocalcemia; G47.00 Insomnia, unspecified; B96.1 Klebsiella pneumoniae [K. pneumoniae] as the cause of diseases classified elsewhere; R33.9 Retention of urine, unspecified; D69.6 Thrombocytopenia, unspecified

== ENCOUNTER → 2017-05-29 10:49 | Outpatient (CLI) | payer MEDICARE, MEDICAID ==
[2017-05-20 13:06] VITALS: BMI 32.0
[~2017-05-29 10:49] MED LIST changes: +POTASSIUM20 MEQ/11 PEG
[2017-05-29 11:34] LABS: BASOPHILS 0.1 % (0-2); EOSINOPHILS 1.7 % (0-7); HEMOGLOBIN 9.9 g/dL (12-16); IMMATURE GRANULOCYTES 0.4 % (0-5); LYMPHOCYTES 4.3 % (15-50); MCH 31.2 pg (26.0-34.0); MCHC 34.1 g/dL (31.0-37.0); MCV 91.5 fL (80.0-100.0); MONOCYTES 7.5 % (2-11); RBC 3.17 10x6/uL (4.00-5.40); RDW 15.5 % (11.5-14.5); WBC 10.6 10x3/uL (4.8-10.8)
[2017-05-29 11:38] LABS: INR 1.25 (0.85-1.17); PLATELET COUNT 130 10x3/uL (130-400); PROTIME 15.6 SECONDS (11.6-15.0)
[2017-05-29 11:47] LABS: ALBUMIN 1.6 g/dL (3.4-5.0); BILIRUBIN - DIRECT 0.19 mg/dL (0.00-0.30); BILIRUBIN - INDIRECT 0.22 mg/dL (0.00-1.00); BILIRUBIN - TOTAL 0.41 mg/dL (0.2-1.3); CALCIUM 8.6 mg/dL (8.5-10.1); CARBON DIOXIDE 16.9 mmol/L (21.0-32.0); CREATININE - SERUM 2.9 mg/dL (0.6-1.3); PROTEIN - SERUM 6.6 g/dL (6.4-8.2)
[2017-05-29 12:00] LABS: ANION GAP 18.1 mmol/L (8-16)
== END | disposition home or self-care (01) ==
LOC: D.LAB 10:49 → D.LDO 10:49
PROVIDERS: Internal Medicine Gastroenterology
DX: K74.60 Unspecified cirrhosis of liver (principal)

== ENCOUNTER → 2017-06-04 08:30 | Outpatient (CLI) | payer MEDICARE, MEDICAID ==
[2017-05-20 13:06] VITALS: BMI 32.0
[2017-06-04 08:59] LABS: BASOPHILS 0.1 % (0-2); EOSINOPHILS 1.7 % (0-7); HEMATOCRIT 28.5 % (36.0-48.0); HEMOGLOBIN 9.9 g/dL (12-16); IMMATURE GRANULOCYTES 0.7 % (0-5); LYMPHOCYTES 6.2 % (15-50); MCH 31.4 pg (26.0-34.0); MCHC 34.7 g/dL (31.0-37.0); MCV 90.5 fL (80.0-100.0); MEAN PLATELET VOLUME 9.7 fL (7.4-10.4); MONOCYTES 6.2 % (2-11); NEUTROPHILS 85.1 % (40-80); RBC 3.15 10x6/uL (4.00-5.40); RDW 15.4 % (11.5-14.5); WBC 10.3 10x3/uL (4.8-10.8)
[2017-06-04 09:04] LABS: PLATELET COUNT 172 10x3/uL (130-400)
[2017-06-04 09:06] LABS: INR 1.26 (0.85-1.17); PROTIME 15.7 SECONDS (11.6-15.0)
[2017-06-04 09:28] LABS: ALBUMIN 1.7 g/dL (3.4-5.0); ANION GAP 16.1 mmol/L (8-16); BILIRUBIN - TOTAL 0.34 mg/dL (0.2-1.3); CALCIUM 8.2 mg/dL (8.5-10.1); CARBON DIOXIDE 21.5 mmol/L (21.0-32.0); CREATININE - SERUM 3.1 mg/dL (0.6-1.3); PROTEIN - SERUM 6.2 g/dL (6.4-8.2)
[2017-06-04 09:35] LABS: POTASSIUM - SERUM 2.6 mmol/L (3.5-5.1)
== END | disposition home or self-care (01) ==
LOC: D.LAB 08:00
PROVIDERS: Internal Medicine Gastroenterology
DX: K74.69 Other cirrhosis of liver (principal); K72.90 Hepatic failure, unspecified without coma; D69.6 Thrombocytopenia, unspecified; R16.1 Splenomegaly, not elsewhere classified

== ENCOUNTER 2017-06-10 08:06 | Emergency (ER) | payer MEDICARE, MEDICAID ==
[2017-05-20 13:06] VITALS: BMI 32.0
[2017-06-10 08:58] LABS: INR 1.43 (0.85-1.17); PROTIME 17.3 SECONDS (11.6-15.0)
[2017-06-10 09:08] LABS: ALKALINE PHOSPHATASE 232 U/L (46-116); ALT (SGPT) 21 U/L (10-68); BILIRUBIN - TOTAL 0.49 mg/dL (0.2-1.3); CALCIUM 8.9 mg/dL (8.5-10.1); CARBON DIOXIDE 10.6 mmol/L (21.0-32.0); CHLORIDE - SERUM 105 mmol/L (98-107); CREATINE KINASE 21 UL (21-215); CREATININE - SERUM 3.8 mg/dL (0.6-1.3); PROTEIN - SERUM 7.5 g/dL (6.4-8.2); SODIUM 127 mmol/L (136-145); UREA NITROGEN 68 mg/dL (7-18); eGFR NON AFRICAN AMERICAN 13 mL/min (90-120)
[2017-06-10 09:09] LABS: CALC OSMOLALITY 287 mosm/kg (275-300); GLUCOSE 330 mg/dL (74-106); TROPONIN-I 0.103 ng/mL (0.000-0.060)
[2017-06-10 09:10] LABS: HEMATOCRIT 36.7 % (36.0-48.0); HEMOGLOBIN 11.9 g/dL (12-16); MCH 31.6 pg (26.0-34.0); MCHC 32.4 g/dL (31.0-37.0); MCV 97.3 fL (80.0-100.0); RBC 3.77 10x6/uL (4.00-5.40); RDW 15.7 % (11.5-14.5); WBC 30.9 10x3/uL (4.8-10.8)
[2017-06-10 09:11] LABS: MEAN PLATELET VOLUME 9.9 fL (7.4-10.4); PLATELET COUNT 342 10x3/uL (130-400)
[2017-06-10 09:35] LABS: CKMB 0.7 U/L (0.0-3.6)
[2017-06-10 10:28] LABS: LYMPHOCYTES 14 % (15-50); MONOCYTES 8 % (2-11); NEUTROPHILS 76 % (40-80); PLATELET ESTIMATE NORMAL
== END 2017-06-10 08:45 ==
LOC: D.ER 08:06
PROVIDERS: Emergency Medicine
DX: I46.9 Cardiac arrest, cause unspecified (principal); J96.00 Acute respiratory failure, unspecified whether with hypoxia or hypercapnia; J18.9 Pneumonia, unspecified organism; E11.9 Type 2 diabetes mellitus without complications; I10 Essential (primary) hypertension